=== PATIENT | female | born 1960 | race Hispanic/Latino ===

== ENCOUNTER 2019-12-05 22:09 | Inpatient (IN) | payer BC, OTHER ==
[2019-12-05] MEDS ORDERED: ONDANSETRON 4 MG/2 ML VIAL ONE (22:41)
[2019-12-05] MEDS ORDERED: FAMOTIDINE 20 MG/2 ML VIAL IV ONE (22:43)
[2019-12-05 22:46] LABS: Absolute Lymphocytes (CBC) 3.4 K/uL (0.7-4.9); Hematocrit 42.9 % (36.0-45.0); Lymphocytes % 28.7 % (15.3-44.8); RBC Red Blood Cell Count 5.15 M/uL (3.86-4.86)
[2019-12-05 22:50] LABS: Protime INR 0.93
[2019-12-05 23:03] LABS: Potassium 3.6 mmol/L (3.5-5.1)
[2019-12-05 23:16] LABS: Phosphorus 2.7 mg/dL (2.5-4.9)
[2019-12-05] MEDS ORDERED: NA CHLORIDE 0.9% 1,000 ML ONE (23:23)
[2019-12-06] LABS: NT PRO-BNP 25 pg/mL (<125); Troponin (Emerg Dept Use Only) < 0.02 ng/mL (0.0-0.045)
[2019-12-06] MEDS ORDERED: NA CHLORIDE 0.9% 50 ML IV ONE (00:23)
[2019-12-06] MEDS ORDERED: ALTEPLASE 100 ML IV ONE (00:23)
--- NOTE | 2019-12-06 01:10 | ER ---
Nurse's Notes [facility] Name: Omayra Mancia Age: 59 yrs Sex: Female : 1960 Arrival Date: 12/05/2019 Time: 22:19 Bed 3 Private MD: Diagnosis: Cerebral Vascular Accident Presentation: 12/04 22:06 Chief complaint: EMS states: Called for patient with numbness of face and left arm; On lp1 arrival of EMS, patient vomiting, then not taking back to EMS, but nodding head for questions; States numbness of face and left arm began about 2130 tonight. 22:06 Coronavirus screen: Patient unable to answer questions. Ebola Screen: No symptoms or lp1 risks identified at this time. Initial Sepsis Screen: Does the patient meet any 2 criteria? No. Patient's initial sepsis screen is negative. Does the patient have a suspected source of infection? No. Patient's initial sepsis screen is negative. Risk Assessment: Do you want to hurt yourself or someone else? Patient reports no desire to harm self or others. Onset of symptoms was December 05, 2019 at 21:30. Care prior to arrival: Glucose check: 137 Unable to obtain peripheral IV access. 22:06 Method Of Arrival: EMS: [facility] lp1 22:06 Acuity: FATMATA 2 lp1 Historical: - Allergies: 22:43 No Known Allergies; lp1 - Home Meds: 22:43 simvastatin 20 mg Oral tab nightly [Active]; quetiapine 25 mg oral tab nightly lp1 [Active]; trazodone 50 mg Oral tab nightly [Active]; metformin 500 mg Oral tab three times a day [Active]; - PMHx: 22:43 Bronchitis; lp1 - PSHx: 12/05 01:10 Hysterectomy; Cholecystectomy; lp1 - Immunization history:: Adult Immunizations unknown. - Social history:: Smoking status: Patient denies any tobacco usage or history of. Screenin/25 22:43 Abuse screen: Denies threats or abuse. Denies injuries from another. Nutritional lp1 screening: No deficits noted. Tuberculosis screening: No symptoms or risk factors identified. Fall Risk Total Thomas Fall Scale indicates High Risk Score (45 or more points). Fall prevention measures have been instituted. Side Rails Up X 2 Placed Close to Nursing Station Frequent Obs/Assessments Occuring. 22:50 Patient has been NPO before screening. The patient is alert, able to follow commands. lp1 The patient does not exhibit slurred or garbled speech The patient is not exhibiting difficulty speaking. The patient does not exhibit difficulty understanding words. The patient is able to swallow own secretions with no drooling or need for suction. Patient tolerated one teaspoon of water. No drooling, immediate coughing, gurgling, or clearing of the throat was noted. The patient tolerated 90mL of water. No drooling, immediate coughing, gurgling, or clearing of the throat was noted. The patient passed the bedside swallow screening. Oral medications may be given as ordered. Contact Physician for further diet orders. Assessment: 22:08 Reassessment: Patient transported to CT; actively vomiting, bile noted 100ml; noted to lp1 clear airway independently. 22:20 Reassessment: Patient uncooperative with NIH stroke scale assessment; keeping eyes lp1 closed and only nodding head. 22:50 Reassessment: Patient speaking with Dr. Peñaloza at this time; States feeling arms heavy, lp1 numbness around mouth. 22:55 Reassessment: Patient states starting to feel bad about 10 min until 2100 tonight, then lp1 began vomiting, x2 episodes of diarrhea. 23:30 Reassessment: Patient appears more alert at this time; interacting with at lp1 bedside; States bilateral arms feeling "heavy" and numbness around mouth Patient states symptoms have improved. 23:30 General: Appears in no apparent distress. Behavior is calm, cooperative. Pain: Denies lp1 pain. Neuro: Level of Consciousness is awake, obeys commands, lethargic, Oriented to person, place, situation. Cardiovascular: Patient's skin is warm and dry. Rhythm is sinus tachycardia. Respiratory: Respiratory effort is even, unlabored. GI: Abdomen is non-distended. : No signs and/or symptoms were reported regarding the genitourinary system. EENT: No signs and/or symptoms were reported regarding the EENT system. Derm: Skin is pink, warm \\T\\ dry. Musculoskeletal: Range of motion: intact in all extremities. 23:45 Reassessment: Dr. Peñaloza at bedside to discuss plan of care related to CT results; lp1 patient and agree to administration of TPA and demonstrate understanding of risks. 12/05 00:15 Reassessment: Nurse at bedside with patient for TPA administration. lp1 01:33 Reassessment: Hospitalist at bedside to discuss plan of care with patient. lp1 Vital Signs: 12/04 22:06 BP 170 / 101; Pulse 103; Resp 20; Temp 98.3(TE); Pulse Ox 98% on R/A; Weight 99.79 kg; lp1 22:45 BP 141 / 98; Pulse 101; Resp 16; Pulse Ox 96% on R/A; lp1 23:00 BP 144 / 98; Pulse 101; Resp 20; Pulse Ox 100% on R/A; lp1 23:30 BP 146 / 95; Pulse 108; Resp 20; Pulse Ox 97% on R/A; lp1 12/05 00:00 BP 137 / 95; Pulse 103; Resp 20; Pulse Ox 100% on R/A; lp1 00:06 Weight 85.8 kg (M); lp1 01:05 BP 133 / 91; Pulse 107; Resp 20; Pulse Ox 96% on R/A; lp1 01:35 BP 135 / 89; Pulse 104; Resp 17; Pulse Ox 98% on R/A; lp1 NIH Stroke Scale Scores: 12/04 22:15 NIHSS Score: 17 mh7 22:20 NIHSS Score: 17 lp1 23:00 NIHSS Score: 1 lp1 ED Course: 22:10 Inserted saline lock: 20 gauge in left wrist, using aseptic technique. Blood collected. rr5 22:15 Arm band placed on. lp1 22:15 Patient has correct armband on for positive identification. Bed in low position. Side lp1 rails up X2. compliance monitor on. Pulse ox on. NIBP on. 22:19 Patient arrived in ED. rr5 22:33 Marvin Peñaloza MD is Attending Physician. mh7 22:33 CT Stroke Brain w/o Contrast In Process Unspecified. EDMS 22:39 Jodi Brush, JOLLY is Primary Nurse. lp1 22:41 Triage completed. lp1 22:42 Stroke CXR 1 View In Process Unspecified. EDMS 12/05 00:00 Consent signed by patient's for administration of TPA. lp1 00:11 Inserted saline lock: 20 gauge in right wrist, using aseptic technique. rr5 00:15 One-on-one care X 60 minutes. lp1 01:08 Baidoo, Jerry is Hospitalizing Provider. 7 01:38 No provider procedures requiring assistance completed. Patient admitted, IV remains in lp1 place. Administered Medications: 12/04 22:30 Drug: Zofran (Ondansetron) 4 mg Route: IVP; Site: left wrist; lp1 23:50 Follow up: Response: Nausea is decreased lp1 22:30 Drug: Pepcid 20 mg Route: IVP; Site: left wrist; lp1 23:50 Follow up: Response: Nausea is decreased lp1 23:30 Drug: NS 0.9% 1000 ml Route: IV; Rate: 1000 ml; Site: left wrist; lp1 12/05 00:30 Follow up: IV Status: Completed infusion; IV Intake: 1000ml lp1 00:20 Drug: Alteplase {Co-Signature: rr5 (Jose Antonio Ortega RN).} Route: IV Thrombolytics; Rate: lp1 calculated rate; 01:37 Follow up: Response: No adverse reaction lp1 Intake: 00:30 IV: 1000ml; Total: 1000ml. lp1 Outcome: 01:09 Decision to Hospitalize by Provider. mh7 01:38 critical lp1 01:38 Instructed on the need for admit. 01:50 Admitted to ICU room ER room 10, Report called to JOLLY Moya lp1 02:08 Patient left the ED. lp1 NIH Stroke Scale - NIH Stroke Score Date: 12/05/2019 Time: 22:15 Total Score = 17 1a. Level of Consciousness (LOC) - 0(Alert) 1b. Level of Consciousness (LOC) (Year \\T\\ Age) - 2(Neither) 1c. LOC Commands (Open \\T\\ Closes Eyes/Finance Admin) - 2(Neither) 2. Best Gaze (Lateral Gaze Paresis) - 0(Normal) 3. Visual Field Loss - 0(No visual loss) 4. Facial Palsy - 0(Normal) 5a. Left Arm: Motor (10-second hold) - 3(No effort against gravity) 5b. Right Arm: Motor (10-second hold) - 3(No effort against gravity) 6a. Left Leg: Motor (5-second hold - always test supine) - 3(No effort against gravity) 6b. Right Leg: Motor (5-second hold - always test supine) - 3(No effort against gravity) 7. Limb Ataxia (finger/nose \\T\\ heel/shipman - test with eyes open) - 0(Absent) 8. Sensory Loss (pinprick arms/legs/face) - 1(Mild to moderate loss) 9. Best Language: Aphasia (description/naming/reading) - 0(No aphasia) 10. Dysarthria (speech clarity - read or repeat words) - 0(Normal) 11. Extinction and Inattention (visual/tactile/auditory/spatial/personal) - 0(No abnormality) Initials: mh7 NIH Stroke Scale - NIH Stroke Score Date: 12/05/2019 Time: 22:20 Total Score = 17 1a. Level of Consciousness (LOC) - 0(Alert) 1b. Level of Consciousness (LOC) (Year \\T\\ Age) - 2(Neither) 1c. LOC Commands (Open \\T\\ Closes Eyes/Finance Admin) - 2(Neither) 2. Best Gaze (Lateral Gaze Paresis) - 0(Normal) 3. Visual Field Loss - 0(No visual loss) 4. Facial Palsy - 0(Normal) 5a. Left Arm: Motor (10-second hold) - 3(No effort against gravity) 5b. Right Arm: Motor (10-second hold) - 3(No effort against gravity) 6a. Left Leg: Motor (5-second hold - always test supine) - 3(No effort against gravity) 6b. Right Leg: Motor (5-second hold - always test supine) - 3(No effort against gravity) 7. Limb Ataxia (finger/nose \\T\\ heel/shipman - test with eyes open) - 0(Absent) 8. Sensory Loss (pinprick arms/legs/face) - 1(Mild to moderate loss) 9. Best Language: Aphasia (description/naming/reading) - 0(No aphasia) 10. Dysarthria (speech clarity - read or repeat words) - 0(Normal) 11. Extinction and Inattention (visual/tactile/auditory/spatial/personal) - 0(No abnormality) Initials: lp1 NIH Stroke Scale - NIH Stroke Score Date: 12/05/2019 Time: 23:00 Total Score = 1 1a. Level of Consciousness (LOC) - 0(Alert) 1b. Level of Consciousness (LOC) (Year \\T\\ Age) - 0(Both) 1c. LOC Commands (Open \\T\\ Closes Eyes/Finance Admin) - 0(Both) 2. Best Gaze (Lateral Gaze Paresis) - 0(Normal) 3. Visual Field Loss - 0(No visual loss) 4. Facial Palsy - 0(Normal) 5a. Left Arm: Motor (10-second hold) - 0(No drift) 5b. Right Arm: Motor (10-second hold) - 0(No drift) 6a. Left Leg: Motor (5-second hold - always test supine) - 0(No drift) 6b. Right Leg: Motor (5-second hold - always test supine) - 0(No drift) 7. Limb Ataxia (finger/nose \\T\\ heel/shipman - test with eyes open) - 0(Absent) 8. Sensory Loss (pinprick arms/legs/face) - 1(Mild to moderate loss) 9. Best Language: Aphasia (description/naming/reading) - 0(No aphasia) 10. Dysarthria (speech clarity - read or repeat words) - 0(Normal) 11. Extinction and Inattention (visual/tactile/auditory/spatial/personal) - 0(No abnormality) Initials: lp1 Signatures: Dispatcher [employer] EDJodi Mckeon, RN RN lp1 Jose Antonio Ortega, RN RN rr5 Marvin Peñaloza MD MD 7 Jose Antonio Ortega RN rr5 Corrections: (The following items were deleted from the chart) 00:57 12/04 22:06 Care prior to arrival: Unable to obtain peripheral IV access lp1 1 12/05 01:04 12/04 22:08 Reassessment: Patient transported to CT; actively vomiting, bile lp1 noted 100ml lp1 12/05 01:12 12/04 22:43 PSHx: Unable to obtain; lp1 lp1 12/05 01:15 12/04 22:20 Reassessment: Patient uncooperative with NIH stroke scale lp1 assessment lp1
--- NOTE | 2019-12-06 01:11 | EDPHYS ---
Physician Documentation [facility] Name: Omayra Mancia Age: 59 yrs Sex: Female : 1960 Arrival Date: 12/05/2019 Time: 22:19 Bed 3 Private MD: ED Physician Marvin Peñaloza HPI: 12/04 23:56 This 59 yrs old Female presents to ER via EMS with complaints of Numbness mh7 Face. Left Arm. 23:56 The patient's problem is reported as paresthesias, in left upper extremity, in left mh7 side of face. Onset: The symptoms/episode began/occurred today. 23:58 Onset: The symptoms/episode began/occurred at 21:30. Duration: The episodes are mh7 intermittent. Context: the episode(s) was witnessed, by family, , symptoms became apparent on December 05, 2019, at 21:30. occurred at home, occurred while the patient was sitting, Possible contributing factors include: Patient is a know diabetic. The symptoms are alleviated by nothing. The symptoms are aggravated by nothing. Associated signs and symptoms: Pertinent positives: dizziness, nausea, numbness, tingling, vomiting. Severity of symptoms: At their worst the symptoms were moderate today, in the emergency department the symptoms have improved mildly. Patient's baseline: Neuro: alert and fully oriented, Motor: no deficits, Ambulation: walks without assistance, Speech: normal. Patient started having facial and left upper extremity numbness \T\2130 tonight. She also had nausea and vomiting. Per EMS patient suddenly stopped speaking during their assessment then later started to speak again. She denies any headache, chest pain, abdominal pain, fever, cough, SOB.. Historical: - Allergies: 22:43 No Known Allergies; lp1 - Home Meds: 22:43 simvastatin 20 mg Oral tab nightly [Active]; quetiapine 25 mg oral tab nightly lp1 [Active]; trazodone 50 mg Oral tab nightly [Active]; metformin 500 mg Oral tab three times a day [Active]; - PMHx: 22:43 Bronchitis; lp1 - PSHx: 12/05 01:10 Hysterectomy; Cholecystectomy; lp1 - Immunization history:: Adult Immunizations unknown. - Social history:: Smoking status: Patient denies any tobacco usage or history of. ROS: 12/04 23:58 Constitutional: Negative for fever, chills, and weight loss, Eyes: Negative for injury, mh7 pain, redness, and discharge, ENT: Negative for injury, pain, and discharge, Neck: Negative for injury, pain, and swelling, Cardiovascular: Negative for chest pain, palpitations, and edema, Respiratory: Negative for shortness of breath, cough, wheezing, and pleuritic chest pain, Back: Negative for injury and pain, : Negative for injury, bleeding, discharge, and swelling, Skin: Negative for injury, rash, and discoloration, Psych: Negative for depression, anxiety, suicide ideation, homicidal ideation, and hallucinations, Allergy/Immunology: Negative for hives, rash, and allergies, Endocrine: Negative for neck swelling, polydipsia, polyuria, polyphagia, and marked weight changes, Hematologic/Lymphatic: Negative for swollen nodes, abnormal bleeding, and unusual bruising. Exam: 22:15 Head/Face: Normocephalic, atraumatic. Eyes: Pupils equal round and reactive to light, mh7 extra-ocular motions intact. Lids and lashes normal. Conjunctiva and sclera are non-icteric and not injected. Cornea within normal limits. Periorbital areas with no swelling, redness, or edema. ENT: Nares patent. No nasal discharge, no septal abnormalities noted. Tympanic membranes are normal and external auditory canals are clear. Oropharynx with no redness, swelling, or masses, exudates, or evidence of obstruction, uvula midline. Mucous membranes moist. Neck: Trachea midline, no thyromegaly or masses palpated, and no cervical lymphadenopathy. Supple, full range of motion without nuchal rigidity, or vertebral point tenderness. No Meningismus. Chest/axilla: Normal chest wall appearance and motion. Nontender with no deformity. No lesions are appreciated. Cardiovascular: Regular rate and rhythm with a normal S1 and S2. No gallops, murmurs, or rubs. Normal PMI, no JVD. No pulse deficits. Respiratory: Lungs have equal breath sounds bilaterally, clear to auscultation and percussion. No rales, rhonchi or wheezes noted. No increased work of breathing, no retractions or nasal flaring. Abdomen/GI: Soft, non-tender, with normal bowel sounds. No distension or tympany. No guarding or rebound. No evidence of tenderness throughout. Back: No spinal tenderness. No costovertebral tenderness. Full range of motion. Skin: Warm, dry with normal turgor. Normal color with no rashes, no lesions, and no evidence of cellulitis. 22:15 Constitutional: The patient appears in no acute distress, alert. 22:15 Musculoskeletal/extremity: Extremities: all appear grossly normal, with no appreciated pain with palpation, ROM: limited active range of motion, in all extremities, limited passive range of motion, in all extremities, Circulation is intact in all extremities. Pulses: are normal with no appreciated deficits, Perfusion: the patient is normally perfused throughout, Perfusion: the extremity is normally perfused throughout, Tingling of extremity. numbness, Joints: Weight bearing: is unable to bear weight, Tendon exam: specific tendon testing normal through active and passive range of motion 22:15 Neuro: Orientation: unable to test, the patient refuses to cooperate, Mentation: responsive to voice Memory: unable to test, the patient refuses to cooperate, Cranial nerves: unable to test, the patient refuses to cooperate, Cerebellar function: unable to test, the patient refuses to cooperate, Motor: unable to test, the patient refuses to cooperate, Sensation: unable to test, the patient refuses to cooperate, Gait: not tested. Deep tendon reflexes are normal, Babinski testing is normal, seizure activity, is not displayed by the patient, Abnormal movements: there are no abnormal movements. 23:58 Radiologist reports: No acute intracranial findings [facility] Vital Signs: 22:06 BP 170 / 101; Pulse 103; Resp 20; Temp 98.3(TE); Pulse Ox 98% on R/A; Weight 99.79 kg; lp1 22:45 BP 141 / 98; Pulse 101; Resp 16; Pulse Ox 96% on R/A; lp1 23:00 BP 144 / 98; Pulse 101; Resp 20; Pulse Ox 100% on R/A; lp1 23:30 BP 146 / 95; Pulse 108; Resp 20; Pulse Ox 97% on R/A; lp1 12/05 00:00 BP 137 / 95; Pulse 103; Resp 20; Pulse Ox 100% on R/A; lp1 00:06 Weight 85.8 kg (M); lp1 01:05 BP 133 / 91; Pulse 107; Resp 20; Pulse Ox 96% on R/A; lp1 01:35 BP 135 / 89; Pulse 104; Resp 17; Pulse Ox 98% on R/A; lp1 NIH Stroke Scale Scores: 12/04 22:15 NIHSS Score: 17 mh7 22:20 NIHSS Score: 17 lp1 23:00 NIHSS Score: 1 lp1 MDM: 22:15 Response to treatment: the patient's symptoms have markedly improved after treatment. [facility] 22:15 ED course: Patient became more AAO X 3, NAD, VSS, moving extremities without [facility] difficulty. Discussed with Dr. De La Torre who recommended giving TPA for stroke in evolution. Discussed all test results and recommendations and risk/benefits with patient and her . She decided to receive TPA as recommended. She reported symptoms improvement after TPA was given.. 22:[address] [facility] 12/05 01:05 Differential diagnosis: CVA, TIA, paralysis, metabolic disorder, drug effects. Data [facility] reviewed: vital signs, nurses notes, EMS record, lab test result(s), CBC, electrolytes, urinalysis, EKG, radiologic studies, CT scan, plain films. Data interpreted: Pulse oximetry: on room air is 96 %. Interpretation: normal. Counseling: I had a detailed discussion with the patient and/or guardian regarding: the historical points, exam findings, and any diagnostic results supporting the discharge/admit diagnosis, the presence of at least one elevated blood pressure reading (>120/80) during this emergency department visit, lab results, the need for further work-up and treatment in the hospital. Physician consultation: Tee De La Torre MD was contacted at 23:40, regarding patient's condition, and will see patient in inpatient room, would like admission per Dr. Jerry Casas. 12/04 22:27 Order name: Basic Metabolic Panel; Complete Time: 23:25 [facility] 12/04 22:27 Order name: CBC with Diff; Complete Time: 23:25 [facility] 12/04 22:27 Order name: Protime (+inr); Complete Time: 23:25 nd5 12/04 22:27 Order name: Ptt, Activated; Complete Time: 23:25 [facility] 12/04 22:34 Order name: UDS [facility] 12/04 22:35 Order name: Acetaminophen; Complete Time: 23:25 [facility] 12/04 22:35 Order name: Salicylate; Complete Time: 23:41 [facility] 12/04 22:35 Order name: ETOH Level; Complete Time: 23:25 [facility] 12/04 22:35 Order name: Magnesium; Complete Time: 23:25 [facility] 12/04 22:35 Order name: Phosphorus; Complete Time: 23:25 [facility] 12/04 22:40 Order name: Glucose, Ancillary Testing; Complete Time: 22:43 [facility] 12/04 23:25 Order name: Troponin (emerg Dept Use Only); Complete Time: 00:35 [facility] 12/04 23:26 Order name: PROBNP; Complete Time: 00:35 [facility] 12/04 23:38 Order name: Lipase; Complete Time: 00:35 [facility] 12/04 22:27 Order name: CT Stroke Brain w/o Contrast [facility] 12/04 22:27 Order name: Stroke CXR 1 View [facility] 12/04 22:27 Order name: EKG; Complete Time: 22:29 [facility] 12/04 22:27 Order name: Accucheck; Complete Time: 22:46 [facility] 12/04 22:27 Order name: Cardiac monitoring; Complete Time: 22:46 [facility] 12/04 22:27 Order name: EKG - Nurse/Tech; Complete Time: 01:38 [facility] 12/04 22:27 Order name: IV Saline Lock; Complete Time: 22:46 [facility] 12/04 22:27 Order name: Labs collected and sent; Complete Time: 22:46 [facility] 12/04 22:27 Order name: NPO; Complete Time: 22:46 [facility] 12/04 22:27 Order name: O2 Per Protocol; Complete Time: 22:46 [facility] 12/04 22:27 Order name: O2 Sat Monitoring; Complete Time: 22:46 [facility] 12/05 01:37 Order name: CONS Physician Consult [facility] 12/04 22:27 Order name: Stroke Swallow Screen; Complete Time: 01:15 [facility] 12/04 23:38 Order name: Urine Dipstick-Ancillary (obtain specimen); Complete Time: 02:08 Administered Medications: 12/04 22:30 Drug: Zofran (Ondansetron) 4 mg Route: IVP; Site: left wrist; lp1 23:50 Follow up: Response: Nausea is decreased lp1 22:30 Drug: Pepcid 20 mg Route: IVP; Site: left wrist; lp1 23:50 Follow up: Response: Nausea is decreased lp1 23:30 Drug: NS 0.9% 1000 ml Route: IV; Rate: 1000 ml; Site: left wrist; lp1 12/05 00:30 Follow up: IV Status: Completed infusion; IV Intake: 1000ml lp1 00:20 Drug: Alteplase {Co-Signature: [email or web address] (Jose Antonio Ortega RN).} Route: IV Thrombolytics; Rate: lp1 calculated rate; 01:37 Follow up: Response: No adverse reaction lp1 Disposition: 12/06/19 01:09 Hospitalization ordered by Jerry Casas for Inpatient Admission. Preliminary diagnosis is Cerebral Vascular Accident. - Bed requested for Intensive Care Unit. - Status is Inpatient Admission. lp1 - Condition is Stable. - Problem is new. - Symptoms have improved. NIH Stroke Scale - NIH Stroke Score Date: 12/05/2019 Time: 22:15 Total Score = 17 1a. Level of Consciousness (LOC) - 0(Alert) 1b. Level of Consciousness (LOC) (Year \T\ Age) - 2(Neither) 1c. LOC Commands (Open \T\ Closes Eyes/Hypercil [employer] Transformer Assembler) - 2(Neither) 2. Best Gaze (Lateral Gaze Paresis) - 0(Normal) 3. Visual Field Loss - 0(No visual loss) 4. Facial Palsy - 0(Normal) 5a. Left Arm: Motor (10-second hold) - 3(No effort against gravity) 5b. Right Arm: Motor (10-second hold) - 3(No effort against gravity) 6a. Left Leg: Motor (5-second hold - always test supine) - 3(No effort against gravity) 6b. Right Leg: Motor (5-second hold - always test supine) - 3(No effort against gravity) 7. Limb Ataxia (finger/nose \T\ heel/shipman - test with eyes open) - 0(Absent) 8. Sensory Loss (pinprick arms/legs/face) - 1(Mild to moderate loss) 9. Best Language: Aphasia (description/naming/reading) - 0(No aphasia) 10. Dysarthria (speech clarity - read or repeat words) - 0(Normal) 11. Extinction and Inattention (visual/tactile/auditory/spatial/personal) - 0(No abnormality) Initials: mh7 NIH Stroke Scale - NIH Stroke Score Date: 12/05/2019 Time: 22:20 Total Score = 17 1a. Level of Consciousness (LOC) - 0(Alert) 1b. Level of Consciousness (LOC) (Year \T\ Age) - 2(Neither) 1c. LOC Commands (Open \T\ Closes Eyes/Hypercil Core Transformer Assembler) - 2(Neither) 2. Best Gaze (Lateral Gaze Paresis) - 0(Normal) 3. Visual Field Loss - 0(No visual loss) 4. Facial Palsy - 0(Normal) 5a. Left Arm: Motor (10-second hold) - 3(No effort against gravity) 5b. Right Arm: Motor (10-second hold) - 3(No effort against gravity) 6a. Left Leg: Motor (5-second hold - always test supine) - 3(No effort against gravity) 6b. Right Leg: Motor (5-second hold - always test supine) - 3(No effort against gravity) 7. Limb Ataxia (finger/nose \T\ heel/shipman - test with eyes open) - 0(Absent) 8. Sensory Loss (pinprick arms/legs/face) - 1(Mild to moderate loss) 9. Best Language: Aphasia (description/naming/reading) - 0(No aphasia) 10. Dysarthria (speech clarity - read or repeat words) - 0(Normal) 11. Extinction and Inattention (visual/tactile/auditory/spatial/personal) - 0(No abnormality) Initials: lp1 NIH Stroke Scale - NIH Stroke Score Date: 12/05/2019 Time: 23:00 Total Score = 1 1a. Level of Consciousness (LOC) - 0(Alert) 1b. Level of Consciousness (LOC) (Year \T\ Age) - 0(Both) 1c. LOC Commands (Open \T\ Closes Eyes/Hypercil Core Transformer Assembler) - 0(Both) 2. Best Gaze (Lateral Gaze Paresis) - 0(Normal) 3. Visual Field Loss - 0(No visual loss) 4. Facial Palsy - 0(Normal) 5a. Left Arm: Motor (10-second hold) - 0(No drift) 5b. Right Arm: Motor (10-second hold) - 0(No drift) 6a. Left Leg: Motor (5-second hold - always test supine) - 0(No drift) 6b. Right Leg: Motor (5-second hold - always test supine) - 0(No drift) 7. Limb Ataxia (finger/nose \T\ heel/shipman - test with eyes open) - 0(Absent) 8. Sensory Loss (pinprick arms/legs/face) - 1(Mild to moderate loss) 9. Best Language: Aphasia (description/naming/reading) - 0(No aphasia) 10. Dysarthria (speech clarity - read or repeat words) - 0(Normal) 11. Extinction and Inattention (visual/tactile/auditory/spatial/personal) - 0(No abnormality) Initials: lp1 Signatures: Dispatcher [employer] EDMS Elidia Obrien RN RN Jodi Brush RN RN 1 Izabel Gallagher ar5 Marvin Peñaloza MD MD 7 Jose Antonio Ortega RN [email or web address] Corrections: (The following items were deleted from the chart) 01:12 12/04 22:43 PSHx: Unable to obtain; lp1 lp1 12/05 01:35 01:09 Hospitalization Ordered by Jerry Casas for Inpatient Admission. Preliminary diagnosis is Cerebral Vascular Accident. Bed requested for Intensive Care Unit. Status is Inpatient Admission. Condition is Stable. Problem is new. Symptoms have improved. [facility] 02:08 01:35 12/06/2019 01:09 Hospitalization Ordered by Jerry Casas for Inpatient [facility] Admission. Preliminary diagnosis is Cerebral Vascular Accident. Bed requested for Intensive Care Unit. Status is Inpatient Admission. Condition is Stable. Problem is new. Symptoms have improved.
--- NOTE | 2019-12-06 02:03 | P.HP ---
Certification for Inpatient Patient admitted to: Inpatient With expected LOS: >2 Midnights Patient will require the following post-hospital care: None Practitioner: I am a practitioner with admitting privileges, knowledge of patient current condition, hospital course, and medical plan of care. Services: Services provided to patient in accordance with Admission requirements found in Title 42 Section 412.3 of the Code of Federal Regulations <Bryant Giles - Last Filed: 12/06/19 01:53> Patient History Date of Service: 12/06/19 Reason for admission: CVA/weakness History of Present Illness: 59-year-old female with a past medical history of type 2 diabetes mellitus and hyperlipidemia presents to the emergency room via EMS with complaints of possible stroke. Patient states that she was driving home when she felt sudden onset of nausea. She felt a sudden onset of weakness in both arms and both legs. States that she has had intermittent tingling/paresthesias of the left side ever face for greater than 2 months. States that she barely made it home. Told her that she was not feeling well. Ate some watermelon and got nauseous again and vomited. Per family members patient was not able to speak at all when asked questions. Had significant weakness of the arms and legs. EMS was called and patient was brought to the ER. In the emergency room patient was very slow to answer questions. Is alert and oriented x3. Patient has bilateral arm weakness with a 1/5 bilateral hand strength and a 1/5 bilateral leg strength. Her neurologic deficits are bilateral. Patient has generalized weakness on both sides in both arms and legs. Has difficulty maintaining arms extended and lifting legs. Sensation is intact. Speech is intact just slow to answer. ER physician noted that patient also stopped speaking during his assessment and shortly after started speaking again. Neurology was consulted and the patient received tPA in the ER. CT of the brain shows no intracranial bleed. EKG unremarkable. Vital stable and overall lab work in the ED is unremarkable. Blood glucose on arrival to ED was greater than 100. On examination the patient is still having generalized weakness in both upper extremities and lower extremities. Her speech has improved and is able to answer questions but is very slow to speak. Her nausea vomiting have resolved P patient denies chest pain, headache abdominal pain fever cough or shortness of breath. On examination her NIHSS score is 4. Current vitals are blood pressure 133/91, pulse of 107, respiratory 20 and O2 saturations of 96% on room air. Patient will be admitted to the ICU and further evaluated. Home medications list reviewed: Yes - Past Medical/Surgical History -: Type 2 diabetes mellitus -: Hyperlipidemia -: Insomnia -: Cholecystectomy -: Hysterectomy -: Tummy tuck Psychosocial/ Personal History: Lives at home with . - Family History Family History: Reviewed- Non-Contributory - Social History Smoking Status: Never smoker Alcohol use: No CD- Drugs: No Caffeine use: No Place of Residence: Home <TishaBryant - Last Filed: 12/06/19 01:53> Date of Service: 12/06/19 <nestor bishop - Last Filed: 12/06/19 14:10> Allergies No Known Allergies Allergy (Verified 12/06/19 02:45) Home Medications: Metformin HCl 500 mg PO TID 12/06/19 Quetiapine Fumarate [Seroquel] 25 mg PO BEDTIME 12/06/19 Simvastatin 20 mg PO BEDTIME 12/06/19 Trazodone [Desyrel*] 50 mg PO BEDTIME 12/06/19 Review of Systems General: As per HPI Eyes: Unremarkable ENT: Unremarkable Respiratory: Unremarkable Cardiovascular: Unremarkable Gastrointestinal: Nausea, Vomiting Genitourinary: Unremarkable Musculoskeletal: As per HPI Integumentary: Unremarkable Neurological: Weakness, As per HPI Lymphatics: Unremarkable <TishaBryant - Last Filed: 12/06/19 01:53> Physical Examination - Vital Signs Temperature: 98.3 F Blood Pressure: 133/91 Pulse: 107 Respirations: 20 Pulse Ox (%): 96 (RA) - Physical Exam General: Alert, In no apparent distress, Oriented x3, Cooperative HEENT: Atraumatic, Normocephalic, PERRLA, Mucous membr. moist/pink Neck: Supple, No Thyromegaly, Other (Trachea midline) Respiratory: Clear to auscultation bilaterally, Normal air movement Cardiovascular: No edema, Normal pulses Capillary refill: <2 Seconds Gastrointestinal: Normal bowel sounds, Soft and benign, Non-distended Musculoskeletal: No clubbing, No swelling, No contractures, No tenderness Integumentary: No rashes, No breakdown, No significant lesion, No ten derness/swelling Neurological: Normal speech, Normal tone, Sensation intact, Abnormal strength (All 4 extremities) - Studies Laboratory Data (last 24 hrs) 12/05/19 22:34: Lipase 122 12/05/19 22:34: Phosphorus 2.7, Magnesium 2.0 12/05/19 22:34: PT 11.0, INR 0.93, APTT 24.3 12/05/19 22:34: WBC 11.9 H, Hgb 14.4, Hct 42.9, Plt Count 367 12/05/19 22:34: Sodium 139, Potassium 3.6, BUN 9, Creatinine 0.87, Glucose 184 H <Bryant Giles - Last Filed: 12/06/19 01:53> - Studies Laboratory Data (last 24 hrs) 12/05/19 22:34: Lipase 122 12/05/19 22:34: Phosphorus 2.7, Magnesium 2.0 12/05/19 22:34: PT 11.0, INR 0.93, APTT 24.3 12/05/19 22:34: WBC 11.9 H, Hgb 14.4, Hct 42.9, Plt Count 367 12/05/19 22:34: Sodium 139, Potassium 3.6, BUN 9, Creatinine 0.87, Glucose 184 H <nestor bishop - Last Filed: 12/06/19 14:10> Assessment and Plan - Plan Impression: CVA: Type 2 diabetes mellitus: Hyperlipidemia: Plan: CVA: Patient received tPA in the ED. Neurology was consulted. Will order MRI brain in the morning. Echocardiogram and carotid Dopplers as well. Place on continuous telemetry. No anticoagulation for [address] head with no intracranial bleed. Type 2 diabetes mellitus: Accu-Cheks Q 1 hr, mild sliding scale insulin. Monitor blood glucose. Hyperlipidemia: Will resume all medications once patient can tolerate p.o.. Discharge Plan: Home Plan to discharge in: 48 Hours - Advance Directives Does patient have a Living Will: No Does patient have a Durable POA for Healthcare: No - Code Status/Comfort Care Code Status Assessed: Yes Time Spent Managing Pts Care (In Minutes): 55 <Bryant Giles - Last Filed: 12/06/19 01:53> Physician Review: Patient Assessed, Agree with Above Assessment and Plan Physician Review Additional Text: ? Acute CVA. Status post TPA. Plan: Neurology consult Repeat CT head within 24 hours Permissive hypertension. <nestor bishop - Last Filed: 12/06/19 14:10>
[2019-12-06 02:55] VITALS: BMI 33.5
[2019-12-06] MEDS: NA CHLORIDE 0.9% 1,000 ML IV SCH ×2 (03:18→16:38)
[2019-12-06] MEDS ORDERED: NA CHLORIDE 0.9% 1,000 ML IV SCH (03:18)
[2019-12-06] MEDS ORDERED: NA CHLORIDE 0.9% 1,000 ML ONE (03:52)
[2019-12-06] MEDS: INSULIN -REGULAR HUMAN 50 UNIT/0.5 ML ML SQ SCH ×4 (06:00→20:38)
[2019-12-06 06:35] LABS: Absolute Lymphocytes (CBC) 2.7 K/uL (0.7-4.9); Basophils % 1.2 % (0-1.3); Hematocrit 38.8 % (36.0-45.0); Lymphocytes % 21.8 % (15.3-44.8); MPV 7.9 fL (7.6-11.3); RBC Red Blood Cell Count 4.62 M/uL (3.86-4.86)
[2019-12-06 06:39] LABS: Protime INR 1.01
[2019-12-06 06:45] LABS: Magnesium 2.2 mg/dL (1.8-2.4)
--- NOTE | 2019-12-06 12:25 | EKG ---
Test Date: 2019-12-05 Test Time: 22:25:40 Wellness Program Administrator: RR MEASUREMENT RESULTS: Intervals: Rate: 104 ID: [id number] QRSD: 90 QT: 350 QTc: 460 [place]: P: 36 ID: [id number] QRS: 22 T: 3 INTERPRETIVE STATEMENTS: Sinus tachycardia Otherwise normal ECG Compared to ECG 04/16/2017 02:39:40 Sinus rhythm no longer present Electronically Signed On 12-06-19 12:24:14 CDT by Roldan Reyes
--- NOTE | 2019-12-06 14:16 | P.PN ---
Date of Service: 12/06/19 Patient seen and examined. She stated she is able to talk better and moving her limbs more now. She is complaining of neck pain. Blood pressure is soft. Speech is better but also reporting generalized body pains. Power in all limbs-4/5. Plan: Neurology consult is pending. Speech therapy evaluate for dysphagia. Check lipid profile Check UA. Repeat CT in 24 hrs after which aspirin will be initiated. Obtain MRI of the brain.
--- NOTE | 2019-12-06 18:08 | RAD REPORT ---
EXAM DESCRIPTION: CT - Head Brain Wo Cont - 12/06/2019 5:36 pm CLINICAL HISTORY: cva COMPARISON: December 05, 2019 TECHNIQUE: Computed axial tomography of the head was obtained. IV contrast was not requested. All CT scans are performed using dose optimization technique as appropriate and may include automated exposure control or mA/KV adjustment according to patient size. FINDINGS: An intracranial bleed is not seen . The ventricles are normal in caliber. No extra-axial fluid collection is noted. Fluid within the sinuses/ mastoids is not seen. IMPRESSION: No acute intracranial abnormality is seen. If patient's symptoms persist MRI of the bra in would be recommended.
--- NOTE | 2019-12-06 20:56 | RAD REPORT ---
EXAM DESCRIPTION: USCarotid Artery Bilateral12/06/2019 8:02 pm CLINICAL HISTORY: CVA COMPARISON: None FINDINGS: The velocity of the right internal carotid artery equals 69 cm/sec. The right ICA/CCA rati o point The velocity of the left internal carotid artery equals 90 cm/sec. The left ICA/CCA ratio 0.9 Plaque is not visualized within the carotid arteries The vertebral arteries demonstrate antegrade flow IMPRESSION: Unremarkable exam NASCET criteria used. Mild 0-49% stenosis Moderate 50-69% stenosis Severe 70-99% stenosis
--- NOTE | 2019-12-06 21:28 | CON ---
Reason For Consultation: Consultation called because of possible stroke. History Of Present Illness: Ms. Mancia is a 59-year-old right-handed patient with diabete s mellitus type 2 and dyslipidemia, who developed possible stroke-like symptoms yesterday while drnenai ng home. Her said she ate at a restaurant and about maybe 6 hours later developed nausea, vo miting, diarrhea, and then had some numbness on her face, although she was not clear which side, and weakness and it was actually placed on both arms, both legs, and both sides of the face. What she at e was apparently a watermelon, but may have been something else at the restaurant. She was brought b y EMS to [facility] and her head CT scan was negative. She was in the window for tPA and si nce it was possible, it could be a posterior circulation stroke. In evolution, she did receive tPA. Post tPA, her symptoms were slowly resolving. She did have an NIH stroke scale of 4 at the time she received a tPA and within several hours of receiving fluids and medications for nausea, symptoms ess entially resolved and there was no again focal weakness to her symptoms. Repeat CT scan done today s hows no evidence of any acute ischemic or hemorrhagic stroke and in my evaluation, the patient has a normal neurological examination without any deficits. Past Medical History: As indicated in addition to insomnia. Past Surgical History: Cholecystectomy, hysterectomy, and abdominoplasty. Social History: Lives with at home. No alcohol, tobacco, or IV drug use. Family History: Noncontributory. Allergies: NO KNOWN DRUG ALLERGIES. Medications: At home, metformin 500 mg 3 times a day, Seroquel 25 mg at bedtime, simvastatin 10 mg a t bedtime, Desyrel 50 mg at bedtime. Review of Systems: Aside from mentioned above where she had the nausea and vomiting, there was no fevers or chills. No myalgias, arthralgias, rash, headache, weight change. No psychiatric issues. No dermatological issu es. No genitourinary issues. Physical Examination: Vital Signs: Blood pressure 123/62, pulse 74, respiratory rate 16 to 18, temperature 98.6, oxygen sa turation 99% on room air, weight 189 pounds, height 5 feet 3 inches, BMI 33.5. General: Ms. Mancia is resting in bed. Her sister and are at the bedside. She is in no a cute distress. HEENT: She is normocephalic, atraumatic. Sclerae anicteric. Oropharynx is pink and moist. Neck: Supple. Chest: Clear. Heart: Regular. Extremities: No edema, clubbing, or cyanosis. Neurologic: She is alert and oriented to person, place, situation, time. Follows all commands appro priately. Cranial nerves 2 through 12 are intact by exam. Motor examination in the upper and lower extremities are 5/5 proximally and distally. Sensory exam intact to light touch, pinprick, and tempe rature in arms and legs. Coordination intact in upper and lower extremities. Reflexes 2+ in the upp er and lower extremities and symmetric. She has actually good stance, stride, and arm swing in terms of gait. Laboratory Studies: Complete blood count with differential is normal. She had a slightly elevated w radha blood cell count of 12.3 with normal differential, normal hemoglobin and hematocrit. INR 1.01. Chemistries remarkable for a slightly elevated glucose 149 max, calcium slightly low at 8.4, magnesi um normal at 2.2, lipase normal at 122, sodium and potassium normal, carbon dioxide, BUN, creatinine normal. Her drug screen did show it was negative. Her electrocardiogram showed sinus tachycardia, o therwise normal. Assessment: Ms. Mancia is a 59-year-old patient with symptoms that are not necessarily consistent with a stroke, possibly posterior circulation. In the event, CT was negative prior to tPA and negati ve since tPA, and her symptoms have resolved. More likely, she has a gastrointestinal related set of symptoms, perhaps after eating some watermelon or some unusual foods. She has not been ruled out fo r COVID-19, which can present in this fashion as well. Plan: 1.COVID-19 nasal swab test. 2.The patient may go home on aspirin and folic acid. Continue her statin. Aggressive management of diabetes mellitus, hypertension, and regular exercise 30 minutes daily. Hydrate with 8 glasses of w ater daily and follow up in Dr. De La Torre's clinic in 1 month. EULOGIO/DOMINIC Voice ID: [id number] Report ID: [id number]
--- NOTE | 2019-12-06 21:40 | RAD REPORT ---
EXAM DESCRIPTION: RAD - Chest Single View - 12/05/2019 10:42 pm CLINICAL HISTORY: 51-year-old female with weakness. TECHNIQUE: Single view, AP portable chest was obtained. COMPARISON: None. FINDINGS: Unremarkable cardiac and mediastinal silhouette. Heart size is mildly prominent, however m ay be exaggerated by low lung volumes and portable technique. Low lung volumes grossly clear without focal opacity, pneumothorax or pleural effusions. The visual ized bones are within normal limits. IMPRESSION: No acute cardiopulmonary abnormalities. Electronically signed by: Radha Mckenzie MD 12/06/2019 12:17 AM CDT Due to temporary technical issues with the PACS/Fluency reporting system, reports are being signed by the in house radiologist without review as a courtesy to ensure prompt reporting. The interpreting r adiologist is fully responsible for the content of the report.
--- NOTE | 2019-12-06 21:50 | RAD REPORT ---
EXAM DESCRIPTION: CT - Ct Stroke Brain Wo Cont - 12/06/2019 6:49 am ADDENDUM #1 ADDENDUM: THIS REPORT CONTAINS FINDINGS THAT MAY BE CRITICAL TO PATIENT'S CARE: The findings were verbally discussed via telephone conference with Marvin Peñaloza by Dr. Rowley on 12/05/2019 10:46 PM CDT. The results were acknowledged and understood. Electronically signed by: Rafa Rowley DO 12/05/2019 10:57 PM CDT End of Addendum EXAM DESCRIPTION: Ct Stroke Brain Wo Cont CLINICAL HISTORY: 59 years Female MENTAL STATUS CHANGE COMPARISON: None TECHNIQUE: Contiguous axial images of the brain were obtained without the administration of intraven ous contrast.This exam was performed according to our departmental dose-optimization program which in cludes use of Automated Exposure Control, adjustment of the mA and/or kV according to patient size an d/or use of iterative reconstruction technique. DLP: 897 mGy*cm FINDINGS: Brain: No acute intracranial hemorrhage. No extra-axial collection. No mass effect or bea iation. Ventricles: Within normal limits in size. Globes and orbits: No acute abnormality. Bones: No acute osseous finding Paranasal sinuses: Right maxillary mucous retention cyst. No air-fluid level Mastoid air cells: Well pneumatized. Soft tissues: Within normal limits IMPRESSION: No acute intracranial abnormality. Considerable MR brain if clinically indicated. Electronically signed by: Rafa Rowley DO 12/05/2019 10:41 PM CDT Due to temporary technical issues with the PACS/Fluency reporting system, reports are being signed by the in house radiologist without review as a courtesy to ensure prompt reporting. The interpreting r adiologist is fully responsible for the content of the report.
[2019-12-07] MEDS ORDERED: ACETAMINOPHEN 500 MG TAB PO PRN (05:13)
[2019-12-07] MEDS ORDERED: ACETAMINOPHEN 500 MG TAB ONE (05:29)
[2019-12-07] MEDS: INSULIN -REGULAR HUMAN 50 UNIT/0.5 ML ML SQ SCH ×2 (07:30→10:37)
[2019-12-07 08:06] VITALS: TEMP 98
[2019-12-07 10:12] LABS: Absolute Lymphocytes (CBC) 2.8 K/uL (0.7-4.9); Basophils % 1.5 % (0-1.3); Hematocrit 39.6 % (36.0-45.0); Lymphocytes % 37.5 % (15.3-44.8); MPV 7.5 fL (7.6-11.3); RBC Red Blood Cell Count 4.76 M/uL (3.86-4.86)
[2019-12-07 10:24] LABS: Potassium 3.4 mmol/L (3.5-5.1)
[2019-12-07] MEDS ORDERED: POTASSIUM CL SA 10 MEQ TAB PO ONE ×2 (10:36→11:17)
[2019-12-07 12:09] VITALS: O2SAT 97
--- NOTE | 2019-12-07 12:13 | P.PN ---
Subjective Date of Service: 12/07/19 Chief Complaint: CVA/weakness Patient feels quite weak. She is needing a lot of assistance with transfer. She denies headache. Physical Examination - Vital Signs Temperature: 98.0 F Blood Pressure: 109/72 Pulse: 76 Respirations: 22 Pulse Ox (%): 98 - Physical Exam General: In no apparent distress, Oriented x3 Neck: Supple Respiratory: Clear to auscultation bilaterally, Normal air movement Cardiovascular: No edema, Regular rate/rhythm, Normal S1 S2 Gastrointestinal: Normal bowel sounds, Soft and benign, No tenderness Musculoskeletal: No swelling, No erythema Integumentary: No rashes Neurological: Other (Motor 4/5 in all extremities.) Assessment And Plan - Current Problems (Diagnosis) (1) Generalized weakness Current Visit: Yes Status: Acute (2) DM type 2 (diabetes mellitus, type 2) Current Visit: Yes Status: Acute - Plan Cause of global weakness unknown. CVA suspected. Dr. De La Torre's input appreciated. Repeat CT head negative for acute stroke. MRI of the brain not available this weekend. No leukocytosis to suggest sepsis Check UA. IV hydration. Insulin sliding scale for glucose management. Continue PT. MRI of the brain tomorrow.
--- NOTE | 2019-12-07 12:52 | P.DS ---
Admission Date: 12/06/19 Discharge Date: 12/07/19 Disposition: DC HOME/HOME HEALTH CARE Discharge Condition: FAIR Reason for Admission: CVA/weakness - Problems (1) Generalized weakness Current Visit: Yes Status: Acute (2) DM type 2 (diabetes mellitus, type 2) Current Visit: Yes Status: Acute Brief History of Present Illness: 59-year-old woman with a history of diabetes mellitus type 2 and hyperlipidemia presented to the emergency department due to sudden onset of bilateral arm and leg weakness associated with episodes of nausea, paraesthesia in the face, and difficulty speaking. Stroke protocol was initiated in the ED. CT head was negative for acute CVA. Patient was given TPA and admitted for further management. Hospital Course: Patient admitted to the ICU after t-PA administration. His speech got better. She regained some strength in both upper extremity and lower extremities. Motor in all extremities are 4/5. Swallow evaluation revealed no problem with swallowing. Patient tolerated diet. She was evaluated by physical therapy. Patient managed to move without assistance during physical therapy. She was seen and evaluated by neurology-Dr. De La Torre. Repeat CT head did not show any acute CVA. Acute stroke not likely. Patient cleared for discharge by neurology. Patient ambulated with a walker today. Patient placed on aspirin and folic acid. Continue her simvastatin. She is discharged to follow with Dr. De La Torre as an outpatient.. Vital Signs/Physical Exam: Temp Pulse Resp BP Pulse Ox 98.0 F 76 22 H 109/72 98 12/07/19 12:21 12/07/19 12:21 12/07/19 12:21 12/07/19 12:21 12/07/19 12:21 General: Alert, In no apparent distress Neck: Supple Respiratory: Clear to auscultation bilaterally, Normal air movement Cardiovascular: No edema, Regular rate/rhythm, Normal S1 S2 Gastrointestinal: Normal bowel sounds, Soft and benign, No tenderness Integumentary: No rashes Neurological: Other (Nonfocal. Motor in all extremities: 4/5.) Laboratory Data at Discharge: WBC 7.4 K/uL (4.3-10.9) D 12/07/19 09:58 Hgb 13.5 g/dL (12.0-15.0) 12/07/19 09:58 Hct 39.6 % (36.0-45.0) 12/07/19 09:58 Plt Count 322 K/uL (152-406) 12/07/19 09:58 PT 11.9 SECONDS (9.5-12.5) 12/06/19 06:04 INR 1.01 12/06/19 06:04 APTT 25.5 SECONDS (24.3-36.9) 12/06/19 06:04 Sodium 140 mmol/L (136-145) 12/07/19 09:58 Potassium 3.4 mmol/L (3.5-5.1) L 12/07/19 09:58 BUN 7 mg/dL (7-18) 12/07/19 09:58 Creatinine 0.83 mg/dL (0.55-1.3) 12/07/19 09:58 Glucose 194 mg/dL (74-106) H 12/07/19 09:58 Phosphorus 2.7 mg/dL (2.5-4.9) 12/05/19 22:34 Magnesium 2.2 mg/dL (1.8-2.4) 12/06/19 06:04 Triglycerides 172 mg/dL (<150) H 12/07/19 05:13 Cholesterol 154 mg/dL (<200) 12/07/19 05:13 HDL Cholesterol 60 mg/dL (40-60) 12/07/19 05:13 Cholesterol/HDL Ratio 2.57 12/07/19 05:13 Lipase 122 U/L (73-393) 12/05/19 22:34 Home Medications: Metformin HCl 500 mg PO TID 12/06/19 Quetiapine Fumarate [Seroquel] 25 mg PO BEDTIME 12/06/19 Simvastatin 20 mg PO BEDTIME 12/06/19 Trazodone [Desyrel*] 50 mg PO BEDTIME 12/06/19 Aspirin [Aspirin EC 81 MG] 81 mg PO DAILY #30 tablet. 12/07/19 Folic Acid 1 mg PO DAILY #30 tablet 12/07/19 New Medications: Aspirin [Aspirin EC 81 MG] 81 mg PO DAILY #30 tablet. Folic Acid 1 mg PO DAILY #30 tablet Diet: ADA Activity: Fall precautions Followup: Tee De La Torre MD [ASSOCIATE-ACTIVE - CAN ADMIT] - (Within 1 month.)
[2019-12-07] MEDS ORDERED: NA CHLORIDE 0.9% 1,000 ML IV SCH (13:00)
[2019-12-07 14:00] VITALS: BP 107/74
== END 2019-12-07 15:00 | disposition home or self-care (01) | DRG 948 ==
LOC: ER 22:09 → 3RD-ICU 12-06 02:02 → ERHOLD 12-06 03:16
PROVIDERS: ADMIT Internal Medicine; ATTEND Internal Medicine
DX: R53.1 Weakness (principal); E11.9 Type 2 diabetes mellitus without complications; E78.5 Hyperlipidemia, unspecified; R11.0 Nausea; R20.0 Anesthesia of skin; R13.10 Dysphagia, unspecified; R00.0 Tachycardia, unspecified; R29.704 NIHSS score 4; Z90.49 Acquired absence of other specified parts of digestive tract; Z90.710 Acquired absence of both cervix and uterus; Z79.84 Long term (current) use of oral hypoglycemic drugs; Z79.899 Other long term (current) drug therapy; Z20.828 Contact with and (suspected) exposure to other viral communicable diseases
CPT/HCPCS: 36415; 70450; 71045; 80048; 80061; 80320; 80329; 82947; 83690; 83735; 83880; 84100; 84484; 85025; 85610; 85730; 92977; 93005; 93880; 96361; 96374; 96375; 97112; 97116; 97161; 97530; 99291; J2405; J2997; J7030; U0003

== ENCOUNTER 2020-10-20 07:01 | Day surgery (SDC) | payer OTHER ==
[2020-10-15 10:01] LABS: Absolute Lymphocytes (CBC) 2.8 K/uL (0.7-4.9); Hematocrit 42.1 % (36.0-45.0); Lymphocytes % 29.5 % (15.3-44.8); RBC Red Blood Cell Count 5.06 M/uL (3.86-4.86)
[2020-10-15 10:11] LABS: Protime INR 0.99
[2020-10-15 10:23] LABS: Potassium 4.4 mmol/L (3.5-5.1)
--- NOTE | 2020-10-15 10:32 | RAD REPORT ---
EXAM DESCRIPTION: Lukas Dubon And Subhash (2 Views)10/15/2020 10:20 am CLINICAL HISTORY: Preop for knee surgery COMPARISON: 2019 FINDINGS: Calcified lung granulomas. The lungs appear clear of acute infiltrate. The heart is normal size IMPRESSION: No acute abnormalities displayed
--- NOTE | 2020-10-15 10:48 | EKG ---
Test Date: 2020-10-15 Test Time: 08:46:31 Sky Cap: BRITTANY MEASUREMENT RESULTS: Intervals: Rate: 77 NH: 160 QRSD: 82 QT: 378 QTc: 427 [place]: P: 46 NH: 160 QRS: 9 T: -7 INTERPRETIVE STATEMENTS: Normal sinus rhythm T wave abnormality, consider inferior ischemia Abnormal ECG Compared to ECG 12/05/2019 22:25:40 T-wave abnormality now present Possible ischemia now present Sinus tachycardia no longer present Electronically Signed On 10-15-20 10:48:02 CDT by Roldan Reyes
[2020-10-20] MEDS ORDERED: NA CHLORIDE 0.9% 1,000 ML ONE (07:26)
[2020-10-20] MEDS: BUPIVACAINE 0.25% PF 30 ML VIAL ONE ×2 (08:07→09:24)
[2020-10-20] MEDS: CEFAZOLIN/SWI 1gm 1 GM/10 ML SYR ONE ×2 (08:34→08:55)
[2020-10-20] MEDS ORDERED: FENTANYL CITR 100 MCG/2 ML ONE (08:56)
[2020-10-20] MEDS ORDERED: propofoL 200 MG/20 ML VIAL IV ONE (08:56)
[2020-10-20] MEDS ORDERED: KETOROLAC 30 MG/ML INJ ONE (08:57)
[2020-10-20] MEDS ORDERED: MIDAZOLAM HCL 2 MG/2 ML INJ ONE (08:57)
[2020-10-20] MEDS ORDERED: LIDOCAINE 1% MPF 30 ML VIAL ONE (08:58)
[2020-10-20] MEDS ORDERED: DIPHENHYDRAMINE 50 MG/ML VIAL ONE (08:58)
[2020-10-20] MEDS ORDERED: ONDANSETRON 4 MG/2 ML VIAL ONE (08:58)
[2020-10-20 10:34] VITALS: O2SAT 97
--- NOTE | 2020-10-20 10:34 | P.BOP ---
Preoperative diagnosis: left knee lateral meniscus tear Postoperative diagnosis: same Primary procedure: left knee arthroscopic partial lateral meniscectomy Sales Project Administrator: NONE,NONE Estimated blood loss: 3 cc Specimen: none Findings: see dictation Anesthesia: General Complications: None Implants: none Fluids & blood products: per anesthesia record; TT: 28 mins @ 300 mmHg Transferred to: Recovery Room Condition: Good
[2020-10-20 12:03] VITALS: BP 128/79; TEMP 97.7
== END 2020-10-20 11:50 | disposition home or self-care (01) ==
LOC: OR 07:01
PROVIDERS: ATTEND Orthopaedic Surgery Sports Medicine
PROC: 0SBD4ZZ Excision of Left Knee Joint, Percutaneous Endoscopic Approach (ICD-10-PCS; principal; 2020-10-20 08:15)
DX: S83.282A Other tear of lateral meniscus, current injury, left knee, initial encounter (principal); M25.562 Pain in left knee; E11.9 Type 2 diabetes mellitus without complications; Z20.822 Contact with and (suspected) exposure to COVID-19
CPT/HCPCS: 93005; 85025; 80048; 36415; 85610; 82947 ×2; 85730; 71046; 29881; U0002; J2704; J1200; J2250; J3010; J0690; J7030; J2405

== ENCOUNTER 2020-12-11 13:55 | Emergency (ER) | payer OTHER ==
[2020-12-11 15:25] LABS: Absolute Lymphocytes (CBC) 1.7 K/uL (0.7-4.9); Basophils % 0.8 % (0-1.3); Hematocrit 43.4 % (36.0-45.0); Lymphocytes % 10.9 % (15.3-44.8); MPV 7.3 fL (7.6-11.3)
[2020-12-11 15:46] LABS: ALT/SGPT 36 U/L (12-78); AST/SGOT 10 U/L (15-37); Albumin 3.5 g/dL (3.4-5.0); Alkaline Phosphatase 112 U/L (45-117); BUN Blood Urea Nitrogen 21 mg/dL (7-18); Bicarbonate 27 mmol/L (21-32); Bilirubin Total 0.8 mg/dL (0.2-1.0); Glucose Level 146 mg/dL (74-106); Potassium 4.3 mmol/L (3.5-5.1); Protein, Total 7.7 g/dL (6.4-8.2); Sodium Level 137 mmol/L (136-145)
[2020-12-11] MEDS ORDERED: NA CHLORIDE 0.9% 1,000 ML ONE (15:59)
--- NOTE | 2020-12-11 17:13 | EDPHYS ---
Physician Documentation [facility] Name: Omayra Mancia Age: 60 yrs Sex: Female : 1960 Arrival Date: 12/11/2020 Time: 13:58 Bed 20 Private MD: ED Physician Hao Bermudez HPI: 12/11 14:46 This 60 yrs old Female presents to ER via Wheelchair with complaints of High pm1 Blood Sugar. 14:46 The patient or guardian reports hyperglycemia, that was potentially precipitated by pm1 Steroid injection while seeing orthopedics in [facility] and diagnosed chronic arthritis. Onset: The symptoms/episode began/occurred 4 day(s) ago. Associated signs and symptoms: Pertinent positives: Numbness on both sides of her face, Pertinent negatives: Chest pain, shortness of breath, and focal deficits/weakness. Current symptoms: In the emergency department the patient's symptoms are unchanged from the initial presentation. The patient has been recently seen by a physician: for apparently unrelated complaints, Muscle aches, seen by orthopedic doctor in [facility] and diagnosed with chronic arthritis, given shot of steroids. Patient noticed elevated blood sugars post steroid injection and apparently started to worry about her blood sugar levels. Patient additionally dealing with grief regarding of . Patient also reporting numbness to both sides of her face for the past 3 days. Historical: - Allergies: 14:02 No Known Allergies; hb - Immunization history:: Client reports receiving the 2nd dose of the Covid vaccine, Flu vaccine is up to date. - Social history:: Smoking status: Patient denies any tobacco usage or history of. ROS: 14:46 Constitutional: Negative for fever, chills, and weight loss, Cardiovascular: Negative pm1 for chest pain, palpitations, and edema, Respiratory: Negative for shortness of breath, cough, wheezing, and pleuritic chest pain, Abdomen/GI: Negative for abdominal pain, nausea, vomiting, diarrhea, and constipation, MS/Extremity: Negative for injury and deformity, Skin: Negative for injury, rash, and discoloration. 14:46 Neuro: Positive for numbness, of the whole face. 14:46 All other systems are negative. Exam: 14:46 Constitutional: This is a well developed, well nourished patient who is awake, alert, pm1 and in no acute distress. Head/Face: Normocephalic, atraumatic. 14:46 Skin: Warm, dry with normal turgor. Normal color with no rashes, no lesions, and no evidence of cellulitis. 14:46 Cardiovascular: Exam negative for acute changes, Rate: normal, Rhythm: regular, Pulses: no pulse deficits are appreciated. 14:46 Respiratory: Exam negative for acute changes, respiratory distress, shortness of breath. 14:46 Abdomen/GI: Exam negative for acute changes, Inspection: abdomen appears normal, Palpation: abdomen is soft and non-tender, in all quadrants. 14:46 Musculoskeletal/extremity: Exam is negative for acute changes, ROM: intact in all extremities. 14:46 Neuro: Exam negative for acute changes, Orientation: is normal, Mentation: is normal, Cranial nerves: CN II- XII are normal as tested, Motor: moves all fours, strength is 5/5 in all extremities, Gait: is steady, at a normal pace, without difficulty. Vital Signs: 14:00 BP 174 / 108; Pulse 98; Resp 16; Temp 97.9; Pulse Ox 98% on R/A; Weight 81.65 kg; hb Height 5 ft. 4 in. (162.56 cm); Pain 0/10; 14:34 BP 174 / 108; Pulse 98; Resp 16; Temp 97.9; Pulse Ox 98% on R/A; kh1 14:00 Body Mass Index 30.90 (81.65 kg, 162.56 cm) hb Garett Coma Score: 14:34 Eye Response: spontaneous(4). Verbal Response: oriented(5). Motor Response: obeys kh1 commands(6). Total: 15. MDM: 14:20 Patient medically screened. pm1 16:40 Data reviewed: vital signs. Data interpreted: Pulse oximetry: on room air is 98 %. pm1 Interpretation: normal. 16:40 Counseling: I had a detailed discussion with the patient and/or guardian regarding: the pm1 historical points, exam findings, and any diagnostic results supporting the discharge/admit diagnosis, lab results, the need for outpatient follow up, to return to the emergency department if symptoms worsen or persist or if there are any questions or concerns that arise at home. 16:40 ED course: Patient's white count elevated due to steroid injection. Patient without any pm1 complaints or symptoms indicative of infection. 12/11 14:43 Order name: CBC with Diff pm1 12/11 14:43 Order name: CMP pm1 12/11 14:43 Order name: IV Saline Lock; Complete Time: 15:17 pm1 12/11 14:44 Order name: CBC with Automated Diff; Complete Time: 15:53 EDMS 12/11 14:44 Order name: Comprehensive Metabolic Panel; Complete Time: 15:53 EDMS 12/11 14:43 Order name: Urine Dipstick-Ancillary (obtain specimen) pm1 Administered Medications: 16:08 Drug: NS 0.9% 1000 ml Route: IV; Rate: 1000 ml; Site: left wrist; kh1 Disposition Summary: 12/11/20 17:12 Discharge Ordered Location: Home pm1 Problem: new pm1 Symptoms: have improved pm1 Condition: Stable pm1 Diagnosis - Hyperglycemia, unspecified pm1 - Acute stress reaction pm1 Followup: pm1 - With: Emergency Department - When: As needed - Reason: Worsening of condition Followup: pm1 - With: Private Physician - When: 2 - 3 days - Reason: Recheck today's complaints, Continuance of care, Re-evaluation by your physician Discharge Instructions: - Discharge Summary Sheet pm1 - Hyperglycemia pm1 - Blood Glucose Monitoring, Adult pm1 - Diabetes Mellitus and Exercise pm1 - Diabetes Mellitus and Nutrition, Adult pm1 - Stress, Adult pm1 Forms: - Medication Reconciliation Form pm1 - Thank You Letter pm1 - Antibiotic Education pm1 - Prescription Opioid Use pm1 Addendum: 12/16/2020 03:05 Co-signature as Attending Physician, Hao Bermudez MD PA/PRODUCT DEVELOPMENT INTERN's history reviewed, m a2 patient interviewed, and examined. I agree with assessment and care plan and confirm the diagnosis (es) above. Signatures: Dispatcher [employer] EDMS Tyler England NP PRODUCT DEVELOPMENT INTERN pm1 Erica Sepulveda RN RN hb Alzahri, Mohammad, MD MD ca2 Serena Landaverde [facility]
--- NOTE | 2020-12-11 17:13 | ER ---
Nurse's Notes [facility] Name: Omayra Mancia Age: 60 yrs Sex: Female : 1960 Arrival Date: 12/11/2020 Time: 13:58 Bed 20 Private MD: Diagnosis: Hyperglycemia, unspecified;Acute stress reaction Presentation: 12/11 14:00 Chief complaint: Home BGL 200s, malaise, body aches, and generalized weakness x 5 days. hb Coronavirus screen: At this time, the client does not indicate any symptoms associated with coronavirus-19. Ebola Screen: No symptoms or risks identified at this time. Initial Sepsis Screen: Does the patient meet any 2 criteria? No. Patient's initial sepsis screen is negative. Does the patient have a suspected source of infection? No. Patient's initial sepsis screen is negative. Risk Assessment: Do you want to hurt yourself or someone else? Patient reports no desire to harm self or others. Onset of symptoms was December 07, 2020. 14:00 Method Of Arrival: Wheelchair hb 14:00 Acuity: FATMATA 3 hb Historical: - Allergies: 14:02 No Known Allergies; hb - Immunization history:: Client reports receiving the 2nd dose of the Covid vaccine, Flu vaccine is up to date. - Social history:: Smoking status: Patient denies any tobacco usage or history of. Screenin:33 Abuse screen: Denies threats or abuse. Nutritional screening: No deficits noted. kh1 Tuberculosis screening: No symptoms or risk factors identified. Never had TB. Possible symptoms: None Risk factors: None. Fall Risk None identified. No fall in past 12 months (0 pts). No secondary diagnosis (0 pts). IV access (20 points). Ambulatory Aid- None/Bed Rest/Nurse Assist (0 pts). Gait- Normal/Bed Rest/Wheelchair (0 pts) Mental Status- Oriented to own ability (0 pts). Exposure risk/Travel Screening: Recent exposure to [place] been [place] the country[place]. Assessment: 14:33 General: Appears in no apparent distress. uncomfortable, Behavior is crying. Pain: kh1 Denies pain. Neuro: No deficits noted. Level of Consciousness is awake, Oriented to person, place, time, situation, Supplier Relationship Director are equal bilaterally Moves all extremities. Gait is steady, Speech is normal, Facial symmetry appears normal. 15:30 Reassessment: Patient appears in no apparent distress at this time. No changes from 1 previously documented assessment. Patient and/or family updated on plan of care and expected duration. Pain level reassessed. Patient is alert, oriented x 3, equal unlabored respirations, skin warm/dry/pink. 16:38 Reassessment: Patient appears in no apparent distress at this time. No changes from 1 previously documented assessment. Patient and/or family updated on plan of care and expected duration. Pain level reassessed. Patient is alert, oriented x 3, equal unlabored respirations, skin warm/dry/pink. Patient states feeling better. Vital Signs: 14:00 BP 174 / 108; Pulse 98; Resp 16; Temp 97.9; Pulse Ox 98% on R/A; Weight 81.65 kg; hb Height 5 ft. 4 in. (162.56 cm); Pain 0/10; 14:34 BP 174 / 108; Pulse 98; Resp 16; Temp 97.9; Pulse Ox 98% on R/A; kh1 14:00 Body Mass Index 30.90 (81.65 kg, 162.56 cm) hb Garett Coma Score: 14:34 Eye Response: spontaneous(4). Verbal Response: oriented(5). Motor Response: obeys kh1 commands(6). Total: 15. ED Course: 13:58 Patient arrived in ED. as 14:01 Triage completed. hb 14:02 Tyler England NP is PHCP. pm1 14:02 Hao Bermudez MD is Attending Physician. pm1 14:02 Arm band placed on. hb 14:33 Serena Landaverde is Primary Nurse. kh1 15:17 Inserted saline lock: 20 gauge in left antecubital area, using aseptic technique. Blood dh4 collected. 15:27 CBC with Automated Diff Sent. kh1 15:27 Comprehensive Metabolic Panel Sent. kh1 15:27 CMP Sent. kh1 15:27 CBC with Diff Sent. kh1 Administered Medications: 16:08 Drug: NS 0.9% 1000 ml Route: IV; Rate: 1000 ml; Site: left wrist; [facility] Outcome: 17:12 Discharge ordered by . pm1 18:24 Patient left the ED. [facility] Signatures: Filomena Jefferson Patrick, NP BENZENE STILL UTILITY OPERATOR pm1 Erica Sepulveda, RN RN hb Dominic Lemons 4 Serena Landaverde [facility]
[2020-12-11 18:33] VITALS: BP 174/108; TEMP 97.9; O2SAT 98
== END 2020-12-11 18:24 | disposition home or self-care (01) ==
LOC: ER 13:55
DX: F43.0 Acute stress reaction (principal)
CPT/HCPCS: 85025; 36415; 80053; 99283; J7030

== ENCOUNTER 2023-08-09 12:02 | Emergency (ER) | payer OTHER ==
--- OUTSIDE RECORDS SUMMARY | 2023-08-09 12:06 | XMS REPORT | Continuity of Care Document ---
Author Name Unknown Address [address] [facility] [address]. [address] [place] [address] [facility] thconnect Address [address] [facility]. [address] [place] [address] Care Team Providers Care Human Resources Safety Manager Name Role Phone Jewels Tran Primary Care Physician SILAS HANDLEY Attending Clinician Unavailable AARON ZUNIGA Attending Clinician Unavailab ANA Velazquez Attending Clinician Unavailab le LAB45 Attending Clinician Unavailable MARJORIE FLORES Attending Clinician Unavailable AINSLEY ABERNATHY Attending Clinician Unavailable LAB90 Attending Clinician Unavailable EBONY DO Attending Clinician Unavailable JEFFREY GOLDEN Attending Clinician Unavail able [facility] Attending Clinicia n Unavailable KAYLA ALBERTS Attending Clinician Unavailable MILAGRO MORRIS Attending Clinician Unavailab tabatha MATIAS MD Attending Clinician Unavailab RIK Dave Attending Clinician Unavaila REX Patel Attending Clinician Unavailable HUGH FAM Attending Clinician Unavailable TOMOGRAPHY, CK OPTICAL COHERENCE Attending Clini viktoriya Unavailable Will Payan Attending Clinician Unavail able GREGORIO_SWHAWPRHailey_[place] Attending Clinician Unavailab Charline Vance MD Attending Clinician Sarita Fu MA Attending Clinician Unavaila Will Cannon Admitting Clinician Unavail able UNDEFINED Admitting Clinician Unavailable GREGORIO_SWCARLOS_[place] Admitting Clinician Unavailab le Payers Payer Name Policy Type Policy Number Effective Date Expirati on Date Source [facility] MEDINA DUQUE-C COPAY FOCUS 9 [id number] 2023 00:00:00 [employer] MP [facility] 3: [facility] 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 ON 9 [id number] 2022 00:00:00 [facility]) [id number] 2021 00:00:00 Problems Condition Name Condition Details Condition Category Status Onset Date Resolution Date Last Treatment Date Treating Clinician Comments Source URI (upper respirator y infection) URI (upper respirator y infection) Disease Active 05-15 00:00: 00 Nita Pratt - Externa l Pulmonary nodule Pulmonary nodule Disease Active 05-15 00:00: 00 Nita Pratt - Externa l Left lower quadrant abdominal pain Left lower quadrant abdominal pain Disease Active 207 00:00: 00 Nita Pratt - Externa l Acute pain of right shoulder Acute pain of right shoulder Disease Active 2022-03 0-10 00:00: 00 Nita Pratt - Externa l Statin intoleranc e Statin intoleranc e Disease Active 08-31 00:00: 00 Nita Guptaold - Externa l 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 (multi HCC) 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 (multi HCC) Disease Active 06-01 00:00: 00 Nita Pratt - Externa l Diabetes mellitus type 2 without retinopath y Diabetes mellitus type 2 without retinopath y Disease Active 06-01 00:00: 00 Nita Pratt - Externa l Arthralgia of both lower legs Arthralgia of both lower legs Disease Active 05-31 00:00: 00 Nita Pratt - Externa l Screen for colon cancer Screen for colon cancer Disease Active 05-31 00:00: 00 Nita Pratt - Externa l History of colon polyps History of colon polyps Disease Active 05-31 00:00: 00 Nita Seybold - Externa l Arthralgia of both lower legs Arthralgia of both lower legs Disease Active 05-31 00:00: 00 Nita Seybold - Externa l Urinary incontinen ce Urinary incontinen ce Disease Active 05-31 00:00: 00 Nita Seybold - Externa l DM type 2 with diabetic mixed hyperlipid emia (multi HCC) DM type 2 with diabetic mixed hyperlipid emia (multi HCC) Disease Active 05-15 00:00: 00 Niat Seybold - Externa l PVD (periphera l vascular disease) PVD (periphera l vascular disease) Disease Active 05-15 00:00: 00 Nita Seybold - Externa l Primary insomnia Primary insomnia Disease Active 05-15 00:00: 00 Nita Seybold - Externa l History of depression History of depression Disease Active 05-15 00:00: 00 Nita Seybold - Externa l Chronic bilateral low back pain without sciatica Chronic bilateral low back pain without sciatica Disease Active 05-15 00:00: 00 Nita Seybold - Externa l Pain in both hands Pain in both hands Disease Active 05-15 00:00: 00 Nita Seybold - Externa l History of cardioembo lic cerebrovas cular accident (CVA) History of cardioembo lic cerebrovas cular accident (CVA) Disease Active - 00:00: 00 Nita Ortegaybold - Externa l Allergies, Adverse Reactions, Alerts Allergy Name Allergy Type Status Severity Reaction(s) Onset Date Inactive Date Treating Clinician Comments Source Codeine Propensi ty to adverse reaction s Active Nausea and Vomiting 05-02 00:00: 00 Nita Seybold - Externa l Tramadol Propensi ty to adverse reaction s Active Nausea and Vomiting 05-02 00:00: 00 Nita Ortegaybold - Externa l No Known Allergie s DA Active U 8 00:00: [address] [facility] Social [facility] Social Habit Start Date Stop Date Quantity Comments Source Exposure to SARS-CoV-2 (event) Not sure [facility] Gender identity Naomi Pratt - External Sexual orientation Teagan guzman Terence - External Alcoholic beverage intake 2023-07-23 00:00:00 2023-07-23 00:00:00 Lifetime non-drinker (finding) Nita Pratt - External Alcohol intake 2023-05-16 00:00:00 2023-05-16 00:00:00 Lifetime non-drinker (finding) Nita Pratt - External History of Social function 2022-11-27 00:00:00 2022-11-27 00:00:00 Nita Pratt - External Education - What is the highest level of school you have completed or the highest degree you have received? 2022-05-31 00:00:00 2022-05-31 00:00:00 Associate degree: academic program Nita Pratt - External Tobacco use and exposure 2022-05-15 00:00:00 2022-05-15 00:00:00 Smokeless tobacco non-user Nita Pratt - External Sex assigned at 1960 00:00:00 1960 00:00:00 Nita Pratt - External Smoking Status Start Date Stop Date Source Never smoked tobacco Nita Pratt - External Medications Ordered Medication Name Filled Medication Name Start Date Stop Date Current Medication? Ordering Clinician Indication Dosage Frequency Signature (SIG) Comments Components Source Cholecalcif milton (D3) 50 MCG (1999) oral Tablet 07-12 13:34: 21 Yes 1999{tb l} Take 2,000 tablets by mouth daily 2 tabs. Nita tilley Zinc 50 MG oral Tablet 06-26 10:37: 04 Yes 1{tbl} Take 1 tablet by mouth daily Nita tilley Duloxetine HCl [address] Particles 06-26 00:00: 00 Yes [id number] 60mg Take 1 capsule (60 mg total) by mouth daily. Nita Jensena jarek Zinc 50 MG oral Tablet 05-15 16:08: 36 Yes 1{tbl} Take 1 tablet by mouth daily Nita tilley Duloxetine HCl [address] Particles 05-15 00:00: 00 Yes [id number] 30mg Take 1 capsule (30 mg total) by mouth daily. Nita tilley Azithromyci n 250 MG oral Tablet 05-15 00:00: 00 05-21 04:59 :00 Yes [id number] Take 2 tablets by mouth on day 1 then 1 tablet by mouth daily for 4 days thereafter .. Nita tilley Zinc 50 MG oral Tablet 05-02 10:28: 39 Yes 1{tbl} Take 1 tablet by mouth daily Nita tilley Duloxetine HCl [address] Particles 05-02 00:00: 00 Yes [id number] 20mg Take 1 capsule (20 mg total) by mouth daily. Nita tilley Naproxen 500 MG oral Tablet 05-02 00:00: 00 Yes [id number] 500mg Q.5D Take 1 tablet (500 mg total) by mouth 2 times daily as needed (Pain). Nita tilley Zinc 50 MG oral Tablet 04-18 11:08: 52 Yes 1{tbl} Take 1 tablet by mouth daily Nita tilley EQL Natural Zinc 50 MG oral Tablet 04-18 11:07: 49 04-18 00:00 :00 No [id number] 1{tbl} Take 1 tablet by mouth daily Nita tilley PAXLOVID STANDARD (30) (300/100) Therapy Pack 04-13 00:00: 00 04-18 00:00 :00 No [id number] Take two 150 mg nirmatrelv ir (pink) tablets with one 100 mg ritonavir (white) tablet by mouth two times daily for 5 days. Nita tilley Benzonatate (Tessalon Perles) 100 MG oral Capsule 04-12 00:00: 00 05-15 00:00 :00 No [id number] 100mg Q.[id number] 3D Take 1 capsule (100 mg total) by mouth 3 times daily as needed for cough. Nita tilley Diclofenac Sodium 75 MG oral Tablet Delayed Response 03-20 00:00: 00 Yes [id number] 75mg Q.5D Take 1 tablet (75 mg total) by mouth 2 times daily as needed (pain). Nita tilley Glucose Blood (Accu-Chek Noris Plus) in vitro Strip 2022-03 00:00: 00 Yes Check BS twice daily. Nita tilley Bacillus Coagulans-I nulin (Align Prebiotic-P robiotic) 5-1.25 MG-GM oral Chewable Tablet 2022-03 10:01: 06 02-20 00:00 :00 No 1{tbl} Take 1 tablet by mouth daily Nita tilley Aspirin 81 MG oral Tablet Delayed Response 2022-03 10:01: 03 02-20 00:00 :00 No 81mg Take 1 tablet (81 mg total) by mouth daily. Nita tilley EQL Natural Zinc 50 MG oral Tablet 2022-03 10:00: 28 Yes [id number] 1{tbl} Take 1 tablet by mouth daily Nita tilley Azithromyci n 250 MG oral Tablet 2022-03 00:00: 00 Yes [id number] Take 2 tablets by mouth on day 1 then 1 tablet by mouth daily for 4 days thereafter .. Nita tilley Methylpredn isolone Acetate (Depo-Medro l) 40 mg/ml - Physician Administere d ([id number]) 2022-03 20:30: 00 02-05 22:43 :00 No [id number] 40mg Nita tilley Methylpredn isolone Acetate (Depo-Medro l) 40 mg/ml - Physician Administere d ([id number]) 2022-03 20:30: 00 02-05 22:42 :00 No [id number] 20mg Nita tilley EQL Natural Zinc 50 MG oral Tablet 2022-03 13:43: 56 Yes [id number] 1{tbl} Take 1 tablet by mouth daily Nita tilley Bacillus Coagulans-I nulin (Align Prebiotic-P robiotic) 5-1.25 MG-GM oral Chewable Tablet 2022-03 13:43: 56 Yes 1{tbl} Take 1 tablet by mouth daily Nita tilley Aspirin 81 MG oral Tablet Delayed Response 2022-03 13:43: 56 Yes 81mg Take 1 tablet (81 mg total) by mouth daily. Nita tilley EQL Natural Zinc 50 MG oral Tablet 2022-03 13:26: 54 Yes [id number] 1{tbl} Take 1 tablet by mouth daily Nita tilley Bacillus Coagulpricila-I nulin (Align Prebiotic-P robiotic) 5-1.25 MG-GM oral Chewable Tablet 2022-03 13:26: 54 Yes 1{tbl} Take 1 tablet by mouth daily Nita tilley Aspirin 81 MG oral Tablet Delayed Response 2022-03 13:26: 54 Yes 81mg Take 1 tablet (81 mg total) by mouth daily. Nita tilley Diclofenac Sodium 75 MG oral Tablet Delayed Response 2022-03 00:00: 00 Yes [id number] 75mg Q.5D Take 1 tablet (75 mg total) by mouth 2 times daily as needed (pain). Nita tilley Metformin HCl 500 MG oral Tablet 2022-03 00:00: 00 Yes [id number] 3 500mg Take 1 tablet (500 mg total) by mouth 3 times daily (with meals). Nita tilley EQL Natural Zinc 50 MG oral Tablet 2022-03 11:17: 10 Yes [id number] 1{tbl} Take 1 tablet by mouth daily Nita tilley Bacillus Coagulans-I nulin (Align Prebiotic-P robiotic) 5-1.25 MG-GM oral Chewable Tablet 2022-03 11:17: 10 Yes 1{tbl} Take 1 tablet by mouth daily Nita tilley Aspirin 81 MG oral Tablet Delayed Response 2022-03 11:17: 10 Yes 81mg Take 1 tablet (81 mg total) by mouth daily. Nita tilley Fluocinolon e Acetonide (DermOtic) 0.01 % otic Oil 2022-03 00:00: 00 Yes 3 drops each ear once weekly. Nita tilley Na Sulfate-K Sulfate-Mg Sulf (SUPREP BOWEL PREP KIT) 17.5-3.13-1 .6 GM/177ML oral Solution 2022-03 00:00: 00 02-20 00:00 :00 No [id number] Instructio ns provided to patient. Follow instructio ns provided by provider.. Nita tilley Aspirin 81 MG oral Tablet Delayed Response 2022-03 09:18: 16 Yes 81mg Take 1 tablet (81 mg total) by mouth daily. Nita tilley Vibegron (Gemtesa) 75 MG oral Tablet 2022-03 09:09: 43 12-19 00:00 :00 No 1{tbl} Take 1 tablet by mouth daily Nita tilley EQL Natural Zinc 50 MG oral Tablet 2022-03 09:02: 54 Yes [id number] 1{tbl} Take 1 tablet by mouth daily Nita tilley Bacillus Coagulans-I nulin (Align Prebiotic-P robiotic) 5-1.25 MG-GM oral Chewable Tablet 2022-03 09:02: 54 Yes 1{tbl} Take 1 tablet by mouth daily Nita tilley Potassium 99 MG oral Tablet 2022-03 00:00: 00 Yes 1{tbl} QD Take 1 tablet by mouth daily as needed. Nita tilley Meloxicam 15 MG oral Tablet 11-01 00:00: 00 01-16 00:00 :00 No [id number] 15mg QD Take 1 tablet (15 mg total) by mouth daily as needed for pain. Nita tilley Glucose Blood in vitro Strip 10-16 00:00: 00 Yes 100{eac h} 100 each by other route daily Use to check FSBS twice daily and as needed. Nita Ortegakimberleeeli tilley Tizanidine HCl 2 MG oral Tablet 09-19 00:00: 00 12-19 00:00 :00 No [id number] TAKE 1 TABLET BY MOUTH NIGHTLY NEEDED FOR MUSCLE SPASMS. Nita Ortegakimberleeeli tilley EQL Natural Zinc 50 MG oral Tablet 09-18 10:32: 09 Yes [id number] 1{tbl} Take 1 tablet by mouth daily Nita Ortegaleslie Murphy Consuelo jarek Vibegron (Gemtesa) 75 MG oral Tablet 09-18 10:32: 09 Yes 1{tbl} Take 1 tablet by mouth daily Nita Terence tilley Bacillus Coagulans-I nulin (Align Prebiotic-P robiotic) 5-1.25 MG-GM oral Chewable Tablet 09-18 10:32: 09 Yes 1{tbl} Take 1 tablet by mouth daily Nita Terence Jensenanthony jarek Tizanidine HCl 2 MG oral Tablet 09-18 00:00: 00 Yes [id number] 2mg QD Take 1 tablet (2 mg total) by mouth nightly as needed for muscle spasms Nita Terence Jensenanthony jarek EQL Natural Zinc 50 MG oral Tablet 09-06 14:07: 53 Yes [id number] 1{tbl} Take 1 tablet by mouth daily Nita Terence Jensenanthony jarek Vibegron (Gemtesa) 75 MG oral Tablet 09-06 14:07: 53 Yes 1{tbl} Take 1 tablet by mouth daily Nita Jensenanthony jarek Bacillus Coagulans-I nulin (Align Prebiotic-P robiotic) 5-1.25 MG-GM oral Chewable Tablet 09-06 14:07: 53 Yes 1{tbl} Take 1 tablet by mouth daily Nita tilley Bacillus Coagulans-I nulin (Align Prebiotic-P robiotic) 5-1.25 MG-GM oral Chewable Tablet 08-31 09:57: 07 Yes 1{tbl} Take 1 tablet by mouth daily Nita tilley MAGNESIUM OR 08-31 09:53: 10 08-31 00:00 :00 No Take by mouth Nita tilley Multiple Vitamins-Mi nerals (ICAPS AREDS 2 OR) 08-31 09:52: 48 08-31 00:00 :00 No Take by mouth Nita tilley POTASSIUM OR 08-31 09:51: 58 08-31 00:00 :00 No Take by mouth Nita tilley Trazodone HCl 50 MG oral Tablet 08-31 09:50: 40 08-31 00:00 :00 No [id number] 50mg Take 1 tablet (50 mg total) by mouth nightly Nita tilley VITAMIN E OR 08-31 09:49: 20 08-31 00:00 :00 No Take by mouth Nita tilley Zinc 50 MG oral Tablet 08-31 09:48: 50 Yes 1{tbl} Take 1 tablet by mouth daily Nita tilley Zinc 50 MG oral Tablet 08-31 09:38: 44 Yes [id number] 1{tbl} Take 1 tablet by mouth daily Nita Jensena jarek Vibegron (Gemtesa) 75 MG oral Tablet 08-31 09:38: 44 Yes 1{tbl} Take 1 tablet by mouth daily Nita tilley Potassium 99 MG oral Tablet 08-31 00:00: 00 Yes [id number] 1{tbl} Take 1 tablet by mouth daily Nita tilley Magnesium 250 MG oral Tablet 08-31 00:00: 00 Yes [id number] 1{tbl} QD Take 1 tablet by mouth daily as needed Nita tilley Metformin HCl 500 MG oral Tablet 08-31 00:00: 00 Yes [id number] 3 500mg Take 1 tablet (500 mg total) by mouth in the morning and 1 tablet (500 mg total) in the evening. Take with meals. Nita tilley Vitamin E 100 units oral Tablet 08-31 00:00: 00 Yes [id number] 1{tbl} Take 1 tablet by mouth daily Nita tilley Turmeric-Gi nger 150-25 MG oral Chewable Tablet 08-31 00:00: 00 Yes [id number] 1{tbl} Take 1 tablet by mouth daily Nita tilley Magnesium 250 MG oral Tablet 08-31 00:00: 00 Yes [id number] 1{tbl} QD Take 1 tablet by mouth daily as needed Nita tilley Multiple Vitamins-Mi nerals (Systane ICaps AREDS2) oral Capsule 08-31 00:00: 00 02-20 00:00 :00 No [id number] 1{capsu le} Take 1 capsule by mouth 2 times daily Nita tilley Trazodone HCl 50 MG oral Tablet 08-31 00:00: 00 12-19 00:00 :00 No [id number] 50mg QD Take 1 tablet (50 mg total) by mouth nightly as needed for sleep Nita tilley Potassium 99 MG oral Tablet 08-31 00:00: 00 12-19 00:00 :00 No [id number] 1{tbl} Take 1 tablet by mouth daily Nita tilley Trazodone HCl 50 MG oral Tablet 08-18 10:30: 57 Yes [id number] 50mg Take 1 tablet (50 mg total) by mouth nightly Nita tilley EQL Natural Zinc 50 MG oral Tablet 08-18 10:30: 57 Yes [id number] 1{tbl} Take 1 tablet by mouth daily Nita tilley Vibegron (Gemtesa) 75 MG oral Tablet 08-18 10:30: 57 Yes 1{tbl} Take 1 tablet by mouth daily Nita tilley Multiple Vitamins-Mi nerals (ICAPS AREDS 2 OR) 08-18 10:30: 57 Yes Take by mouth Nita tilley Na Sulfate-K Sulfate-Mg Sulf (SUPREP BOWEL PREP KIT) 17.5-3.13-1 .6 GM/177ML oral Solution 08-18 00:00: 00 Yes [id number] Instructio ns provided to patient. Follow instructio ns provided by provider. Nita tilley TURMERIC-GI NGER OR 08-16 00:00: 00 Yes Nita tilley Atorvastati n Calcium 10 MG oral Tablet 08-10 00:00: 00 08-31 00:00 :00 No Nita tilley Triamcinolo ne Acetonide (KENALOG) 40 mg/mL 08-03 13:30: 00 08-03 13:38 :00 No [id number] 40mg Nita tilley Trazodone HCl 50 MG oral Tablet 08-03 08:08: 04 Yes [id number] 50mg Take 1 tablet (50 mg total) by mouth nightly Nita tilley EQL Natural Zinc 50 MG oral Tablet 08-03 08:08: 04 Yes [id number] 1{tbl} Take 1 tablet by mouth daily Nita tilley Vibegron (Gemtesa) 75 MG oral Tablet 08-03 08:08: 04 Yes 1{tbl} Take 1 tablet by mouth daily Nita tilley Multiple Vitamins-Mi nerals (ICAPS AREDS 2 OR) 08-03 08:08: 04 Yes Take by mouth Nita tilley Pseudoeph-B romphen-DM 30-2-10 MG/5ML oral Syrup 08-03 00:00: 00 Yes [id number] 10mL Q.25D Take 10 mL by mouth 4 times daily as needed Nita tilley methylPREDN ISolone 4 MG oral Tablet Therapy Pack 08-03 00:00: 00 Yes [id number] 1{anusha} Take 1 anusha by mouth See Admin Instructio ns Use as directed Nita tilley Benzonatate (Tessalon Perles) 100 MG oral Capsule 08-03 00:00: 00 08-31 00:00 :00 No [id number] 100mg Q.[id number] 3D Take 1 capsule (100 mg total) by mouth 3 times daily as needed for cough Nita tilley Azithromyci n 500 MG oral Tablet 08-03 00:00: 00 08-31 00:00 :00 No [id number] 500mg Take 1 tablet (500 mg total) by mouth daily Nita tilley methylPREDN ISolone 4 MG oral Tablet Therapy Pack 08-03 00:00: 00 08-31 00:00 :00 No [id number] 1{anusha} Take 1 anusha by mouth See Admin Instructio ns Use as directed Nita tilley Metformin HCl 500 MG oral Tablet 07-18 00:00: 00 08-31 00:00 :00 No 500mg Take 1 tablet (500 mg total) by mouth 3 times daily (with meals) Nita tilley Duloxetine HCl [address] Particles 07-12 00:00: 00 12-19 00:00 :00 No [id number] 20mg Take 1 capsule (20 mg total) by mouth daily Nita tilley Multiple Vitamins-Mi nerals (ICAPS AREDS 2 OR) 06-19 11:36: 57 Yes Take by mouth Nita tilley Trazodone HCl 50 MG oral Tablet 06-19 11:21: 19 Yes [id number] 50mg Take 1 tablet (50 mg total) by mouth as needed for sleep. Nita tilley EQL Natural Zinc 50 MG oral Tablet 06-19 11:21: 19 Yes [id number] 1{tbl} Take 1 tablet by mouth daily Nita tilley Vibegron (Gemtesa) 75 MG oral Tablet 06-19 11:21: 19 Yes 1{tbl} Take 1 tablet by mouth daily Nita Seybold - Externa l Duloxetine HCl (Cymbalta) [address] Particles 06-19 00:00: 00 Yes [id number] 20mg Take 1 capsule (20 mg total) by mouth daily Nita Pratt - Externa l Vibegron (Gemtesa) 75 MG oral Tablet 06-01 14:15: 34 Yes 1{tbl} Take 1 tablet by mouth daily Nita Pratt - Externa l Trazodone HCl 50 MG oral Tablet 06-01 14:15: 34 Yes [id number] 50mg Take 50 mg by mouth nightly Nita Pratt - Externa l EQL Natural Zinc 50 MG oral Tablet 06-01 14:15: 34 Yes [id number] 1{tbl} Take 1 tablet by mouth daily Nita Pratt - Externa l Atorvastati n Calcium 10 MG oral Tablet 05-31 09:40: 36 05-31 00:00 :00 No [id number] 3 10mg Take 10 mg by mouth daily Nita Pratt - Externa l Trazodone HCl 50 MG oral Tablet 05-31 09:23: 50 Yes [id number] 50mg Take 50 mg by mouth nightly Nita Pratt - Externa l EQL Natural Zinc 50 MG oral Tablet 05-31 09:23: 50 Yes [id number] 1{tbl} Take 1 tablet by mouth daily Nita Pratt - Externa l Vibegron (Gemtesa) 75 MG oral Tablet 05-31 09:23: 50 Yes 1{tbl} Take 1 tablet by mouth daily Nita Pratt - Externa l EQL Natural Zinc 50 MG oral Tablet 05-15 10:04: 23 Yes [id number] 1{tbl} Take 1 tablet by mouth daily Nita Pratt - Externa l Trazodone HCl 50 MG oral Tablet 05-15 10:03: 01 Yes [id number] 50mg Take 50 mg by mouth nightly Nita Pratt - Externa l Atorvastati n Calcium 10 MG oral Tablet 05-15 10:03: 01 Yes [id number] 3 10mg Take 10 mg by mouth daily Nita tilley Meloxicam 15 MG oral Tablet 06 00:00: 00 08-31 00:00 :00 No [id number] 15mg QD Take 1 tablet (15 mg total) by mouth daily as needed for pain Nita Terence tilley Metformin HCl 500 MG oral Tablet 2021-03 00:00: 00 Yes 500mg Take 1 tablet (500 mg total) by mouth 3 times daily (with meals) Nita tilley Metformin HCl 500 MG oral Tablet 2021-03 00:00: 00 Yes 1{tbl} Take 1 tablet by mouth 3 times daily (with meals) Nita tilley Deflazacort 30 MG tablet 07-08 13:46: 50 Yes Take by mouth if needed. [facility] metFORMIN (Glucophage ) 500 MG tablet 03-17 00:00: 00 Yes TAKE 1 TABLET BY MOUTH THREE TIMES A DAY WITH A MEAL 90 [facility] Calcium Carb-Cholec alciferol (Calcium+D3 ) 600-800 MG-UNIT tablet 11-29 00:00: 00 Yes [facility] Cholecalcif milton (Vitamin D3) 25 MCG tablet 11-29 00:00: 00 Yes [facility] Immunizations Ordered Immunization Name Filled Immunization Name Date Status Comments Source Pneumococcal Vaccine, Polysaccharide 2022-05-31 00:00:00 Fiona Murphy External Tdap- (Boostrix, Adacel) 2022-05-31 00:00:00 Fiona Murphy External Pneumococcal Vaccine, Polysaccharide 2022-05-31 00:00:00 Completed Nita Pratt - External Tdap- (Boostrix, Adacel) 2022-05-31 00:00:00 Completed Nita Pratt - External Pneumococcal Vaccine, Polysaccharide 2022-05-31 00:00:00 Completed Nita Murphy External Tdap- (Boostrix, Adacel) 2022-05-31 00:00:00 Completed Nita Pratt - External Pneumococcal Vaccine, Polysaccharide 2022-05-31 00:00:00 Completed Nita Pratt - External Tdap- (Boostrix, Adacel) 2022-05-31 00:00:00 Completed Nita Seybold - External Pneumococcal Vaccine, Polysaccharide 2022-05-31 00:00:00 Completed Nita Seybold - External Tdap- (Boostrix, Adacel) 2022-05-31 00:00:00 Completed Nita Seybold - External Pneumococcal Vaccine, Polysaccharide 2022-05-31 00:00:00 Completed Nita Seybold - External Tdap- (Boostrix, Adacel) 2022-05-31 00:00:00 Completed Nita Seybold - External Pneumococcal Vaccine, Polysaccharide 2022-05-31 00:00:00 Completed Nita Seybold - External Tdap- (Boostrix, Adacel) 2022-05-31 00:00:00 Completed Nita Seybold - External Pneumococcal Vaccine, Polysaccharide 2022-05-31 00:00:00 Completed Nita Seybold - External Tdap- (Boostrix, Adacel) 2022-05-31 00:00:00 Completed Nita Guptaold - External Influenza, Injectable, Mdck, Preservative Free, Quadrivalt 2022-03-02 00:00:00 Completed Nita Seybold - External Influenza, Injectable, Mdck, Preservative Free, Quadrivalt 2022-03-02 00:00:00 Completed Nita Seybold - External Influenza, Injectable, Mdck, Preservative Free, Quadrivalt 2022-03-02 00:00:00 Completed Nita Seybold - External Influenza, Injectable, Mdck, Preservative Free, Quadrivalt 2022-03-02 00:00:00 Completed Nita Seybold - External Influenza, Injectable, Mdck, Preservative Free, Quadrivalt 2022-03-02 00:00:00 Completed Nita Seybold - External Influenza, Injectable, Mdck, Preservative Free, Quadrivalt 2022-03-02 00:00:00 Completed Nita Seybold - External Influenza, Injectable, Mdck, Preservative Free, Quadrivalt 2022-03-02 00:00:00 Completed Nita Seybold - External Influenza, Injectable, Mdck, Preservative Free, Quadrivalt 2022-03-02 00:00:00 Completed Nita Seybold - External Influenza, Injectable, Mdck, Preservative Free, Quadrivalt 2022-03-02 00:00:00 Completed Nita Seybold - External Influenza, Injectable, Mdck, Preservative Free, Quadrivalt 2022-03-02 00:00:00 Completed Nita Seybold - External Influenza, Injectable, Mdck, Preservative Free, Quadrivalt 2022-03-02 00:00:00 Completed Nita Seybold - External Influenza, Injectable, Mdck, Preservative Free, Quadrivalt 2022-03-02 00:00:00 Completed Nita Seybold - External Influenza, Injectable, Mdck, Preservative Free, Quadrivalt 2022-03-02 00:00:00 Completed Nita Seybold - External Influenza, Injectable, Mdck, Preservative Free, Quadrivalt 2022-03-02 00:00:00 Completed Nita Seybold - External Influenza, Injectable, Mdck, Preservative Free, Quadrivalt 2022-03-02 00:00:00 Completed Nita Seybold - External Influenza, Injectable, Mdck, Preservative Free, Quadrivalt 2022-03-02 00:00:00 Completed Nita Seybold - External Influenza, Injectable, Mdck, Preservative Free, Quadrivalt 2022-03-02 00:00:00 Completed Nita Seybold - External Influenza, Injectable, Mdck, Preservative Free, Quadrivalt 2022-03-02 00:00:00 Completed Nita Seybold - External Influenza Virus Vaccine, No Preserv, age 6 months and up 2020-12-08 00:00:00 Completed Nita Seybold - External Influenza Virus Vaccine, No Preserv, age 6 months and up 2020-12-08 00:00:00 Completed Nita Seybold - External Influenza Virus Vaccine, No Preserv, age 6 months and up 2020-12-08 00:00:00 Completed Nita Seybold - External Influenza Virus Vaccine, No Preserv, age 6 months and up 2020-12-08 00:00:00 Completed Nita Seybold - External Influenza Virus Vaccine, No Preserv, age 6 months and up 2020-12-08 00:00:00 Completed Nita Seybold - External Influenza Virus Vaccine, No Preserv, age 6 months and up 2020-12-08 00:00:00 Completed Nita Seybold - External Influenza Virus Vaccine, No Preserv, age 6 months and up 2020-12-08 00:00:00 Completed Nita Seybold - External Influenza Virus Vaccine, No Preserv, age 6 months and up 2020-12-08 00:00:00 Completed Nita Seybold - External Influenza Virus Vaccine, No Preserv, age 6 months and up 2020-12-08 00:00:00 Completed Nita Seybold - External Influenza Virus Vaccine, No Preserv, age 6 months and up 2020-12-08 00:00:00 Completed Nita Seybold - External Influenza Virus Vaccine, No Preserv, age 6 months and up 2020-12-08 00:00:00 Completed Nita Seybold - External Influenza Virus Vaccine, No Preserv, age 6 months and up 2020-12-08 00:00:00 Completed Nita Seybold - External Influenza Virus Vaccine, No Preserv, age 6 months and up 2020-12-08 00:00:00 Completed Nita Seybold - External Influenza Virus Vaccine, No Preserv, age 6 months and up 2020-12-08 00:00:00 Completed Nita Seybold - External Influenza Virus Vaccine, No Preserv, age 6 months and up 2020-12-08 00:00:00 Completed Nita Seybold - External Influenza Virus Vaccine, No Preserv, age 6 months and up 2020-12-08 00:00:00 Completed Nita Seybold - External Influenza Virus Vaccine, No Preserv, age 6 months and up 2020-12-08 00:00:00 Completed Nita Seybold - External Influenza Virus Vaccine, No Preserv, age 6 months and up 2020-12-08 00:00:00 Completed Nita Seybold - External Hepatitis B- 2 Dose (HEPLISAV B) 2013-06-18 00:00:00 Completed Nita Seybold - External Hepatitis B- 2 Dose (HEPLISAV B) 2013-06-18 00:00:00 Completed Nita Seybold - External Hepatitis B- 2 Dose (HEPLISAV B) 2013-06-18 00:00:00 Completed Nita Seybold - External Hepatitis B- 2 Dose (HEPLISAV B) 2013-06-18 00:00:00 Completed Nita Seybold - External Hepatitis B- 2 Dose (HEPLISAV B) 2013-06-18 00:00:00 Completed Nita Seybold - External Hepatitis B- 2 Dose (HEPLISAV B) 2013-06-18 00:00:00 Completed Nita Seybold - External Hepatitis B- 2 Dose (HEPLISAV B) 2013-06-18 00:00:00 Completed Nita Seybold - External Hepatitis B- 2 Dose (HEPLISAV B) 2013-06-18 00:00:00 Completed Nita Ortegaybold - External Influenza Virus Vaccine, No Preserv, age 6 months and up Unknown Completed Nita Wiggins eybold - External Influenza, Injectable, Mdck, Preservative Free, Quadrivalent Unknown Completed Nita Ortegaybold - External Influenza, Injectable, Mdck, Preservative Free, Quadrivalent Unknown Completed Nita Ortegaybold - External Influenza Virus Vaccine, No Preserv, age 6 months and up Unknown Completed Nita Wiggins eybold - External Hepatitis B- 2 Dose (HEPLISAV B) Unknown Completed Nita Guptaold - External Pneumococcal Vaccine, Polysaccharide Unknown Completed Nita Guptaol d - External Tdap- (Boostrix, Adacel) Unknown Completed Nita Guptaold - External Influenza Virus Vaccine, No Preserv, age 6 months and up Unknown Completed Nita carrbold - External Influenza, Injectable, Mdck, Preservative Free, Quadrivalent Unknown Completed Nita Guptaold - External Influenza, Injectable, Mdck, Preservative Free, Quadrivalent Unknown Completed Nita Pratt - External Influenza Virus Vaccine, No Preserv, age 6 months and up Unknown Completed Nita carrbold - External Hepatitis B- 2 Dose (HEPLISAV B) Unknown Completed Nita Ortegaybold - External Pneumococcal Vaccine, Polysaccharide Unknown Completed Nita Ortegaybol d - External Tdap- (Boostrix, Adacel) Unknown Completed Nita Guptaold - External Influenza Virus Vaccine, No Preserv, age 6 months and up Unknown Completed Nita Wiggnis eybold - External Influenza, Injectable, Mdck, Preservative Free, Quadrivalent Unknown Completed Nita Ortegaybold - External Influenza, Injectable, Mdck, Preservative Free, Quadrivalent Unknown Completed Nita Ortegaybold - External Influenza Virus Vaccine, No Preserv, age 6 months and up Unknown Completed Nita Wiggins eybold - External Hepatitis B- 2 Dose (HEPLISAV B) Unknown Completed Nita Ortegaybold - External Pneumococcal Vaccine, Polysaccharide Unknown Completed Nita Seybol d - External Tdap- (Boostrix, Adacel) Unknown Completed Nita Seybold - External Influenza, Injectable, Mdck, Preservative Free, Quadrivalent Unknown Completed Nita Ortegaybold - External Influenza Virus Vaccine, No Preserv, age 6 months and up Unknown Completed Nita Wiggins eybold - External Influenza, Injectable, Mdck, Preservative Free, Quadrivalent Unknown Completed Nita Seybold - External Influenza, Injectable, Mdck, Preservative Free, Quadrivalent Unknown Completed Nita Ortegaybold - External Influenza Virus Vaccine, No Preserv, age 6 months and up Unknown Completed Nita Wiggins eybold - External Hepatitis B- 2 Dose (HEPLISAV B) Unknown Completed Nita Seybold - External Pneumococcal Vaccine, Polysaccharide Unknown Completed Nita Ortegaol d - External Tdap- (Boostrix, Adacel) Unknown Completed Nita Ortegaybold - External Influenza, Injectable, Mdck, Preservative Free, Quadrivalent Unknown Completed Nita Ortegaybold - External Influenza Virus Vaccine, No Preserv, age 6 months and up Unknown Completed Nita Wiggins eybold - External Influenza, Injectable, Mdck, Preservative Free, Quadrivalent Unknown Completed Nita Ortegaybold - External Influenza, Injectable, Mdck, Preservative Free, Quadrivalent Unknown Completed Nita Ortegaybold - External Influenza Virus Vaccine, No Preserv, age 6 months and up Unknown Completed Nita Wiggins eybold - External Hepatitis B- 2 Dose (HEPLISAV B) Unknown Completed Nita Seybold - External Pneumococcal Vaccine, Polysaccharide Unknown Completed Nita Seybol d - External Tdap- (Boostrix, Adacel) Unknown Completed Nita Seybold - External Influenza, Injectable, Mdck, Preservative Free, Quadrivalent Unknown Completed Nita Seybold - External Influenza Virus Vaccine, No Preserv, age 6 months and up Unknown Completed Nita S eybold - External Influenza, Injectable, Mdck, Preservative Free, Quadrivalent Unknown Completed Nita Seybold - External Influenza, Injectable, Mdck, Preservative Free, Quadrivalent Unknown Completed Nita Seybold - External Influenza Virus Vaccine, No Preserv, age 6 months and up Unknown Completed Nita Wiggins eybold - External Hepatitis B- 2 Dose (HEPLISAV B) Unknown Completed Nita Seybold - External Pneumococcal Vaccine, Polysaccharide Unknown Completed Nita Seybol d - External Tdap- (Boostrix, Adacel) Unknown Completed Nita Seybold - External Influenza, Injectable, Mdck, Preservative Free, Quadrivalent Unknown Completed Nita Seybold - External Influenza Virus Vaccine, No Preserv, age 6 months and up Unknown Completed Nita S eybold - External Influenza, Injectable, Mdck, Preservative Free, Quadrivalent Unknown Completed Nita Seybold - External Influenza, Injectable, Mdck, Preservative Free, Quadrivalent Unknown Completed Nita Seybold - External Influenza Virus Vaccine, No Preserv, age 6 months and up Unknown Completed Nita Wiggins eybold - External Hepatitis B- 2 Dose (HEPLISAV B) Unknown Completed Nita Seybold - External Pneumococcal Vaccine, Polysaccharide Unknown Completed Nita Ortegaybol d - External Tdap- (Boostrix, Adacel) Unknown Completed Nita Ortegaybold - External Influenza, Injectable, Mdck, Preservative Free, Quadrivalent Unknown Completed Nita Ortegaybold - External Influenza Virus Vaccine, No Preserv, age 6 months and up Unknown Completed Nita Wiggins eybold - External Influenza, Injectable, Mdck, Preservative Free, Quadrivalent Unknown Completed Nita Seybold - External Influenza, Injectable, Mdck, Preservative Free, Quadrivalent Unknown Completed Nita Ortegaybold - External Influenza Virus Vaccine, No Preserv, age 6 months and up Unknown Completed Nita Wiggins eybold - External Hepatitis B- 2 Dose (HEPLISAV B) Unknown Completed Nita Seybold - External Pneumococcal Vaccine, Polysaccharide Unknown Completed Nita Seybol d - External Tdap- (Boostrix, Adacel) Unknown Completed Nita Seybold - External Influenza, Injectable, Mdck, Preservative Free, Quadrivalent Unknown Completed Nita Seybold - External Influenza Virus Vaccine, No Preserv, age 6 months and up Unknown Completed Nita S eybold - External Influenza, Injectable, Mdck, Preservative Free, Quadrivalent Unknown Completed Nita Seybold - External Influenza, Injectable, Mdck, Preservative Free, Quadrivalent Unknown Completed Nita Seybold - External Influenza Virus Vaccine, No Preserv, age 6 months and up Unknown Completed Nita Wiggins eybold - External Hepatitis B- 2 Dose (HEPLISAV B) Unknown Completed Nita Seybold - External Pneumococcal Vaccine, Polysaccharide Unknown Completed Nita Seybol d - External Tdap- (Boostrix, Adacel) Unknown Completed Nita Seybold - External Influenza, Injectable, Mdck, Preservative Free, Quadrivalent Unknown Completed Nita Seybold - External Influenza Virus Vaccine, No Preserv, age 6 months and up Unknown Completed Nita S eybold - External Influenza, Injectable, Mdck, Preservative Free, Quadrivalent Unknown Completed Nita Seybold - External Influenza, Injectable, Mdck, Preservative Free, Quadrivalent Unknown Completed Nita Seybold - External Influenza Virus Vaccine, No Preserv, age 6 months and up Unknown Completed Nita Wiggins eybold - External Hepatitis B- 2 Dose (HEPLISAV B) Unknown Completed Nita Seybold - External Pneumococcal Vaccine, Polysaccharide Unknown Completed Nita Ortegaybol d - External Tdap- (Boostrix, Adacel) Unknown Completed Nita Ortegaybold - External Influenza, Injectable, Mdck, Preservative Free, Quadrivalent Unknown Completed Nita Ortegaybold - External Influenza Virus Vaccine, No Preserv, age 6 months and up Unknown Completed Nita Wiggins eybold - External Influenza, Injectable, Mdck, Preservative Free, Quadrivalent Unknown Completed Nita Seybold - External Influenza, Injectable, Mdck, Preservative Free, Quadrivalent Unknown Completed Nita Ortegaybold - External Influenza Virus Vaccine, No Preserv, age 6 months and up Unknown Completed Nita Wiggins eybold - External Hepatitis B- 2 Dose (HEPLISAV B) Unknown Completed Nita Seybold - External Pneumococcal Vaccine, Polysaccharide Unknown Completed Nita Seybol d - External Tdap- (Boostrix, Adacel) Unknown Completed Nita Seybold - External Influenza, Injectable, Mdck, Preservative Free, Quadrivalent Unknown Completed Nita Seybold - External Influenza Virus Vaccine, No Preserv, age 6 months and up Unknown Completed Nita S eybold - External Influenza, Injectable, Mdck, Preservative Free, Quadrivalent Unknown Completed Nita Seybold - External Influenza, Injectable, Mdck, Preservative Free, Quadrivalent Unknown Completed Nita Seybold - External Influenza Virus Vaccine, No Preserv, age 6 months and up Unknown Completed Nita Wiggins brunobold - External Hepatitis B- 2 Dose (HEPLISAV B) Unknown Completed Nita Guptaeli - External Pneumococcal Vaccine, Polysaccharide Unknown Completed Nita Guptaol d - External Tdap- (Boostrix, Adacel) Unknown Completed Nita Ortegaleslie - External Influenza, Injectable, Mdck, Preservative Free, Quadrivalent Unknown Completed Nita Terence - External Vital Signs Vital Name Observation Time Observation Value Comments S ource Systolic blood pressure 2023-07-23 16:06:00 108 mm[Hg] Nita Ortegaybo ld - External Diastolic blood pressure 2023-07-23 16:06:00 70 mm[Hg] Nita Ortegaybo ld - External Heart rate 2023-07-23 16:06:00 68 /min Samuelse casey Seybold - External Body temperature 2023-07-23 16:06:00 37.06 Sayra Nita Ortegaybold - External Respiratory rate 2023-07-23 16:06:00 18 /min Nita Ortegaybold - External Body height 2023-07-23 16:06:00 156.5 cm Naomi ey Seybold - External Body weight 2023-07-23 16:06:00 78.382 kg Naomi ey Seybold - External BMI 2023-07-23 16:06:00 32.00 kg/m2 Naomi ey Seybold - External Systolic blood pressure 2023-07-13 18:28:00 100 mm[Hg] Nita Ortegaybo ld - External Diastolic blood pressure 2023-07-13 18:28:00 60 mm[Hg] Nita Ortegaybo ld - External Heart rate 2023-07-13 18:28:00 86 /min Kelse y Seybold - External Body temperature 2023-07-13 18:28:00 36.67 Sayra Nita Seybold - External Respiratory rate 2023-07-13 18:28:00 18 /min Nita Ortegaybold - External Body height 2023-07-13 18:28:00 160 cm Naomi ey Seybold - External Body weight 2023-07-13 18:28:00 78.926 kg Naomi ey Seybold - External BMI 2023-07-13 18:28:00 30.82 kg/m2 Naomi ey Seybold - External Oxygen saturation in Arterial blood by Pulse oximetry 2023-07-13 18:28:00 98 /min Nita Seybo ld - External Systolic blood pressure 2023-06-27 15:38:00 115 mm[Hg] Nita Seybo ld - External Diastolic blood pressure 2023-06-27 15:38:00 79 mm[Hg] Nita Seybo ld - External Heart rate 2023-06-27 15:38:00 86 /min Samuelse y Seybold - External Body temperature 2023-06-27 15:38:00 37.06 Sayra Nita Seybold - External Respiratory rate 2023-06-27 15:38:00 20 /min Nita Seybold - External Body height 2023-06-27 15:38:00 160 cm Naomi ey Seybold - External Body weight 2023-06-27 15:38:00 79.742 kg Naomi ey Seybold - External BMI 2023-06-27 15:38:00 31.14 kg/m2 Naomi ey Seybold - External Oxygen saturation in Arterial blood by Pulse oximetry 2023-06-27 15:38:00 98 /min Nita Seybo ld - External Systolic blood pressure 2023-05-16 22:08:00 128 mm[Hg] Nita Seybo ld - External Diastolic blood pressure 2023-05-16 22:08:00 83 mm[Hg] Nita Seybo ld - External Heart rate 2023-05-16 22:08:00 93 /min Samuelse y Seybold - External Body temperature 2023-05-16 22:08:00 36.67 Sayra Nita Seybold - External Respiratory rate 2023-05-16 22:08:00 15 /min Nita Seybold - External Body height 2023-05-16 22:08:00 160 cm Naomi ey Seybold - External Body weight 2023-05-16 22:08:00 81.012 kg Naomi ey Seybold - External BMI 2023-05-16 22:08:00 31.64 kg/m2 Naomi ey Seybold - External Oxygen saturation in Arterial blood by Pulse oximetry 2023-05-16 22:08:00 99 /min Nita Seybo ld - External Systolic blood pressure 2023-05-02 16:29:00 125 mm[Hg] Nita Seybo ld - External Diastolic blood pressure 2023-05-02 16:29:00 80 mm[Hg] Nita Seybo ld - External Heart rate 2023-05-02 16:29:00 82 /min Kelse y Seybold - External Body height 2023-05-02 16:29:00 160 cm Naomi ey Seybold - External Body weight 2023-05-02 16:29:00 83.008 kg Naomi ey Seybold - External BMI 2023-05-02 16:29:00 32.42 kg/m2 Naomi ey Seybold - External Oxygen saturation in Arterial blood by Pulse oximetry 2023-05-02 16:29:00 99 /min Niat Ortegaybo ld - External Systolic blood pressure 2023-04-18 17:06:00 127 mm[Hg] Nita Seybo ld - External Diastolic blood pressure 2023-04-18 17:06:00 87 mm[Hg] Nita Seybo ld - External Heart rate 2023-04-18 17:06:00 83 /min Samuelse y Seybold - External Body temperature 2023-04-18 17:06:00 36.61 Sayra Nita Seybold - External Respiratory rate 2023-04-18 17:06:00 20 /min Nita Seybold - External Body height 2023-04-18 17:06:00 160 cm Naomi ey Seybold - External Body weight 2023-04-18 17:06:00 79.379 kg Naomi ey Seybold - External BMI 2023-04-18 17:06:00 31.00 kg/m2 Naomi ey Seybold - External Oxygen saturation in Arterial blood by Pulse oximetry 2023-04-18 17:06:00 100 /min Nita Seybo ld - External Body height 2023-02-20 16:00:00 160 cm Naomi ey Seybold - External Body weight 2023-02-20 16:00:00 78.472 kg Naomi ey Seybold - External BMI 2023-02-20 16:00:00 30.65 kg/m2 Naomi ey Seybold - External Body height 2023-02-05 19:42:00 160 cm Naomi ey Seybold - External Body weight 2023-02-05 19:42:00 78.472 kg Naomi ey Seybold - External BMI 2023-02-05 19:42:00 30.65 kg/m2 Naomi ey Seybold - External Systolic blood pressure 2023-01-16 19:26:00 128 mm[Hg] Nita Seybo ld - External Diastolic blood pressure 2023-01-16 19:26:00 77 mm[Hg] Nita Seybo ld - External Heart rate 2023-01-16 19:26:00 89 /min Kelse y Seybold - External Body temperature 2023-01-16 19:26:00 36.28 Sayra Nita Seybold - External Respiratory rate 2023-01-16 19:26:00 15 /min Nita Seybold - External Body height 2023-01-16 19:26:00 160 cm Naomi ey Seybold - External Body weight 2023-01-16 19:26:00 80.74 kg Naomi ey Seybold - External BMI 2023-01-16 19:26:00 31.53 kg/m2 Naomi ey Seybold - External Oxygen saturation in Arterial blood by Pulse oximetry 2023-01-16 19:26:00 99 /min Nita Seybo ld - External Systolic blood pressure 2022-12-19 14:02:00 130 mm[Hg] Nita Seybo ld - External Diastolic blood pressure 2022-12-19 14:02:00 86 mm[Hg] Nita Seybo ld - External Heart rate 2022-12-19 14:02:00 82 /min Kelse y Seybold - External Body temperature 2022-12-19 14:02:00 36.61 Sayra Nita Seybold - External Respiratory rate 2022-12-19 14:02:00 15 /min Nita Seybold - External Body height 2022-12-19 14:02:00 160 cm Naomi ey Seybold - External Body weight 2022-12-19 14:02:00 79.379 kg Naomi ey Seybold - External BMI 2022-12-19 14:02:00 31.00 kg/m2 Naomi ey Seybold - External Oxygen saturation in Arterial blood by Pulse oximetry 2022-12-19 14:02:00 99 /min Nita Seybo ld - External Systolic blood pressure 2022-09-18 15:32:00 104 mm[Hg] Nita Seybo ld - External Diastolic blood pressure 2022-09-18 15:32:00 74 mm[Hg] Nita Seybo ld - External Heart rate 2022-09-18 15:32:00 73 /min Kelse y Seybold - External Respiratory rate 2022-09-18 15:32:00 16 /min Nita Seybold - External Body height 2022-09-18 15:32:00 160 cm Naomi ey Seybold - External Body weight 2022-09-18 15:32:00 78.472 kg Naomi ey Seybold - External BMI 2022-09-18 15:32:00 30.65 kg/m2 Naomi ey Seybold - External Systolic blood pressure 2022-09-06 19:08:00 117 mm[Hg] Nita Seybo ld - External Diastolic blood pressure 2022-09-06 19:08:00 64 mm[Hg] Nita Seybo ld - External Heart rate 2022-09-06 19:08:00 102 /min Kelse y Seybold - External Body temperature 2022-09-06 19:08:00 36.78 Sayra Nita Seybold - External Respiratory rate 2022-09-06 19:08:00 18 /min Nita Seybold - External Body height 2022-09-06 19:08:00 160 cm Naomi ey Seybold - External Body weight 2022-09-06 19:08:00 78.926 kg Naomi ey Seybold - External BMI 2022-09-06 19:08:00 30.82 kg/m2 Naomi ey Seybold - External Oxygen saturation in Arterial blood by Pulse oximetry 2022-09-06 19:08:00 98 /min Nita Seybo ld - External Systolic blood pressure 2022-08-31 14:37:00 124 mm[Hg] Nita Seybo ld - External Diastolic blood pressure 2022-08-31 14:37:00 76 mm[Hg] Nita Seybo ld - External Heart rate 2022-08-31 14:37:00 78 /min Kelse y Seybold - External Body temperature 2022-08-31 14:37:00 36.39 Sayra Nita Seybold - External Respiratory rate 2022-08-31 14:37:00 14 /min Nita Seybold - External Body height 2022-08-31 14:37:00 160 cm Naomi ey Seybold - External Body weight 2022-08-31 14:37:00 79.289 kg Naomi ey Seybold - External BMI 2022-08-31 14:37:00 30.96 kg/m2 Naomi ey Seybold - External Oxygen saturation in Arterial blood by Pulse oximetry 2022-08-31 14:37:00 99 /min Nita Seybo ld - External Systolic blood pressure 2022-08-18 15:29:00 110 mm[Hg] Nita Seybo ld - External Diastolic blood pressure 2022-08-18 15:29:00 68 mm[Hg] Nita Seybo ld - External Heart rate 2022-08-18 15:29:00 79 /min Samuelse y Seybold - External Body temperature 2022-08-18 15:29:00 36.22 Sayra Nita Seybold - External Respiratory rate 2022-08-18 15:29:00 17 /min Nita Seybold - External Body height 2022-08-18 15:29:00 160 cm Naomi ey Seybold - External Body weight 2022-08-18 15:29:00 77.656 kg Naomi ey Seybold - External BMI 2022-08-18 15:29:00 30.33 kg/m2 Naomi ey Seybold - External Oxygen saturation in Arterial blood by Pulse oximetry 2022-08-18 15:29:00 98 /min Nita Seybo ld - External Systolic blood pressure 2022-08-03 13:06:00 118 mm[Hg] Nita Seybo ld - External Diastolic blood pressure 2022-08-03 13:06:00 82 mm[Hg] Nita Seybo ld - External Heart rate 2022-08-03 13:06:00 72 /min Samuelse y Seybold - External Body temperature 2022-08-03 13:06:00 36.72 Sayra Nita Seybold - External Respiratory rate 2022-08-03 13:06:00 20 /min Nita Seybold - External Oxygen saturation in Arterial blood by Pulse oximetry 2022-08-03 13:06:00 96 /min Nita Seybo ld - External Systolic blood pressure 2022-06-19 16:32:00 120 mm[Hg] Nita Seybo ld - External Diastolic blood pressure 2022-06-19 16:32:00 72 mm[Hg] Nita Seybo ld - External Heart rate 2022-06-19 16:32:00 88 /min Kelse y Seybold - External Body temperature 2022-06-19 16:32:00 36.11 Sayra Nita Seybold - External Respiratory rate 2022-06-19 16:32:00 16 /min Nita Seybold - External Body height 2022-06-19 16:32:00 157.5 cm Naomi ey Seybold - External Body weight 2022-06-19 16:32:00 80.74 kg Naomi ey Seybold - External BMI 2022-06-19 16:32:00 32.56 kg/m2 Naomi ey Seybold - External Systolic blood pressure 2022-05-31 14:21:00 110 mm[Hg] Nita Seybo ld - External Diastolic blood pressure 2022-05-31 14:21:00 70 mm[Hg] Nita Seybo ld - External Heart rate 2022-05-31 14:21:00 83 /min Kelse y Seybold - External Body temperature 2022-05-31 14:21:00 36.61 Sayra Nita Seybold - External Respiratory rate 2022-05-31 14:21:00 14 /min Nita Seybold - External Body height 2022-05-31 14:21:00 162.6 cm Naomi ey Seybold - External Body weight 2022-05-31 14:21:00 82.101 kg Naomi ey Seybold - External BMI 2022-05-31 14:21:00 31.07 kg/m2 Naomi ey Seybold - External Oxygen saturation in Arterial blood by Pulse oximetry 2022-05-31 14:21:00 99 /min Nita Seybo ld - External Systolic blood pressure 2022-05-15 15:57:00 102 mm[Hg] Nita Seybo ld - External Diastolic blood pressure 2022-05-15 15:57:00 68 mm[Hg] Nita Grimaldo ld - External Heart rate 2022-05-15 15:57:00 82 /min Monty Pratt - External Body temperature 2022-05-15 15:57:00 37.22 Sayra Nita Pratt - External Body height 2022-05-15 15:57:00 162.6 cm Naomi carr Seybold - External Body weight 2022-05-15 15:57:00 80.468 kg Naomi carr Seybold - External BMI 2022-05-15 15:57:00 30.45 kg/m2 Naomi carr Seybold - External Oxygen saturation in Arterial blood by Pulse oximetry 2022-05-15 15:57:00 99 /min Nita Grimaldo ld - External Encounters Start Date/Time End Date/Time Encounter Type Admission Type Attending [email or web address] Care Department Encounter ID Source 2023-08-16 09:15:00 2023-08-16 09:15:00 Outpatient SILAS HANDLEY [id number] [facility] 2023-08-10 10:45:00 2023-08-10 10:45:00 Outpatient AARON ZUNIGA [id number] [facility] 2023-08-09 00:00:00 2023-08-09 00:00:00 Outpatient ANA GRECO [id number] [facility] 2023-07-23 11:50:00 2023-07-23 11:50:00 Outpatient LAB45 NITA YA [id number] [facility] 2023-07-23 10:45:00 2023-07-23 10:45:00 Outpatient MARJORIE FLORES [id number] [facility] 2023-07-17 14:15:00 2023-07-17 14:15:00 Outpatient NITA YA [id number] Nita Pratt 2023-07-17 13:40:00 2023-07-17 13:40:00 Outpatient AINSLEY ABERNATHY [id number] [facility] 2023-07-17 00:00:00 2023-07-17 00:00:00 Outpatient ANA GRECO [facility] [id number] [facility] 2023-07-16 16:35:00 2023-07-16 16:35:00 Outpatient LAB90 NITA NITA [id number] Nita Sey[facility] 2023-07-16 00:00:00 2023-07-16 00:00:00 Outpatient ANA GRECO [facility]A [id number] [facility] 2023-07-13 14:15:00 2023-07-13 14:15:00 Outpatient LAB90 NITA NITA [id number] [facility] 2023-07-13 13:30:00 2023-07-13 13:30:00 Outpatient ANA GRECODANNY YA [id number] [facility] 2023-07-02 00:00:00 2023-07-02 00:00:00 Outpatient NTIA YA [id number] [facility] 2023-07-02 00:00:00 2023-07-02 00:00:00 Outpatient PREZASILAS Wiggins NITA YA [id number] [facility] 2023-06-29 09:25:00 2023-06-29 09:25:00 Outpatient LAB90 [facility]ITA YA [id number] [facility] 2023-06-29 00:00:00 2023-06-29 00:00:00 Outpatient PREZASILAS Wiggins NITA YA [id number] [facility] 2023-06-28 00:00:00 2023-06-28 00:00:00 Outpatient PREZAFeliciano, SILAS NITA YA [id number] [facility] 2023-06-27 11:20:00 2023-06-27 11:20:00 Outpatient LAB90 NITA YA [id number] [facility] 2023-06-27 10:30:00 2023-06-27 10:30:00 Outpatient PREZAS, SILAS NITA YA [id number] Nita Seybold 2023-06-01 00:00:00 2023-06-01 00:00:00 Outpatient PREZAS, SILAS NITA YA [id number] Nita Ortegaybeli 2023-05-16 16:15:00 2023-05-16 16:15:00 Outpatient PREZAS, SILAS NITA YA [id number] Nita Ortegaybeli 2023-05-10 13:30:00 2023-05-10 13:30:00 Outpatient NITA YA [id number] Nita Ortegaybeli 2023-05-02 10:15:00 2023-05-02 10:15:00 Outpatient ZUNIGAAARON NITA YA [id number] [facility] 00:00:00 2023-05-02 00:00:00 Outpatient NITA YA [id number] Nita eli 2023-04-19 00:00:00 2023-04-19 00:00:00 Outpatient PREZAS, SILAS NITA YA [id number] [facility] 2023-04-18 11:35:00 2023-04-18 11:35:00 Outpatient LAB90 NITA YA [id number] [facility] 2023-04-18 11:00:00 2023-04-18 11:00:00 Outpatient PREZAS, SILAS NITA YA [id number] [facility] 2023-04-17 09:30:00 2023-04-17 09:30:00 Outpatient PREZAS, SILAS NITA YA [id number] [facility] 2023-04-12 00:00:00 2023-04-12 00:00:00 Outpatient PREZAS, SILAS NITA YA [id number] [facility] 2023-04-12 00:00:00 2023-04-12 00:00:00 Outpatient PREZAS, SILAS NITA YA [id number] [facility] 2023-03-18 00:00:00 2023-03-18 00:00:00 Outpatient PREZAS, SILAS NITA YA [id number] [facility] 2023-03-04 00:00:00 2023-03-04 00:00:00 Outpatient MARJORIE FLORES [id number] [facility] 2023-03-04 00:00:00 2023-03-04 00:00:00 Outpatient PREZAS, SILAS NITA YA [id number] [facility] 2023-02-22 00:00:00 2023-02-22 00:00:00 Outpatient HI, EBONY YA [id number] [facility] 2023-02-20 10:00:00 2023-02-20 10:00:00 Outpatient GOLDEN, JEFFREY NITA YA [id number] [facility] 2023-02-12 06:30:00 2023-02-12 06:30:00 [facility] HI[facility] [id number] [facility]:00:00 2023-02-08 00:00:00 Outpatient GROUP, NITA YA [id number] [facility] 2023-02-05 14:00:00 2023-02-05 14:00:00 Outpatient LEXUS, KAYLA YA [id number] [facility] 2023-01-22 09:00:00 2023-01-22 09:00:00 Outpatient LEXUS, KAYLA YA [id number] [facility] 2023-01-16 14:00:00 2023-01-16 14:00:00 Outpatient PREZAS, SILAS NITA YA [id number] [facility] 00:00:00 2023-01-12 00:00:00 Outpatient PREZAS, SILAS YA [id number] [facility] 2023-01-11 11:20:00 2023-01-11 11:20:00 Outpatient MORRIS, MILAGRO YA [id number] [facility] 2022-12-25 10:45:00 2022-12-25 10:45:00 Outpatient AHMARJORIE BUCK [id number] Nita Seybold 2022-12-22 00:00:00 2022-12-22 00:00:00 Outpatient HI, EBONY YA [id number] [facility] 2022-12-22 00:00:00 2022-12-22 00:00:00 Outpatient NITA NITA [id number] Nita Pratt 2022-12-22 00:00:00 2022-12-22 00:00:00 Outpatient MD NITA SALOMON [id number] Nita Ortegaybeli 2022-12-22 00:00:00 2022-12-22 00:00:00 Outpatient HIEBONY Hodges NITA YA [id number] [facility] 2022-12-21 00:00:00 2022-12-21 00:00:00 Outpatient PREZAS, SILAS NITA NITA [id number] [facility] 2022-12-20 10:45:00 2022-12-20 10:45:00 Outpatient NITA YA [id number] iNta Orte[facility] 2022-12-19 09:25:00 2022-12-19 09:25:00 Outpatient LAB90 NITA YA [id number] Nita [facility]te[facility] 2022-12-19 08:45:00 2022-12-19 08:45:00 Outpatient PREZAS, SILAS NITA YA [id number] [facility] 2022-12-19 00:00:00 2022-12-19 00:00:00 Outpatient NITA YA [id number] Nita Ortegay[facility]eli 2022-12-01 09:30:00 2022-12-01 09:30:00 Outpatient PREZAS, SILAS NITA YA [id number] [facility]ita Orte[facility] 2022-11-01 00:00:00 2022-11-01 00:00:00 Outpatient PREZAS, SILAS NITA YA [id number] Nita Seybold 2022-11-01 00:00:00 2022-11-01 00:00:00 Outpatient NITA YA [id number] Nita Seybold 2022-10-29 00:00:00 2022-10-29 00:00:00 Outpatient NITA YA [id number] Nita Seybeli 2022-10-16 00:00:00 2022-10-16 00:00:00 Outpatient PREZAS, SILAS NITA YA [id number] [facility] 2022-10-14 00:00:00 2022-10-14 00:00:00 Outpatient MARJORIE FLORES NITA YA [id number] [facility] 2022-10-04 00:00:00 2022-10-04 00:00:00 Outpatient NITA YA [id number] [facility] 2022-09-20 10:30:00 2022-09-20 10:30:00 Outpatient VENKATA RIK YA [id number] [facility] 2022-09-19 00:00:00 2022-09-19 00:00:00 Outpatient JONATHAN FLORESANANDA [facility]A [id number] [facility]-18 11:00:00 2022-09-18 11:00:00 Outpatient JONATHAN FLORESANANDA YA [id number] [facility] 2022-09-11 00:00:00 2022-09-11 00:00:00 Outpatient NITA YA [id number] [facility] 2022-09-08 00:00:00 2022-09-08 00:00:00 Outpatient NITA YA [id number] [facility] 2022-09-06 14:15:00 2022-09-06 14:15:00 Outpatient JULIETTEMichael RIK YA [id number] [facility] 2022-09-01 00:00:00 2022-09-01 00:00:00 Outpatient SILAS HANDLEY [id number] [facility] 2022-08-31 10:15:00 2022-08-31 10:15:00 Outpatient LAB90 NITA YA [id number] [facility] 2022-08-31 09:30:00 2022-08-31 09:30:00 Outpatient SILAS HANDLEY [id number] [facility] 2022-08-23 06:30:00 2022-08-23 06:30:00 Outpatient EBONY DO [id number] [facility] 2022-08-18 10:20:00 2022-08-18 10:20:00 Outpatient EBONY DO NITA YA [id number] Nita Seybeli 2022-08-18 00:00:00 2022-08-18 00:00:00 Outpatient NITA YA [id number] Nita Seybold 2022-08-03 08:00:00 2022-08-03 08:00:00 Outpatient BRANDYNREX Tilley NITA YA [id number] [facility] 2022-08-02 00:00:00 2022-08-02 00:00:00 Outpatient PREZAS SILAS NITA YA [id number] [facility]ita Seybeli 2022-07-18 00:00:00 2022-07-18 00:00:00 Outpatient PREZAS SILAS YA [id number] Nita Seybold 2022-07-13 00:00:00 2022-07-13 00:00:00 Outpatient MD NITA SALOMON [id number] [facility] 2022-07-12 00:00:00 2022-07-12 00:00:00 Outpatient MARJORIE FLORES [id number] [facility] 2022-07-10 00:00:00 2022-07-10 00:00:00 Outpatient PREZASSILAS NITA YA [id number] Nita Seybold 2022-06-27 10:40:00 2022-06-27 10:40:00 Outpatient NITA YA [id number] Nita Seybold 2022-06-27 10:40:00 2022-06-27 10:40:00 Outpatient NITA YA [id number] Nita Seybeli 2022-06-27 00:00:00 2022-06-27 00:00:00 Outpatient PREZASILAS Wiggins NITA YA [id number] [facility]ita Sey[facility] 2022-06-19 12:15:00 2022-06-19 12:15:[id number] 2022-06-19 11:30:00 2022-06-19 11:30:00 Outpatient MARJORIE FLORES NITA [id number] [facility] Orte[facility] 2022-06-05 15:45:00 2022-06-05 15:45:00 Outpatient MARJORIE FLORES NITA [id number] [facility] 2022-06-01 14:40:00 2022-06-01 14:40:00 Outpatient NOCHUGH Candelaria NITA YA [id number] [facility] Sey[facility]eli 2022-06-01 14:15:00 2022-06-01 14:15:00 Outpatient TOMOGRAPHY, CK NITA YA [id number] [facility] 2022-05-31 10:15:00 2022-05-31 10:15:00 Outpatient LAB90 NITA YA [id number] Nita ybeli 2022-05-31 09:30:00 2022-05-31 09:30:00 Outpatient PREZAS, SILAS YA [id number] Nita Seybeli 2022-05-16 10:05:00 2022-05-16 10:05:00 Outpatient NITA YA [id number] Nita ybeli 2022-05-16 10:00:00 2022-05-16 10:00:00 Outpatient NITA YA [id number] Nita Orte[facility] 2022-05-16 09:55:00 2022-05-16 09:55:00 Outpatient NITA YA [id number] Niat Seybeli 2022-05-16 09:50:00 2022-05-16 09:50:00 Outpatient NITA YA [id number] Nita Seybold 2022-05-16 00:00:00 2022-05-16 00:00:00 Outpatient PRETRACI, SILAS NITA YA [id number] Nita Seybold 2022-05-15 10:30:00 2022-05-15 10:30:00 Outpatient LAB90 NITA YA [id number] Nita Seybold 2022-05-15 10:00:00 2022-05-15 10:00:00 Outpatient PREZAS, SILAS YA [id number] Nita Seybold 2022-05-15 00:00:00 2022-05-15 00:00:00 Outpatient SILAS HANDLEY NITA NITA [id number] [facility] 2022-05-08 09:00:00 2022-05-08 09:00:00 Outpatient MARJORIE FLORES NITA YA [id number] Nita Pratt 2021-11-07 03:06:00 2021-11-08 11:00:00 Inpatient Will Lagos [facility] MEDI.01 [id number] [facility] 2021-11-07 15:20:00 2021-11-07 15:20:00 [facility] [id number] [facility] are [facility] 2021-08-22 02:50:00 2021-08-22 02:50:00 [facility] [id number] [facility] 2021-07-08 13:40:00 2021-07-08 14:36:55 Office Visit Charline Thibodeaux [facility] [id number] [facility] 2021-07-08 00:00:00 2021-07-08 00:00:00 Telephone Sarita Fu Amanda [facility] 1.2.840.114 [id number] [id number] [facility] Results Test Description Test Time Test Comments Results Result Co mments Source [id number] 08:15:00* Test Item Value Reference Range Interpretation Comme nts GLUBED (test code = GLUBED) 121 MG/DL 70-105 H [id number] 01:23:00* Test Item Value Reference Range Interpretation Comme nts GLUBED (test code = GLUBED) 114 MG/DL 70-105 H [id number] 17:18:00* Test Item Value Reference Range Interpretation Comme nts GLUBED (test code = GLUBED) 134 MG/DL 70-105 H [id number] 13:30:00* Test Item Value Reference Range Interpretation Comme nts GLUBED (test code = GLUBED) 158 MG/DL 70-105 H [id number] 12:13:00* Test Item Value Reference Range Interpretation Comme nts GLUBED (test code = GLUBED) 175 MG/DL 70-105 H - XR ABDOMEN [id number] 11:08:00 [facility] : 1960 Sex: FPatient Name: INA FARLEY Unit No: [id number] EXAMS: CPT CODE: [id number] XR ABDOMEN 1V 33767 Abdomen (KUB) History: INCORRECT SUTURE NEEDLE COUNT Comparison: None at this time Location: H45 Number of images: 2 The bowel gas pattern is unremarkable. The bones appear unremarkable. No pathologic calcifications are identified. There is a thin linear metallic structure measuring 5 cmin length projected over the upper abdomen, which the operating room personnel report is not in thearea of interest and not the description of concern. A nasogastric tube terminates in the stomach. There are 3 small surgical structures superimposed over the upper sacrum. No curved surgical needle is demonstrated. IMPRESSION: There are no localizing signs in the abdomen. Electronically Signedby JUAN VAZQUEZ M.D. on 11/07/2021 at 1108 Reported and signed by: JUAN VAZQUEZ M.D. CC: Will Payan MD Technologist: JANAE CISNEROS RT(R) Fluoro Time: DAP (Gy m2): Air Kerma (mGy): Trscr Dt/Tm: 11/07/2021 (1108) by:BetsyPMT Printed Date/Time: 11/07/2021 (1111) Name: LILIYA FARLEY [facility] Phys: Will Brown [address] : 1960 Age: 61 Sex: [place] [address] Loc: P.SRG Exam Date: 11/07/2021 Status: REG SDC PH: FAX: PAGE 1 Signed ReportGLUBED 2021-11-07 06:45:00* Test Item Value Reference Range Interpretation Comme nts GLUBED (test code = GLUBED) 116 MG/DL 70-105 H BASIC METABOLIC [id number] 11:39:00* Test Item Value Reference Range Interpretation Comme nts SODIUM (test code = NA) 141 mmol/L 136-145 N Please note: New Reference Range Apr 2020 POTASSIUM (test code = K) 4.2 mmol/L 3.5-5.1 N CHLORIDE (test code = CL) 103 mmol/L 98-107 N Please note: New Reference Range Apr 2020 CARBON DIOXIDE (test code = CO2) 24 mmol/L 20-31 N Please note: N ew Reference Range Apr 2020 GLUCOSE (test code = GLU) 116 mg/dL 74-106 H Please note: New Reference Range Apr 2020 BLOOD UREA NITROGEN (test code = BUN) 10 mg/dL 9-23 N Please note: New Reference Range Apr 2020 GLOMERULAR FILTRATION RATE (test code = GFR) >=60 max estimate mL/min >60 Units are mL/min/1.73m2 The estimated glomerular filtration rate is computed usingpatient race, age (>18), sex, and serum creatinine. If anyof the needed data elements are missing the Laboratory cannot compute an estimation of the glomerular filtration rate. CREATININE (test code = CREAT) 0.60 mg/dL 0.55-1.02 N Please note: New Reference Range Apr 2020 CALCIUM (test code = CA) 8.8 mg/dL 8.7-10.4 N Please note: New Reference Range Apr 2020 CBC W/AUTO [id number] 11:32:00* Test Item Value Reference Range Interpretation Comme nts WHITE BLOOD CELL (test code = WBC) 9.7 x10 3/uL 4.8-10.8 N RED BLOOD CELL (test code = RBC) 5.15 x10 6/uL 4.20-5.40 N HEMOGLOBIN (test code = HGB) 14.4 g/dL 12.0-16.0 N HEMATOCRIT (test code = HCT) 41.8 % 37.0-47.0 N MEAN CELL VOLUME (test code = MCV) 81.2 fL 81.0-99.0 N MEAN CELL HGB (test code = MCH) 28.0 pg 27-31 N MEAN CELL HGB CONCENTRATION (test code = MCHC) 34.4 G/DL 33-36.5 N RED CELL DISTRIBUTION WIDTH (test code = RDW) 13.2 % 12.9-16.9 N PLATELET COUNT (test code = PLT) 463 x10 3/uL 150-440 H MEAN PLATELET VOLUME (test c ode = MPV) 9.0 fL 8.9-12.4 N NEUTROPHIL % (test code = NT%) 60.6 % 42.2-75.2 N LYMPHOCYTE % (test code = LY%) 30.8 % 20.5-51.1 N MONOCYTE % (test code = MO%) 6.6 % 1.7-9.3 N EOSINOPHIL % (test code = EO%) 1.0 % 0.0-7.0 N BASOPHIL % (test code = BA%) 0.6 % 0-2.5 N NEUTROPHIL # (test code = NT#) 5.85 x10 3/uL 1.80-7.70 N LYMPHOCYTE # (test code = LY#) 2.98 x10 3/uL 1.00-4.80 N MONOCYTE # (test code = MO#) 0.64 x10 3/uL 0.00-0.80 N EOSINOPHIL # (test code = EO#) 0.10 x10 3/uL 0.00-0.45 N BASOPHIL # (test code = BA#) 0.06 x10 3/uL 0.0-0.20 N Notes Date/Time Note Provider Source 2023-07-23 11:07:23 2796-05-87B12:07:23F ormatting of this note is different from the original.Chief ComplaintPatient presents withFatigueFor almost a month always feels fatigue and tired.Carolyn Burks 12483-7Gfzha ErgeYK6128-69-23U33:07:27Nurse NoteTXT1.2.840.508391.1.13.131.2.7.2.727 879|[id number] for patient ctiz84270-5Nhvqf NoteLNNARRATIVEFormatted C-CDA narrative text[id number] 06-14-12T11:07:271.2.840.530255.1.72.3.15 |1.2.840.284316.1.13.131.2.7.2.727879_41 [id number] [facility] 2023-07-13 13:34:27 4911-94-80B51:34:27F ormatting of this note is different from the original.Chief ComplaintPatient presents withFatigueFatigue with tension headaches and pressure. Gets off balance at times. Left ear pain with blurred vision.Throat ProblemPaula L Tano Guzmánectronically signed by Chantelle Guzmán LVN at 07/13/2023 1:36 PM KVL50817-9Hyrlt YbzxYX4860-73-84G18:36:59Nurse NoteTXT1.2.840.852546.1.13.131.2.7.2.727 879|[id number] for patient ifah91323-1Qyele NoteLNNARRATIVEFormatted C-CDA narrative textH[facility] [place], [place] [id number] 06-14-02T13:36:591.2.840.462170.1.72.3.15 |1.2.840.996733.1.13.131.2.7.2.727879_41 [id number] [facility] 2023-06-27 10:37:38 0974-24-15I28:37:38F ormatting of this note is different from the original.Chief ComplaintPatient presents withFollow-upDMLast K1DVcjqftnov: 12/19/2022 6mo ago reading at 6.2 89450-2Jcrwm RjwnQF7489-82-04X81:44:00Nurse NoteTXT1.2.840.409525.1.13.131.2.7.2.727 879|[id number] for patient otrw13402-2Stfqk NoteLNNARRATIVEFormatted C-CDA narrative [id number] 06-13-16T10:44:001.2.840.009523.1.72.3.15 |1.2.840.169957.1.13.131.2.7.2.727879_41 [id number] [facility] 2023-05-02 10:33:02 9180-16-02G16:33:02F ormatting of this note is different from the original.Chief ComplaintPatient presents withBack PainComplete back painHx of Botox injection w/ [place] [address]-2Yjzkb FwhaTF7555-48-44F36:59:28Nurse NoteTXT1.2.840.328245.1.13.131.2.7.2.727 879|[id number] for patient eswl54052-8Vckjt NoteLNNARRATIVEFormatted C-CDA narrative [id number] 06-11-20T10:59:281.2.840.335392.1.72.3.15 |1.2.840.099919.1.13.131.2.7.2.727879_40 [id number] [facility] 2021-11-08 07:26:00 [id number] Wzm70fDPFrYY0fylpNFH x7AmKPW3OiIY50NcABClhc7ayWAIGerH4ZHR0584 -08-30T07:26:00 [facility] gynecology progress note report #: [id number] report status: signed date: 11/08/21 time: 725 patient: ina farley unit #: [id number] #: [id number] room #: p.0579 bed: 1 : 61 age: 61 sex: f attend: will payan md adm dt: 11/07/21 author: will payan md attention edits and/or addenda must be made in patient keeper for this note. edits and ammendments created in [employer] are not visible in patient keeper or the legal medical record ([facility]). -- assessment and plan -- problems: 1: prolapse of vaginal vault after hysterectomya/p: well post op home today, meds restrictions and follow up reviewed -- subjective -- patient narrative:no complaints -- objective -- vitals (11/07 07:26 - 11/08 07:26):temperature c: 36.7 (36.6 - 37.2)temperature source: oralpulse rate 72 (72 - 96)respiratory rate: 16 (16 - 20)bp: 99/63 (91/55 - 115/76) i/os (11/07 07:00 - 11/08 07:00):net 490.00intake 2,140.00output 1,650 additional v/s:in a chair with a smile indwelling osorio:no discontinued:yes comments:good output -- data -- medications ondansetron hcl/pf 4 mg iv q4h prn tramadol hcl 100 mg po q4h prnmetformin hcl 500 mg po tidpetrolatum,white 1 applic right eye q8h prnnaproxen 500 mg po bidhydromorphone hcl 1 mg iv q4h prnacetaminophen 1000 mg po l8kqgsmqjbj 50%-water 25 ml iv asdir prninsulin lispro 0 units subq j9jrmhmckbro hcl 50 mg po q4h prnzolpidem tartrate 5 mg po bedtime prnglucagon 1 mg im asdir prnsodium chloride 0.9% 1000 ml iv .b59dnmbftbkjwkyy hcl with/in sodium chloride 50 ml bag 25 mg iv q4h prn labs glu bed (11/08/21 01:11)glubed 114 h glu bed (11/07/21 17:07)glubed 134 h glu bed (11/07/21 13:19)glubed 158 h glu bed (11/07/21 12:02)glubed 175 h vitals temperature c: 11/08/21 06:26 11/08/21 05:08 36.7 11/08/21 00:17 36.9 11/07/21 21:14 36.9 11/07/21 16:57 37.2 11/07/21 16:49 11/07/21 16:19 11/07/21 15:49 11/07/21 14:49 11/07/21 14:34pulse rate 11/08/21 06:26 72 11/08/21 05:08 77 11/08/21 00:17 74 11/07/21 21:14 83 11/07/21 16:57 96 11/07/21 16:49 88 11/07/21 16:19 85 08/29/22 15:49 82 11/07/21 14:49 85 11/07/21 14:34 77respiratory rate: 11/08/21 06:26 11/08/21 05:08 11/08/21 00:17 11/07/21 21:14 16 11/07/21 16:57 20 11/07/21 16:49 11/07/21 16:19 11/07/21 15:49 11/07/21 14:49 11/07/21 14:34blood pressure: 11/08/21 06:26 99 / 63 11/08/21 05:08 91 / 55 11/08/21 00:17 103 / 64 11/07/21 21:14 97 / 56 11/07/21 16:57 105 / 67 11/07/21 16:49 105 / 67 11/07/21 16:19 107 / 69 11/07/21 15:49 104 / 68 11/07/21 14:49 108 / 70 11/07/21 14:34 109 / 73 signed in patientkeeper by will payan md on 11/08/21 at 07:27 electronically signed by will payan md on 11/08/21 at 0727attentio nedit s and/or addenda must be made in patient keeper for this note. edits and ammendments created in [facility] are not visible in patient keeper or the legal medical record (hpf). rpt #: [id number] of reportPRProgress [id number]:26:[id number] for patient jsxpMNFJMCBRBDNUKA6847-84-24Q93:28:29 [facility] 2021-11-08 07:20:00 [id number] giqDxx21KcWhnmWweDb8 DQ4+UVOdXxtayLkb1JiG0vCACn+eaKmfBIC68927 -08-30T07:20:00 [facility] med order sheet report #: [id number] report status: signed date: 11/08/21 time: 07 patient: ina farley unit #: [id number] #: [id number] room #: p.0579 bed: 1 : 62 age: 61 sex: f attend: will payan md adm dt: 11/07/21 author: will payan md attention edits and/or addenda must be made in patient keeper for this note. edits and ammendments created in [facility] are not visible in patient keeper or the legal medical record (hpf). discharge medication reconciliation discharge medication listcalcium with vit.d3 dose: po - takes 600mg dailymagnesium oxide tab (nf) (mag ox tab (nf)) dose: takes as needed oral - takes as neededmetformin tab (glucophage tab) dose: takes 2-3x /day oral - takes 2-3x /dayacetaminophen tab (tylenol tab) dose: 1000mg po q6h - for three days then as needednaproxen tab (naprosyn tab) dose: 250 mg po bid - for three days then as neededtramadol tab (ultram tab) dose: 50mg po q4h prn pain scale 4-6, disp: 6 tablet, refills: 0 stopped hospital medicationsdc'd: dextrose 50% 50 ml syringe (d50w 50 ml syringe) 25ml iv asdir prnhypoglycemiadc'd: glucagon inj (glucagon inj) 1mg im asdir prn hypoglycemiaif no iv/enteraldc'd: hydromorphone inj (dilaudid inj) 1mg iv q4h prnbreakthrough pain and npodc'd: insulin (lispro) inj (humalog inj) 0 units gdnwz3yyyt'd: ondansetron inj (zofran inj) 4mg iv q4h prn nausea andvomitingdc'd: petrolatum ophth oint (lacri-lube ophth oint) 1applic right eyeq8h prn dry eyesdc'd: promethazine inj (phenergan inj) 25mg 102 mls/hr iv q4hprn nausea and vomitingin sodium chloride 0.9% (ns) 50mldc'd: sodium chloride 0.9% (ns) 1000ml 100 mls/hr iv dc'd: tramadol tab(ultram tab) 100mg po q4h prn pain scale 7-10dc'd: zolpidem tab (ambientab) 5mg po bedtime prn insomniaelectronically signed in patientkeeper bywill payan on 11/08/21 07:18 electronically signed by will payan md on 11/08/21 at 0720attentio nedit s and/or addenda must be made in patient keeper for this note. edits and ammendments created in [facility] are not visible in patient keeper or the legal medical record (hpf). rpt #: [id number] of reportCLClinical [id number] for patient [id number]:21:19 [facility] 2021-11-07 19:12:00 [id number] -08-29T19:12:00 [facility] ([facility]) gynecology progress note report #: [id number] report status: signed date: 11/07/21 time: 1911 patient: ina farley unit #: [id number] #: [id number] room #: [id number].[id number] bed: 1 : 62 age: 61 sex: f attend: will payan md [facility] dt: 11/07/21 author: will payan md attention edits and/or addenda must be made in patient keeper for this note. edits and ammendments created in [facility] are not visible in patient keeper or the legal medical record ([facility]). -- assessment and plan -- problems: 1: prolapse of vaginal vault after hysterectomya/p: well post op routine care -- subjective -- patient narrative:no complaints -- objective -- vitals (11/06 19:12 - 11/07 19:12):temperature c: 37.2 (36.5 - 37.2)pulse rate 96 (74 - 96)respiratory rate: 20 (16 - 20)bp: 105/67 (104/67 - 118/78) additional v/s:in bed nad indwelling osorio:yes discontinued:no comments:urine clear good output -- data -- medications naloxone hcl 0.04 mg iv pacu q2min prnlabetalol hcl 10 mg iv pacu q5min prnpromethazine hcl with/in sodium chloride 50 ml bag 6.25 mg iv pacu once prnmetformin hcl 500 mg po tidpregabalin 75 mg po pacuhydralazine hcl 10 mg iv pacu q10min prnflumazenil 0.2 mg iv pacu asdir prn morphine sulfate 2 mg iv pacu q5min prnhydromorphone hcl 0.5 mg iv pacu q10min prnoxycodone hcl 5 mg po pacu q4h prnepinephrine 2.25% 0.5 ml neb pacu asdir prnmeperidine hcl 12.5 mg iv pacu once prntramadol hcl 50 mg po q4h prnsodium chloride 0.9% 1000 ml iv pacu iv fluidzolpidem tartrate 5 mg po bedtime prnatropine sulfate 0.5 mg iv pacu q5min prnsodium chloride 0.9% 1000 ml iv .[id number] hcl/pf 4 mg iv q4h prntramadol hcl 100 mg po q4h prnpetrolatum,white 1 applic right eye q8h prnnaproxen 500 mg po bidacetaminophen 1000 mg iv pacuhydromorphone hcl 1 mg iv q4h prnacetaminophen 1000 mg po n3vozxcunca 50%-water 25 ml iv asdir prninsulin lispro 0 units subq [id number] hcl 12.5 mg iv pacu once prnglucagon 1 mg im asdir prnpromethazine hcl with/in sodium chloride 50 ml bag 25 mg iv q4h prn labs glu bed (11/07/21 17:07)glubed 134 h glu bed (11/07/21 13:19)glubed 158 h glu bed (11/07/21 12:02)glubed 175 h glu bed (11/07/21 06:35)glubed 116 h vitals temperature c: 11/07/21 16:57 37.2 11/07/21 16:49 11/07/21 16:19 11/07/21 15:49 11/07/21 14:49 11/07/21 14:34 11/07/21 14:19 11/07/21 14:05 11/07/21 13:49 11/07/21 13:34pulse rate 11/07/21 16:57 96 11/07/21 16:49 88 11/07/21 16:19 85 11/07/21 15:49 82 11/07/21 14:49 85 11/07/21 14:34 77 11/07/21 14:19 79 11/07/21 14:05 85 11/07/21 13:49 86 11/07/21 13:34 78respiratory rate: 11/07/21 16:57 20 11/07/21 16:49 11/07/21 16:19 11/07/21 15:49 11/07/21 14:49 11/07/21 14:34 11/07/21 14:19 11/07/21 14:05 18 11/07/21 13:49 11/07/21 13:34blood pressure: 11/07/21 16:57 105 / 67 11/07/21 16:49 105 / 67 11/07/21 16:19 107 / 69 11/07/21 15:49 104 / 68 11/07/21 14:49 108 / 70 11/07/21 14:34 109 / 73 11/07/21 14:19 115 / 76 11/07/21 14:05 114 / 74 11/07/21 13:49 110 / 71 11/07/21 13:34 106 / 69 signed in patientkeeper by will payan md on 11/07/21 at 19:13 electronically signed by will payan md on 11/07/21 at 1913attentio nedit s and/or addenda must be made in patient keeper for this note. edits and ammendments created in [facility] are not visible in patient keeper or the legal medical record (hpf). [facility] #: [id number] of reportPRProgress [id number]:12:00P.[id number] for patient wnifXODOZVPTGFKSMZ0884-30-45X75:14:18 [facility] 2021-11-07 11:38:00 [id number] gxLwsZ8TCHIc1zy3LiCt xfgDfJE52ZDc4E84Y+5LxDLQ0vGmQbJSvLYV9543 -08-29T11:38:081307-[address] [place] [address] patient name: ina farley admit date: 11/07/21account no: [id number] room no: p.[id number] age: 61 report type: operative report sex: f admitting physician:will payan md attending physician:will payan md operation date: 11/07/2021 preoperative diagnoses: prolapse of vaginal vault after hysterectomy, 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 procedures: laparoscopy with extensive lysis of adhesions, laparoscopic y-meshsacral colpopexy, 30439; combined anterior and posterior repair, 97641;cystoscopy, 31247. 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 surgeon: will payan md oncology physician assistant: mitzi torres, licensed assistant manager bilingual. anesthesia: general endotracheal anesthesia. biopsy: rectocele. complications: none. drains: osorio to gravity. estimated blood loss: 5 ml. urine output: 250 ml. findings: complete reduction of all prolapse. no bladder or ureteral injury. strong jet of urine from each ureter, 50 grams of d50 dextrose placed in thecystoscopic irrigant, 17-central african sheath 70-degree lens used for cystoscopicreview, 250 ml placed in the bladder. photos taken of the ureters and thebladder from the cystoscopic view. complete retroperitonealization of the mesh. no rectal injury and digital rectal exam with rectocele repair, massiveanterior abdominal wall adhesions of omentum and posterior cul-de-sac adhesionsof sigmoid. needle count was incorrect and pelvic and upper abdomen x-rayshowed no surgical needles in the abdomen. procedure in detail: the patient was taken to the operating room where generalendotracheal anesthesia was found to be adequate. she was prepped and draped innormal sterile technique [facility] were activated prior to induction. antibiotics patient name: ina farley were administered. a rod vaginal elevator with ally assist was placed in thevagina. osorio was used to drain the bladder completely. gloves were changed. attention was placed to left upper quadrant. frazier's point was marked with amarking pen, injected with local anesthesia followed by 11-blade skin incision,then a direct 5-mm port entry without incident. with the patient in steeptrendelenburg, the omental adhesions were identified from the umbilicus all theway down into the pelvis. photos were taken. a left lower quadrant port wasplaced and adhesions were initially taken down for access to the pelvis. acamera was moved into the pelvis and there was a window of opportunity forplacement of suprapubic port, which was placed in a similar fashion aspreviously described. placement of the camera there showed no small bowelinvolved in the anterior abdominal wall omental adhesions. harmonic was thenused to take the upper adhesions down. umbilical port was placed as previouslydescribed, then right lower quadrant port as previously described. old scarsfrom abdominoplasty were used for port placement. harmonic was then used totake down the omental adhesions with complete release from the anteriorabdominal wall. attention was then placed to the pelvis and epiploica andsigmoid were adhered to the vagina and anterior cul-de-sac. these were takendown with endoshears with meticulous dissection without compromise to thesigmoid colon. with the colon completely mobilized from the anterior andposterior vagina, the bladder was retrofilled and the peritoneum was opened overthe apex of the vagina and the vesicovaginal space was identified and developed____ 8 cm inferior to the apex of the vagina. the rectovaginal space was thendeveloped with further mobilization of the adhesions from the right pelvicsidewall. the rectovaginal space was developed in the avascular plane withoutincident, and a communication to the right pelvic sidewall peritoneum was openedcompleting the posterior dissection. attention was placed to the sacralpromontory where the peritoneum was opened with direct visualization of theureter and sigmoid all the way down to the medial longitudinal ligament, whichwas exposed 2 x 2 cm and a photo was taken. the peritoneum of the rightparacolic gutter was then opened and the retroperitoneal space dissected. theperitoneal communication was then connected to the uterosacral dissection fromthe right side with direct visualization of the ureter, sigmoid, and rectum. attention was then placed to the anterior compartment for the cystocele repair. horizontal mattress sutures were placed with 2-0 vicryl in the anteriorcompartment; first suture placed at the apex, the other approximately 4 cmdistally. four sutures were placed in the anterior compartment, followed byextracorporeal knot tying to reduce the cystocele in the anterior compartment. with all 4 sutures tied, the mesh was then introduced after measuring theanterior and posterior compartment and applied to the anterior and posteriorvagina with a combination of 2-0 ethibond and 2-0 vicryl sutures. with the meshcompletely applied to the vagina, the vagina was then elevated maximally andthen reduced by 2 cm. protack was used to secure the mesh at the sacralpromontory, folding the mesh over on itself to reduce the footprint at thesacral promontory. three tacks were placed. excess mesh was trimmed. theperitoneum was then closed with 2-0 v-loc suture with completeretroperitonealization of the mesh. the initial count was not correct. theneedle count was 34. the surgical needle packs and needle count on the fieldwas 36. we had 2 additional needles on the field, which could not be accountedfor. cystoscopy was performed showing a strong jet of urine from each ureterand no compromise to the bladder. osorio was replaced. at that time, all portswere removed after one last laparoscopic review showed no bleeding or hematomaformation, and a photo taken of the completely retroperitonealized mesh. x-rayswere performed of the abdomen and pelvis showing no surgical needle in the patient name: ina farley abdomen or pelvis. attention was then placed to the rectocele. the perinealbody was marked with a marking pen, followed by #15 blade scalpel for skinincision and removal of the perineal skin and distal rectocele, vaginal skinwith bovie cautery followed by undermining the rectocele in the midline withmetzenbaum scissors, mobilizing the rectocele, followed by horizontal mattresssutures placed after clean glove digital rectal exam confirmed no buttonhole ofthe rectum. after all sutures were placed in a horizontal mattress fashion,clean glove digital rectal exam again showed no compromise to the rectum. sutures were then tied reducing the rectocele. the rectocele vaginal epitheliumwas trimmed with complete reduction of the rectocele and reinforcement of theperineal body with 0 vicryl, 2-0 vicryl was then used to close the vaginal skinand perineal body. this was completely hemostatic. osorio had been replaced. each port site was injected with local anesthesia followed by 4-0 monocryl anddermabond for final skin closure. sponge and instrument count was correct atthat point with review of x-rays confirming no surgical needle in the abdomenand pelvis. the patient was reversed from anesthesia and transferred to thepostanesthesia care unit in stable condition. dictated by: will payan md wt: op:prick/domingoych/ntsdd: 11/07/2021 11:38:10dt: 11/07/2021 13:42:08conf#: [id number]/did#: [id number] authenticated by will payan md on 11/07/2021 04:30:01 pm electronically signed by will payan md on 11/07/21 at 0430 patient name: ina farley [id number]:42:00P.[id number] [id number] for patient zizfGLQKYRMKFIBRTW7807-96-06M05:30:33 [facility] 2021-11-07 11:27:00 [id number] c1VemJT3PhgxdaLjdy15 +8WrD8BUt3tdIS9MYyl5db9rcltZt0VYWOcA6570 -08-29T11:27:00 [facility] ([facility]) med order sheet report #: [id number] report status: signed date: 11/07/21 time: 1127 patient: ina farley unit #: [id number] #: [id number] room #: bed: : 61 age: 61 sex: f attend: will payan md adm dt: 11/07/21 author: will payan md attention edits and/or addenda must be made in patient keeper for this note. edits and ammendments created in [facility] are not visible in patient keeper or the legal medical record (hpf). admission medication reconciliation -- continued / changed home medications -- home: metformin tab (glucophage tab) oral (takes 2-3x /day)hosp: metformin tab (glucophage tab) 500 mg oral starting in am tomorrow day - takes 2-3x /day -- stopped home medications -- home: calcium with vit.d3 (takes 600mg daily) home: magnesium oxide tab (nf) (mag ox tab (nf)) oral (takes as needed) electronically signed in patientkeeper by will payan on 11/07/2210:26 electronically signed by will payan md on 11/07/21 at 1127attentio nedit s and/or addenda must be made in patient keeper for this note. edits and ammendments created in [facility] are not visible in patient keeper or the legal medical record (hpf). [facility] #: [id number] of reportCLClinical [id number]:27:00P.[id number] -[id number] for patient dxqaFDROCECNFDTRQZ3870-14-49P78:27:40 [facility] 2021-11-07 11:24:00 [id number]/ EXYCPPTImx4HjIptQMw1 OvX7fuY1hl64qDwNtpzYwK4Rk6QVJ2rc3OTT8015 -08-29T11:24:00 [facility] ([facility]) brief operative report report #: [id number] report status: signed date: 11/07/21 time: 1124 patient: ina farley unit #: [id number] #: [id number] room #: bed: : 61 age: 61 sex: f attend: will payan md adm dt: 11/07/21 author: will payan md attention edits and/or addenda must be made in patient keeper for this note. edits and ammendments created in [employer] are not visible in patient keeper or the legal medical record (hpf). -- brief op note -- pre-operative diagnosis:pvvaf, cystocele, rectocele post-operative diagnosis:same with severe pelvic adhesions name of procedure:l-scope extensive jaxson, y-mesh sacral colpopexy, a p repair cystoscopy surgeon:will payan md oncology physician assistant(s):fabiano torres lfa findings:no gu or gi injury complete reduction pop, mesh retroperitoneal estimated blood loss (ml's):5 specimen(s) removed and/or altered:rectocele complication(s):none drain(s):devon signed in patientkeeper by will payan md on 11/07/21 at 11:26 electronically signed by will payan md on 11/07/21 at 1126attentio nedit s and/or addenda must be made in patient keeper for this note. edits and ammendments created in [employer] are not visible in patient keeper or the legal medical record (hpf). [facility] #: [id number] of reportOPOperative [id number]:24:00P.[id number] for patient prphWOPNDLVDQBIZDK3897-32-08O74:27:09 [facility] 2021-11-04 09:01:00 [id number] Beh1zjIEi3Pdf2pMJ8kZ [id number]+W0dW6DRKPWcRpJGd8583 -08-26T09:01:921009-2817 [facility] [address] [place] [address] patient name: ina farley admit date: 11/07/21account no: [id number] room no: age: 61 report type: preop hp report sex: f admitting physician: attending physician:will payan md admission date: 11/07/2021 date of planned procedure: 11/07/2021 preoperative diagnoses: 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 planned procedure: will be laparoscopy with planned y-mesh sacrocolpopexy,56806; combined anterior and posterior repair, 37002; and cystoscopy, 59156. chief complaint: prolapse. history of present illness: the patient presented for consultation with atleast 7-month history of progressively worsening prolapse associated with pelvicpain. she presented with a photograph showing prolapse extending to 1 cm pastthe hymen. she also reported mixed urinary incontinence symptoms. she has ahistory of 4 vaginal deliveries and an abdominal hysterectomy with removal ofher fallopian tubes and ovaries in 2003, for fibroids. past medical history: significant for diabetes. past surgical history: tubal sterilization, tubal reversal, hysterectomy withbso, breast lift abdominoplasty, cholecystectomy, and knee surgery. habits: she does not use alcohol. she has never been a smoker. allergies: no known drug allergies. medications: trazodone 50 mg at bedtime and metformin 500 mg once daily. review of systems:constitutional: denies weight change, lethargy, or fatigue.heent: denies head, ears, eyes, nose, or throat concerns.pulmonary: denies coughing, wheezing, or shortness of breath.cardiovascular: denies chest pain, palpitations, or irregular heartbeat.gastrointestinal: denies nausea, vomiting, diarrhea, or constipation.musculoskeletal: denies aches or pains in her distal muscle or joints.neurological: denies weakness, numbness, dizziness, or other deficits.psychological: denies anxiety or depression. physical examination:general appearance: she appears her stated age and in no apparent distress. she is a good historian. patient name: ina farley vital signs: she is 64 inches tall. she weighs 173 pounds giving her a bmi of30. blood pressure 121/84, temperature 97.6, heart rate 60 beats per minute,and oxygen saturation 96% on room air.heent: normocephalic and atraumatic.lungs: clear to auscultation bilaterally.heart: s1and s2 and regular.abdomen: soft and nontender with healed abdominoplasty scars.extremities: normal motor function and toneneurologically: intact.psychological: no anxiety or depression.pelvic: she had normal female external genitalia with mild atrophy. urethrawas with hypermobility. negative supine empty stress test. bladder wasnontender. vagina was without abnormal discharge with atrophy. pop-q score aa0, ba +1, c -4, ap -1, bp -1, total vaginal length 9, perineal body 2.5, andgenital hiatus 4.5. perirectal skin normal. levator ani nontense, nontenderbilaterally. elevation of the apex did not reduce prolapse in the anteriorcompartment. laboratory data: preoperative laboratory evaluation included urodynamicsevaluation on 09/27/2021, she did not have a stress incontinence event. preoperative blood work dated , co2 24, glucose 116, bun 10,creatinine 0.6, calcium 8.8, sodium 141, potassium 4.2, and chloride 103. hemoglobin 14.4, hematocrit 41.8, wbc 9.7, and platelets 463. impression: previously stated symptomatic pelvic organ prolapse for definitivesurgical therapy. the patient understood risks, benefits, limitations forprocedure to be performed as an outpatient overnight stay. she was advised tovarious treatment options and opted for mesh sacrocolpopexy and mesh colpopexy. consents were signed in the office. the patient also understood she would nothave an anti-incontinence procedure performed based on her physical examinationand urodynamics findings. dictated by: will payan md wt: preophp:prick/chapincito/ntsdd: 11/04/2021 09:01:31dt: 11/04/2021 10:26:35conf#: [id number]/did#: [id number] by will payan md on 11/07/2021 11:23:10 am electronically signed by will payan md on 11/07/21 at 1123 patient name: ina farley and physical ljutgplllcg6187-85-57S23:26:00P.[id number] for patient uhvxVSWTJTUYGNETFB7499-91-28Y04:23:50 [facility]"
[2023-08-09] MEDS ORDERED: NA CHLORIDE 0.9% 500 ML ONE (12:40)
--- NOTE | 2023-08-09 13:05 | RAD REPORT ---
EXAM DESCRIPTION: CT - Head Brain Wo Cont - 08/09/2023 12:47 pm CLINICAL HISTORY: tingling body wide Headache, drowsiness COMPARISON: <Comparisons> TECHNIQUE: All CT scans are performed using dose optimization technique as appropriate and may inclu de automated exposure control or mA/KV adjustment according to patient size. FINDINGS: No intracranial hemorrhage, hydrocephalus or extra-axial fluid collection.No areas of brai n edema or evidence of midline shift. The paranasal sinuses and mastoids are clear separate 2 cm right maxillary sinus mucous retention cys t. . The calvarium is intact. IMPRESSION: No acute intracranial abnormality.
[2023-08-09 13:16] LABS: Absolute Basophils 0.1 K/uL (0-0.5); Absolute Eosinophils 0.1 K/uL (0-0.5); Absolute Lymphocytes (CBC) 2.2 K/uL (0.7-4.9); Absolute Monocytes 0.5 K/uL (0.1-1.3); Absolute Neutrophil 4.1 K/uL (1.8-8.0); Basophils % 0.9 % (0-1.3); Eosinophils % 1.1 % (0-4.4); Hemoglobin 13.1 g/dL (12.0-15.0); Lymphocytes % 31.2 % (15.3-44.8); MCH 27.5 pg (27.0-35.0); MCHC 32.6 g/dL (32.0-36.0); MCV 84.4 fL (80-100); MPV 7.4 fL (7.6-11.3); Monocytes % 6.9 % (3.3-12.3); Neutrophils % 59.9 % (41.7-73.7); Platelets 378 thou/uL (152-406); RBC Red Blood Cell Count 4.74 M/uL (3.86-4.86); Red Cell Distribution Width 13.7 % (12.1-15.2)
[2023-08-09 13:28] LABS: Albumin 3.5 g/dL (3.4-5.0); Albumin/Globulin Ratio 0.9 (1.1-1.8); Anion Gap 6.7 mEq/L (5.0-15.0); Bilirubin Direct 0.2 mg/dL (0-0.2); Bilirubin Indirect, Calculated 0.7 mg/dL (0.2-0.8); Bilirubin Total 0.9 mg/dL (0.2-1.0); Globulin 3.9 g/dL (2.3-3.5); Magnesium 1.8 mg/dL (1.6-2.4); Potassium 3.7 mEq/L (3.5-5.1); Protein, Total 7.4 g/dL (6.4-8.2); Troponin High Sensitivity 3.5 pg/mL (<58.9)
--- NOTE | 2023-08-09 13:35 | EDPHYS ---
Physician Documentation [facility] Name: Omayra Mancia Age: 63 yrs Sex: Female : 1960 Arrival Date: 08/09/2023 Time: 12:02 Bed 13 Private MD: ED Physician Hetal Jeffery HPI: 08/08 12:38 This 63 yrs old Female presents to ER via Ambulatory with complaints of sp3 Numbness of whole body and fatigue. 12:38 63-year-old female with history of diabetes, prior CVA, bronchitis now presents to the sp3 ED with chief complaint "tingling all over my body" and fatigue. Patient states she also has a new history of fibromyalgia and possible rheumatoid arthritis for which she is seeing the heat set operator for. She denies any focal numbness or weakness, speech changes, memory loss, change in ability to walk, loss of bowel or bladder control, headache, trauma, chest pain, shortness of breath, syncope, near syncope, travel history, known sick contacts, fever, or any other signs or symptoms on ROS at this time.. Historical: - Allergies: 12:08 No Known Allergies; ll1 - PMHx: 12:08 Bronchitis; Diabetes mellitus; Cerebrovascular accident; 2020; ll1 - Immunization history:: Adult Immunizations up to date. - Infectious Disease History:: Denies. - Social history:: Smoking status: Patient denies any tobacco usage or history of. ROS: 12:39 Constitutional: Negative for fever, chills, and weight loss, Eyes: Negative for injury, sp3 pain, redness, and discharge, ENT: Negative for injury, pain, and discharge, Neck: Negative for injury, pain, and swelling, Cardiovascular: Negative for chest pain, palpitations, and edema, Respiratory: Negative for shortness of breath, cough, wheezing, and pleuritic chest pain, Abdomen/GI: Negative for abdominal pain, nausea, vomiting, diarrhea, and constipation, Back: Negative for injury and pain, MS/Extremity: Negative for injury and deformity, Skin: Negative for injury, rash, and discoloration, Psych: Negative for depression, anxiety, suicide ideation, homicidal ideation, and hallucinations, Allergy/Immunology: Negative for hives, rash, and allergies, Endocrine: Negative for neck swelling, polydipsia, polyuria, polyphagia, and marked weight changes, Hematologic/Lymphatic: Negative for swollen nodes, abnormal bleeding, and unusual bruising, 12:39 All other systems are negative, Exam: 12:39 Constitutional: This is a well developed, well nourished patient who is awake, alert, sp3 and in no acute distress. Head/Face: Normocephalic, atraumatic. Eyes: Pupils equal round and reactive to light, extra-ocular motions intact. Lids and lashes normal. Conjunctiva and sclera are non-icteric and not injected. Cornea within normal limits. Periorbital areas with no swelling, redness, or edema. ENT: Nares patent. No nasal discharge, no septal abnormalities noted. External auditory canals are clear. Oropharynx with no redness, swelling, or masses, exudates, or evidence of obstruction, uvula midline. Mucous membranes moist. Neck: Trachea midline, no thyromegaly or masses palpated, and no cervical lymphadenopathy. Supple, full range of motion without nuchal rigidity, or vertebral point tenderness. No Meningismus. Chest/axilla: Normal chest wall appearance and motion. Nontender with no deformity. No lesions are appreciated. Cardiovascular: Regular rate and rhythm with a normal S1 and S2. No gallops, murmurs, or rubs. Normal PMI, no JVD. No pulse deficits. Respiratory: Lungs have equal breath sounds bilaterally, clear to auscultation and percussion. No rales, rhonchi or wheezes noted. No increased work of breathing, no retractions or nasal flaring. Abdomen/GI: Soft, non-tender, with normal bowel sounds. No distension or tympany. No guarding or rebound. No evidence of tenderness throughout. Back: No spinal tenderness. No costovertebral tenderness. Full range of motion. Skin: Warm, dry with normal turgor. Normal color with no rashes, no lesions, and no evidence of cellulitis. MS/ Extremity: Pulses equal, no cyanosis. Neurovascular intact. Full, normal range of motion. Neuro: Awake and alert, GCS 15, oriented to person, place, time, and situation. Cranial nerves II-XII grossly intact. Motor strength 5/5 in all extremities. Sensory grossly intact. Cerebellar exam normal. Normal gait. Psych: Awake, alert, with orientation to person, place and time. Behavior, mood, and affect are within normal limits. 13:12 ECG was reviewed by the Attending Physician. EKG demonstrates normal sinus rhythm at 86 sp3 bpm with normal intervals, normal QRS, normal axis, normal ST's ST segments without evidence of acute ischemia. Vital Signs: 12:07 BP 134 / 96; Pulse 109; Resp 16; Temp 98; Pulse Ox 99% ; ll1 13:16 BP 123 / 83; Pulse 88; Resp 18; Pulse Ox 99% on R/A; rs5 NIH Stroke Scale Scores: 12:10 NIHSS Score: 0 ll1 MDM: 12:19 Patient medically screened. sp3 12:39 Data reviewed: vital signs, nurses notes, old medical records, lab test result(s), EKG, sp3 radiologic studies. ED course: 63-year-old female with PMH above now with vague symptoms of fatigue and "tingling all over". I do not believe patient is having acute CVA. Differential diagnosis includes viral syndrome, electrolyte abnormality, fibromyalgia, and to lesser degree TIA/CVA. Clinically have ruled out sepsis, shock, acute coronary syndrome, or any other critical pathology. Completely normal neurological exam. If workup is negative, we will discharge patient home with PCP follow-up.. 13:34 ED course: Full workup negative. We will safely discharge patient home at this time sp3 with follow-up to PCP.. 05 12:34 Order name: Basic Metabolic Panel; Complete Time: 13:34 sp3 08/08 12:34 Order name: CBC with Diff; Complete Time: 13:27 sp3 08/08 12:34 Order name: LFT's; Complete Time: 13:34 sp3 08/08 12:34 Order name: Magnesium; Complete Time: 13:34 sp3 08/08 12:34 Order name: Troponin HS; Complete Time: 13:34 sp3 08/08 12:34 Order name: CT Head Brain wo Cont; Complete Time: 13:07 sp3 08/08 12:34 Order name: EKG; Complete Time: 12:34 sp3 08/08 12:34 Order name: EKG - Nurse/Tech; Complete Time: 13:15 sp3 08/08 12:34 Order name: IV Saline Lock; Complete Time: 13:15 sp3 08/08 12:34 Order name: Labs collected and sent; Complete Time: 13:15 sp3 Administered Medications: 12:45 Drug: NS 0.9% IV 500 ml IV at bolus once Route: IV; Rate: bolus; Site: right rs5 antecubital; 13:17 Follow up: Response: No adverse reaction rs5 Disposition Summary: 08/09/23 13:35 Discharge Ordered Notes: Location: Home sp3 Condition: Stable sp3 Diagnosis - Fatigue, fibromyalgia, paresthesia sp3 Followup: sp3 - With: Private Physician - When: Upon discharge from the Emergency Department - Reason: Continuance of care Discharge Instructions: - Discharge Summary Sheet sp3 - Fatigue sp3 Forms: - Medication Reconciliation Form sp3 - Antibiotic Education sp3 - Prescription Opioid Use sp3 - Patient Portal Instructions sp3 - Leadership Thank You Letter sp3 NIH Stroke Scale - NIH Stroke Score Date: 08/09/2023 Time: 12:10 Total Score = 0 10. Dysarthria (speech clarity - read or repeat words) - 0(Normal) 11. Extinction and Inattention (visual/tactile/auditory/spatial/personal) - 0(No abnormality) 1a. Level of Consciousness (LOC) - 0(Alert) 1b. Level of Consciousness (LOC) (Month \\T\\ Age) - 0(Both) 1c. LOC Commands (Open \\T\\ Closes Eyes/Vacuum Cleaner Repair Person) - 0(Both) 2. Best Gaze (Lateral Gaze Paresis) - 0(Normal) 3. Visual Field Loss - 0(No visual loss) 4. Facial Palsy - 0(Normal) 5a. Left Arm: Motor (10-second hold) - 0(No drift) 5b. Right Arm: Motor (10-second hold) - 0(No drift) 6a. Left Leg: Motor (5-second hold - always test supine) - 0(No drift) 6b. Right Leg: Motor (5-second hold - always test supine) - 0(No drift) 7. Limb Ataxia (finger/nose \\T\\ heel/shipman - test with eyes open) - 0(Absent) 8. Sensory Loss (pinprick arms/legs/face) - 0(Normal) 9. Best Language: Aphasia (description/naming/reading) - 0(No aphasia) Initials: ll1 Signatures: Dispatcher [employer] EDDestinee Baker RN RN ll1 Hetal Jeffery MD MD sp3 Reynolds, Esteban, RN RN rs5 Corrections: (The following items were deleted from the chart) 12:34 12:34 BASIC METABOLIC PANEL+C.LAB.BRZ ordered. EDMS EDMS 12:34 12:34 CBC+H.LAB.BRZ ordered. EDMS EDMS 12:34 12:34 HEPATIC FUNCTION+C.LAB.BRZ ordered. EDMS EDMS 12:34 12:34 MAGNESIUM+C.LAB.BRZ ordered. EDMS EDMS 12:34 12:34 Troponin High Sensitivity+C.LAB.BRZ ordered. EDMS EDMS
--- NOTE | 2023-08-09 13:35 | ER ---
Nurse's Notes [facility] Name: Omayra Mancia Age: 63 yrs Sex: Female : 1960 Arrival Date: 08/09/2023 Time: 12:02 Bed 13 Private MD: Diagnosis: Fatigue, fibromyalgia, paresthesia Presentation: 08/08 12:07 Chief complaint: Patient states: WHOLE FACE NUMBNESS x3 DAYS, NOW WHOLE BODY. ll1 Coronavirus screen: At this time, the client does not indicate any symptoms associated with coronavirus-19. Ebola Screen: No symptoms or risks identified at this time. Initial Sepsis Screen: Does the patient meet any 2 criteria? HR > 90 bpm. No. Patient's initial sepsis screen is negative. Does the patient have a suspected source of infection? No. Patient's initial sepsis screen is negative. Risk Assessment: Do you want to hurt yourself or someone else? Patient reports no desire to harm self or others. Onset of symptoms is unknown. 12:07 Method Of Arrival: Ambulatory ll1 12:07 Acuity: FATMATA 3 ll1 Triage Assessment: 12:08 General: Appears distressed, Behavior is cooperative, appropriate for age, anxious. ll1 Pain: Denies pain. EENT: No deficits noted. Neuro: Level of Consciousness is awake, alert, obeys commands, Oriented to Appropriate for age Instrument Technologist are equal bilaterally Moves all extremities. Full function Speech is normal. Cardiovascular: No deficits noted. Respiratory: No deficits noted. GI: No signs and/or symptoms were reported involving the gastrointestinal system. : No signs and/or symptoms were reported regarding the genitourinary system. Derm: No deficits noted. Musculoskeletal: No deficits noted. Historical: - Allergies: 12:08 No Known Allergies; ll1 - PMHx: 12:08 Bronchitis; Diabetes mellitus; Cerebrovascular accident; 2020; ll1 - Immunization history:: Adult Immunizations up to date. - Infectious Disease History:: Denies. - Social history:: Smoking status: Patient denies any tobacco usage or history of. Screenin:10 [facility] ED Fall Risk Assessment (Adult) History of falling in the last 3 months, ll1 including since admission No falls in past 3 months (0 pts). Abuse screen: Denies threats or abuse. Denies injuries from another. Nutritional screening: No deficits noted. Tuberculosis screening: No symptoms or risk factors identified. Assessment: 12:10 General: Appears in no apparent distress. Behavior is cooperative, appropriate for age, rs5 anxious. 12:10 Pain: Denies pain. Neuro: Level of Consciousness is awake, alert, obeys commands, rs5 Oriented to person, place, time, situation, Reports numbness in face. Cardiovascular: Patient's skin is warm and dry. Respiratory: Respiratory effort is even, unlabored, Respiratory pattern is regular, symmetrical. GI: Abdomen is round non-distended, Abd is soft and non tender X 4 quads. : No signs and/or symptoms were reported regarding the genitourinary system. EENT: No signs and/or symptoms were reported regarding the EENT system. Derm: Skin is intact, Skin is pink, warm \T\ dry. Musculoskeletal: Range of motion: intact in all extremities. 13:16 Reassessment: Patient and/or family updated on plan of care and expected duration. Pain rs5 level reassessed. Patient is alert, oriented x 3, equal unlabored respirations, skin warm/dry/pink. 13:45 Reassessment: No changes from previously documented assessment. rs5 Vital Signs: 12:07 BP 134 / 96; Pulse 109; Resp 16; Temp 98; Pulse Ox 99% ; ll1 13:16 BP 123 / 83; Pulse 88; Resp 18; Pulse Ox 99% on R/A; rs5 NIH Stroke Scale Scores: 12:10 NIHSS Score: 0 ll1 ED Course: 12:03 Patient arrived in ED. im 12:08 Triage completed. ll1 12:08 Arm band placed on. ll1 12:10 Patient has correct armband on for positive identification. ll1 12:10 No provider procedures requiring assistance completed. rs5 12:11 Hetal Jeffery MD is Attending Physician. sp3 12:20 Esteban Reynolds, JOLLY is Primary Nurse. rs5 12:48 CT Head Brain wo Cont In Process Unspecified. EDMS 13:50 IV discontinued, intact, bleeding controlled, No redness/swelling at site. Pressure rs5 dressing applied. Administered Medications: 12:45 Drug: NS 0.9% IV 500 ml IV at bolus once Route: IV; Rate: bolus; Site: right rs5 antecubital; 13:17 Follow up: Response: No adverse reaction rs5 Medication: 13:16 VIS not applicable for this client. rs5 Outcome: 13:35 Discharge ordered by . sp3 13:50 Discharged to home ambulatory, rs5 13:50 Condition: stable 13:50 Discharge instructions given to patient, family, Instructed on discharge instructions, follow up and referral plans. Demonstrated understanding of instructions, 13:52 Patient left the ED. rs5 NIH Stroke Scale - NIH Stroke Score Date: 08/09/2023 Time: 12:10 Total Score = 0 10. Dysarthria (speech clarity - read or repeat words) - 0(Normal) 11. Extinction and Inattention (visual/tactile/auditory/spatial/personal) - 0(No abnormality) 1a. Level of Consciousness (LOC) - 0(Alert) 1b. Level of Consciousness (LOC) (Month \T\ Age) - 0(Both) 1c. LOC Commands (Open \T\ Closes Eyes/Customer Solutions Teammate) - 0(Both) 2. Best Gaze (Lateral Gaze Paresis) - 0(Normal) 3. Visual Field Loss - 0(No visual loss) 4. Facial Palsy - 0(Normal) 5a. Left Arm: Motor (10-second hold) - 0(No drift) 5b. Right Arm: Motor (10-second hold) - 0(No drift) 6a. Left Leg: Motor (5-second hold - always test supine) - 0(No drift) 6b. Right Leg: Motor (5-second hold - always test supine) - 0(No drift) 7. Limb Ataxia (finger/nose \T\ heel/shipman - test with eyes open) - 0(Absent) 8. Sensory Loss (pinprick arms/legs/face) - 0(Normal) 9. Best Language: Aphasia (description/naming/reading) - 0(No aphasia) Initials: ll1 Signatures: Dispatcher [employer] EDDestinee Baker RN RN ll1 Hetal Jeffery MD MD sp3 Esteban Reynolds RN RN rs5 Suzy Barrera Corrections: (The following items were deleted from the chart) 13:16 12:10 General: Appears in no apparent distress. Behavior is cooperative, rs5 appropriate for age, anxious, ll1
[2023-08-09 14:21] VITALS: BP 123/83; TEMP 98; O2SAT 99
--- NOTE | 2023-08-10 16:52 | EKG ---
Test Date: 2023-08-09 Test Time: 12:58:01 [place]: SONIA MEASUREMENT RESULTS: Intervals: Rate: 86 IA: 168 QRSD: 82 QT: 346 QTc: 414 [place]: P: 39 IA: 168 QRS: 9 T: 11 INTERPRETIVE STATEMENTS: Normal sinus rhythm Normal ECG Compared to ECG 10/15/2020 08:46:31 T-wave abnormality no longer present Possible ischemia no longer present Electronically Signed On 08-10-23 16:48:50 CDT by Notrh Navarro
== END 2023-08-09 13:52 | disposition home or self-care (01) ==
LOC: ER 12:02
DX: M79.7 Fibromyalgia (principal); R20.2 Paresthesia of skin
CPT/HCPCS: 93005; 85025; 80048; 36415; 83735; 80076; 84484; 70450; 99284; J7040

== ENCOUNTER 2024-06-21 09:04 | Inpatient (IN) | payer OTHER ==
--- OUTSIDE RECORDS SUMMARY | 2024-06-21 09:12 | XMS REPORT | Continuity of Care Document ---
Author Name Unknown Address [address] [facility] [place] [address] Organization [facility] Address [address] [facility] [place] [address] Care Team Providers Care Compensation Coordinator Name Role Phone Jewels Tran Primary Care Physician CINTHIA MARTINEZ Attending Clinician Unavailable CATHY KHAN Attending Clinician Unavailable SILAS HANDLEY Attending Clinician Unavailable ANA GRECO Attending Clinician Unavailab le LAB90 Attending Clinician Unavailable [id number] Attending Clinician Unavailable DEVANG BURRIS Attending Clinician Unava ilable REX MELCHOR Attending Clinician Unavailable MITZI GILLIAM Attending Clinician Unavailable AINSLEY BETANCOURT Attending Clinician Unavailab tabatha MATIAS MD Attending Clinician Unavailab SAJI Rodriguez Attending Clinician Unava ilable KAYLA ALBERTS Attending Clinician Unavailable AINSLEY LAWTON Attending Clinician Unavailab AARON Resendiz Attending Clinician Unavailab le LAB45 Attending Clinician Unavailable MARJORIE FLORES Attending Clinician Unavailable AINSLEY ABERNATHY Attending Clinician Unavailable EBONY DO Attending Clinician Unavailable JEFFREY GOLDEN Attending Clinician Unavail NITA Mendoza Attending [place] Unavailable MILAGRO MORRIS Attending Clinician Unavailab RIK Dave Attending Clinician Unavaila ble NOCK, HUGH Attending Clinician Unavailable TOMOGRAPHY, CK OPTICAL COHERENCE Attending Clini Will Hairston Attending Clinician Unavail able GREGORIO_SWCHRISTIANO_[place] Attending Clinician Charline Triana MD Attending Clinician Sarita Fu MA Attending Clinician UnavailWill Spence Admitting Clinician Unavail able UNDEFINED Admitting Clinician Unavailable ALYSSIA_[place] Admitting Clinician Unavailab mays Payers Payer Name Policy Type Policy Number Effective Date Expirati on Date Source [facility] SILVER-C COPAY FOCUS 9 [id number] 2023 00:00:00 SILVER S ANALYTIC MANAGER 94 [id number] 2024 00:00:00 [facility] [id number] 2021 00:00:00 Problems Condition Name Condition Details Condition Category Status Onset Date Resolution Date Last Treatment Date Treating Clinician Comments Source 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) Disease Active 2-12 00:00: 00 Nita Seybold - Externa l Gastroesop hageal reflux disease without esophagiti s Gastroesop hageal reflux disease without esophagiti s Disease Active 2023-03 0-18 00:00: 00 Nita Guptaold - Externa l Urge incontinen ce Urge incontinen ce Disease Active 2023-03 0-16 00:00: 00 Nita Guptaold - Externa l OAB (overactiv e bladder) OAB (overactiv e bladder) Disease Active 2023-03 0-16 00:00: 00 Nita Ortegaybold - Externa l URI (upper respirator y infection) URI (upper respirator y infection) Disease Active 3-06 00:00: 00 Nita Guptaold - Externa l Pulmonary nodule Pulmonary nodule Disease Active 3-06 00:00: 00 Nita Guptaold - Externa l Left lower quadrant abdominal pain Left lower quadrant abdominal pain Disease Active 2-07 00:00: 00 Nita Pratt - Externa l Acute pain of right shoulder Acute pain of right shoulder Disease Active 2022-03 0-10 00:00: 00 Nita Murphy Externa jarek Statin intoleranc e Statin intoleranc e Disease Active 08-31 00:00: 00 Nita Murphy Externa jarek 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 (multi HCC) 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 (multi HCC) Disease Active 06-01 00:00: 00 Nita Murphy Externa jarek Diabetes mellitus type 2 without retinopath y Diabetes mellitus type 2 without retinopath y Disease Active 06-01 00:00: 00 Nita Murphy Externa jarek Arthralgia of both lower legs Arthralgia of both lower legs Disease Active 05-31 00:00: 00 Nita Murphy Externa jarek Screen for colon cancer Screen for colon cancer Disease Active 05-31 00:00: 00 Nita Murphy Externa jarek History of colon polyps History of colon polyps Disease Active 05-31 00:00: 00 Nita Murphy Externa jarek Arthralgia of both lower legs Arthralgia of both lower legs Disease Active 05-31 00:00: 00 Nita Murphy Externa jarek Urinary incontinen ce Urinary incontinen ce Disease Active 05-31 00:00: 00 Nita Murphy Externa jarek DM type 2 with diabetic mixed hyperlipid emia (multi HCC) DM type 2 with diabetic mixed hyperlipid emia (multi HCC) Disease Active 05-15 00:00: 00 Nita Murphy Externa jarek PVD (periphera l vascular disease) PVD (periphera l vascular disease) Disease Active 05-15 00:00: 00 Nita Murphy Externa jarek Primary insomnia Primary insomnia Disease Active 05-15 00:00: 00 Nita Murphy Externa jarek History of depression History of depression Disease Active 05-15 00:00: 00 Nita Murphy Externa jarek Chronic bilateral low back pain without sciatica Chronic bilateral low back pain without sciatica Disease Active 05-15 00:00: 00 Nita Pratt - Externa l Pain in both hands Pain in both hands Disease Active 3 00:00: 00 Nita Pratt - Externa l History of cardioembo lic cerebrovas cular accident (CVA) History of cardioembo lic cerebrovas cular accident (CVA) Disease Active 1- 00:00: 00 Nita Pratt - Externa l Allergies, Adverse Reactions, Alerts Allergy Name Allergy Type Status Severity Reaction(s) Onset Date Inactive Date Treating Clinician Comments Source Duloxeti ne Hcl Propensi ty to adverse reaction s to drug Active Anxiety 6 00:00: 00 Nita Pratt - Externa l Codeine Propensi ty to adverse reaction s Active Nausea and Vomiting 2 00:00: 00 Nita Pratt - Externa l Tramadol Propensi ty to adverse reaction s Active Nausea and Vomiting 2 00:00: 00 Nita Murphy Externa l No Known Allergie s DA Active U 8 00:00: 00 [facility] Social History Social Habit Start Date Stop Date Quantity Comments Source Exposure to SARS-CoV-2 (event) Not sure [facility] Gender identity Naomi Pratt - External Sexual orientation Teagan Pratt - External ASSERTION Not Nita Pratt - External History of Occupation Nita Pratt - External Alcoholic beverage intake 2024-06-19 00:00:00 2024-06-19 00:00:00 Lifetime non-drinker (finding) Nita Pratt - External Alcohol intake 2023-05-16 00:00:00 2023-05-16 00:00:00 Lifetime non-drinker (finding) Nita Pratt - External History of Social function 2022-11-27 00:00:00 2022-11-27 00:00:00 Nita Pratt - External Education 2022-05-31 00:00:00 2022-05-31 00:00:00 16 Nita Pratt - External Tobacco use and exposure 2022-05-15 00:00:00 2022-05-15 00:00:00 Smokeless tobacco non-user Nita Pratt - External Sex 2022-03-30 13:24:17 2022-03-30 13:24:17 Female (finding) Nita Cheema Sex assigned at 1960 00:00:00 1960 00:00:00 Nita Cheema Smoking Status Start Date Stop Date Source Never smoked tobacco Nita Cheema Medications Ordered Medication Name Filled Medication Name Start Date Stop Date Current Medication? Ordering Clinician Indication Dosage Frequency Signature (SIG) Comments Components Source Aspirin (Aspirin 81) 81 MG oral Tablet Delayed Response 06-19 09:43: 40 Yes 81mg QD Take 1 tablet (81 mg total) by mouth daily. Nita Jensena jarek Zinc 50 MG oral Tablet 06-19 09:12: 05 Yes 1{tbl} QD Take 1 tablet by mouth daily. Nita tilley Multiple Vitamins-Mi nerals (ICAPS AREDS 2 OR) 06-19 09:12: 05 Yes 1{tbl} Q.5D Take 1 tablet by mouth in the morning and 1 tablet in the evening. Nita Jensena jarek Chappell-3 Fatty Acids (Fish Oil) 1000 MG oral Capsule 06-19 09:12: 05 Yes 1000mg QD Take 1 capsule (1,000 mg total) by mouth daily. Nita tilley Atorvastati n Calcium 20 MG oral Tablet 06-19 00:00: 00 Yes [id number] 3 20mg QD Take 1 tablet (20 mg total) by mouth nightly. Nita tilley Zinc 50 MG oral Tablet 06-12 09:11: 25 Yes 1{tbl} QD Take 1 tablet by mouth daily. Nita Jensena jarek Multiple Vitamins-Mi nerals (ICAPS AREDS 2 OR) 06-12 09:11: 25 Yes 1{tbl} Q.5D Take 1 tablet by mouth in the morning and 1 tablet in the evening. Nita Jensena jarek Chappell-3 Fatty Acids (Fish Oil) 1000 MG oral Capsule 06-12 09:11: 25 Yes 1000mg QD Take 1 capsule (1,000 mg total) by mouth daily. Nita tilley Cetirizine (ZYRTEC) 10 MG oral Tablet 06-08 00:00: 00 Yes [id number] 10mg QD TAKE 1 TABLET BY MOUTH EVERY DAY Nita tilley Zinc 50 MG oral Tablet 05-15 08:33: 59 Yes 1{tbl} QD Take 1 tablet by mouth daily Nita tilley Multiple Vitamins-Mi nerals (ICAPS AREDS 2 OR) 05-15 08:33: 59 Yes 1{tbl} Q.5D Take 1 tablet by mouth 2 times daily. Nita tilley Chappell-3 Fatty Acids (Fish Oil) 1000 MG oral Capsule 05-15 08:33: 59 Yes 1000mg QD Take 1 capsule (1,000 mg total) by mouth daily. Nita tilley Cetirizine (ZyrTEC Allergy) 10 MG oral Tablet 05-15 00:00: 00 Yes [id number] 10mg QD Take 1 tablet (10 mg total) by mouth daily. Nita tilley methylPREDN ISolone 4 MG oral Tablet Therapy Pack 05-15 00:00: 00 06-19 00:00 :00 No [id number] 1{anusha} Take 1 anusha by mouth See Admin Instructio ns Use as directed. Nita tilley Azithromyci n 250 MG oral Tablet 05-15 00:00: 00 05-21 04:59 :00 Yes [id number] Take 2 tablets by mouth on day 1 then 1 tablet by mouth daily for 4 days thereafter .. Nita tilley Chappell-3 Fatty Acids (Fish Oil) 1000 MG oral Capsule 04-23 16:21: 50 Yes 1000mg QD Take 1 capsule (1,000 mg total) by mouth daily. Nita tilley Zinc 50 MG oral Tablet 04-23 15:58: 17 Yes 1{tbl} QD Take 1 tablet by mouth daily Nita tilley Multiple Vitamins-Mi nerals (ICAPS AREDS 2 OR) 04-23 15:58: 17 Yes 1{tbl} Q.5D Take 1 tablet by mouth 2 times daily. Nita tilley Oxybutynin Chloride (Ditropan XL) 10 MG oral TABLET SR 24 HR 04-23 00:00: 00 Yes [id number] 10mg QD Take 1 tablet (10 mg total) by mouth daily. Nita tilley Metformin HCl 500 MG oral Tablet 04-23 00:00: 00 Yes [id number] 3 500mg Take 1 tablet (500 mg total) by mouth 3 times daily (with meals). Nita tilley Meloxicam 15 MG oral Tablet 04-23 00:00: 00 Yes [id number] 15mg QD Take 1 tablet (15 mg total) by mouth daily as needed for pain. Nita tilley Trazodone HCl 50 MG oral Tablet 04-23 00:00: 00 Yes [id number] 50mg QD Take 1 tablet (50 mg total) by mouth nightly. Nita tilley Zinc 50 MG oral Tablet 2023-03 14:24: 28 Yes 1{tbl} QD Take 1 tablet by mouth daily Nita tilley Multiple Vitamins-Mi nerals (ICAPS AREDS 2 OR) 2023-03 14:24: 28 Yes 1{tbl} Q.5D Take 1 tablet by mouth 2 times daily. Nita tilley Zinc 50 MG oral Tablet 2023-03 09:53: 53 Yes 1{tbl} QD Take 1 tablet by mouth daily Nita tilley Multiple Vitamins-Mi nerals (ICAPS AREDS 2 OR) 2023-03 09:53: 53 Yes 1{tbl} Q.5D Take 1 tablet by mouth 2 times daily. Nita tilley Trazodone HCl 50 MG oral Tablet 2023-03 00:00: 00 04-23 00:00 :00 No [id number] TAKE 1 TABLET BY MOUTH NEEDED FOR SLEEP Nita tilley Nitrofurant oin Monohyd Macro (Macrobid) 100 MG oral Capsule 2023-03 00:00: 00 03-02 05:59 :00 No 100mg Q.5D Take 1 capsule (100 mg total) by mouth 2 times daily for 3 days Take first dose 24 hours prior to procedure. Nita tilley Zinc 50 MG oral Tablet 2023-03 10:03: 43 Yes 1{tbl} QD Take 1 tablet by mouth daily Nita tilley Multiple Vitamins-Mi nerals (ICAPS AREDS 2 OR) 2023-03 10:03: 43 Yes 1{tbl} Q.5D Take 1 tablet by mouth 2 times daily. Nita tilley Methylpredn isolone Acetate (Depo-Medro l) [40 mg/mL] - Physician Administere d (J1030) 2023-03 10:08: 16 No [id number] 80mg 80 mg, Physician Administer ed, ONCE, 1 dose, On Sun01/14/24 at 0915 Nita tilley Multiple Vitamins-Mi nerals (ICAPS AREDS 2 OR) 2023-03 08:38: 43 Yes 1{tbl} Q.5D Take 1 tablet by mouth 2 times daily. Nita tilley Zinc 50 MG oral Tablet 2023-03 08:38: 43 Yes 1{tbl} QD Take 1 tablet by mouth daily Nita tilley Zinc 50 MG oral Tablet 2023-03 09:07: 50 Yes 1{tbl} QD Take 1 tablet by mouth daily Nita tilley Multiple Vitamins-Mi nerals (ICAPS AREDS 2 OR) 2023-03 09:07: 50 Yes 1{tbl} Q.5D Take 1 tablet by mouth 2 times daily. Nita tilley Famotidine (PEPCID) 20 MG oral tablet 2023-03 00:00: 00 Yes [id number] 20mg Q.5D Take 1 tablet (20 mg total) by mouth 2 times daily. Nita tilley Zinc 50 MG oral Tablet 2023-03 10:11: 13 Yes 1{tbl} QD Take 1 tablet by mouth daily Nita tilley Multiple Vitamins-Mi nerals (ICAPS AREDS 2 OR) 2023-03 10:11: 13 Yes 1{tbl} Q.5D Take 1 tablet by mouth 2 times daily. Nita tilley Oxybutynin Chloride (Ditropan XL) 10 MG oral TABLET SR 24 HR 2023-03 00:00: 00 Yes [id number] 10mg QD Take 1 tablet (10 mg total) by mouth daily. Nita tilley Cholecalcif milton (D3) 50 MCG (1999) oral Tablet 10-14 16:43: 40 10-14 00:00 :00 No 1999{tb l} QD Take 2,000 tablets by mouth daily 2 tabs. Nita tilley Zinc 50 MG oral Tablet 10-14 16:40: 34 Yes 1{tbl} QD Take 1 tablet by mouth daily Nita tilley Multiple Vitamins-Mi nerals (ICAPS AREDS 2 OR) 10-14 16:40: 34 Yes 1{tbl} Q.5D Take 1 tablet by mouth 2 times daily. Nita tilley Multiple Vitamins-Mi nerals (ICAPS AREDS 2 OR) 09-26 15:39: 26 Yes 1{tbl} Q.5D Take 1 tablet by mouth 2 times daily. Nita tilley Misc Natural Products (GLUCOSAMIN E CHOND CMP ADVANCED OR) 09-26 15:38: 53 Yes 1{tbl} Q.5D Take 1 tablet by mouth 2 times daily. Nita tilley Zinc 50 MG oral Tablet 09-26 15:13: 15 Yes 1{tbl} QD Take 1 tablet by mouth daily Nita tilley Cholecalcif milton (D3) 50 MCG (1999) oral Tablet 09-26 15:13: 15 Yes 1999{tb l} QD Take 2,000 tablets by mouth daily 2 tabs. Nita tilley Zinc 50 MG oral Tablet 08-23 10:33: 57 Yes 1{tbl} Take 1 tablet by mouth daily Nita tilley Cholecalcif milton (D3) 50 MCG (1999) oral Tablet 08-23 10:33: 57 Yes 1999{tb l} Take 2,000 tablets by mouth daily 2 tabs. Nita tilley Turmeric 500 MG oral Capsule 08-23 00:00: 00 Yes [id number] 1{capsu le} Take 1 capsule by mouth after breakfast and after evening meal. Nita tilley Glucosamine -Chondroiti n ([facility]S Glucosamine -Chondroiti n) 500-400 MG oral Tablet 08-23 00:00: 00 09-23 04:59 :00 No [id number] 1{tbl} Take 1 tablet by mouth 3 times daily. Nita tilley Trazodone HCl 50 MG oral Tablet 08-15 09:32: 43 08-15 00:00 :00 No 50mg Take 1 tablet (50 mg total) by mouth as needed for sleep. Nita tilley Zinc 50 MG oral Tablet 08-15 09:07: 24 Yes 1{tbl} Take 1 tablet by mouth daily Nita tilley Cholecalcif milton (D3) 50 MCG (1999) oral Tablet 08-15 09:07: 24 Yes 1999{tb l} Take 2,000 tablets by mouth daily 2 tabs. Nita tilley Trazodone HCl 50 MG oral Tablet 08-15 00:00: 00 Yes [id number] 50mg Take 1 tablet (50 mg total) by mouth as needed for sleep. Nita tilley Meloxicam 15 MG oral Tablet 08-15 00:00: 00 04-23 00:00 :00 No [id number] 15mg QD Take 1 tablet (15 mg total) by mouth daily as needed for pain. Nita tilley Metformin HCl 500 MG oral Tablet 08-15 00:00: 00 04-23 00:00 :00 No [id number] 3 500mg Take 1 tablet (500 mg total) by mouth 3 times daily (with meals). Nita tilley Cholecalcif milton (D3) 50 MCG (1999) oral Tablet 07-12 13:34: 21 Yes 1999{tb l} Take 2,000 tablets by mouth daily 2 tabs. Nita tilley Zinc 50 MG oral Tablet 06-26 10:37: 04 Yes 1{tbl} Take 1 tablet by mouth daily Nita tilley Duloxetine HCl [address] Particles 06-26 00:00: 00 08-15 00:00 :00 No [id number] 60mg Take 1 capsule (60 mg total) by mouth daily. Nita tilley Zinc 50 MG oral Tablet 05-15 16:08: 36 Yes 1{tbl} Take 1 tablet by mouth daily Nita tilley Duloxetine HCl [address] Particles 05-15 00:00: 00 Yes [id number] 30mg Take 1 capsule (30 mg total) by mouth daily. Nita tilley Azithromyci n 250 MG oral Tablet 05-15 00:00: 00 05-21 04:59 :00 No [id number] Take 2 tablets by mouth on day 1 then 1 tablet by mouth daily for 4 days thereafter .. Nita tilley Zinc 50 MG oral Tablet 05-02 10:28: 39 Yes 1{tbl} Take 1 tablet by mouth daily Nita tilley Duloxetine HCl [address] Particles 05-02 00:00: 00 Yes [id number] 20mg Take 1 capsule (20 mg total) by mouth daily. Nita tilley Naproxen 500 MG oral Tablet 05-02 00:00: 00 08-15 00:00 :00 No [id number] 500mg Q.5D Take 1 tablet (500 mg total) by mouth 2 times daily as needed (Pain). Nita tilley Zinc 50 MG oral Tablet 04-18 11:08: 52 Yes 1{tbl} Take 1 tablet by mouth daily Nita tilley EQL Natural Zinc 50 MG oral Tablet 04-18 11:07: 49 04-18 00:00 :00 No [id number] 1{tbl} Take 1 tablet by mouth daily Nita tilley PAXLOVID STANDARD (30) (300/100) Therapy Pack 04-13 00:00: 00 04-18 00:00 :00 No [id number] Take two 150 mg nirmatrelv ir (pink) tablets with one 100 mg ritonavir (white) tablet by mouth two times daily for 5 days. Nita tilley Benzonatate (Tessalon Perles) 100 MG oral Capsule 04-12 00:00: 00 05-15 00:00 :00 No [id number] 15730 100mg Q.[id number] 3D Take 1 capsule (100 mg total) by mouth 3 times daily as needed for cough. Nita tilley Diclofenac Sodium 75 MG oral Tablet Delayed Response 03-20 00:00: 00 Yes [id number] 75mg Q.5D Take 1 tablet (75 mg [...] MG oral Tablet Delayed Response 2022-03 10:01: 02-20 00:00 :00 No 81mg Take 1 tablet (81 mg total) by mouth daily. Nita tilley EQL Natural Zinc 50 MG oral Tablet 2022-03 10:00: 28 Yes [id number] 1{tbl} Take 1 tablet by mouth daily Nita Ortegakimberleeeli Cordero jarek Azithromyci n 250 MG oral Tablet 2022-03 00:00: 00 Yes [id number] Take 2 tablets by mouth on day 1 then 1 tablet by mouth daily for 4 days thereafter .. Nita Ortegaleslie tilley Methylpredn isolone Acetate (Depo-Medro l) 40 mg/ml - Physician Administere d (J1030) 2022-03 20:30: 00 02-05 22:43 :00 No [id number] 9109 40mg Nita Ortegakimberleeeli Katherine tilley Methylpredn isolone Acetate (Depo-Medro l) 40 mg/ml - Physician Administere d (J1030) 2022-03 20:30: 00 02-05 22:42 :00 No [id number] 20mg Nita Ortegakimberleeeli Murphy Mikeyzee jarek EQL Natural Zinc 50 MG oral Tablet 2022-03 13:43: 56 Yes [id number] 1{tbl} Take 1 tablet by mouth daily Nita Terence tilley Bacillus Coagulans-I nulin (Align Prebiotic-P robiotic) 5-1.25 MG-GM oral Chewable Tablet 2022-03 13:43: 56 Yes 1{tbl} Take 1 tablet by mouth daily Nita Ortegaleslie tilley Aspirin 81 MG oral Tablet Delayed Response 2022-03 13:43: 56 Yes 81mg Take 1 tablet (81 mg total) by mouth daily. Nita Ortegakimberleeeli Cordero jarek EQL Natural Zinc 50 MG oral Tablet 2022-03 13:26: 54 Yes [id number] 1{tbl} Take 1 tablet by mouth daily Nita Ortegaleslie Katherine Mikeya jarek Bacillus Coagulans-I nulin (Align Prebiotic-P robiotic) 5-1.25 MG-GM oral Chewable Tablet 2022-03 13:26: 54 Yes 1{tbl} Take 1 tablet by mouth daily Nita Terence Jensena jarek Aspirin 81 MG oral Tablet Delayed Response 2022-03 13:26: 54 Yes 81mg Take 1 tablet (81 mg total) by mouth daily. Nita tilley Diclofenac Sodium 75 MG oral Tablet Delayed Response 2022-03 00:00: 00 Yes [id number] 75mg Q.5D Take 1 tablet (75 mg total) by mouth 2 times daily as needed (pain). Nita tilley Metformin HCl 500 MG oral Tablet 2022-03 00:00: 00 08-15 00:00 :00 No [id number] 3 500mg Take 1 tablet (500 mg total) by mouth 3 times daily (with meals). Nita tilley EQL Natural Zinc 50 MG oral Tablet 2022-03 11:17: 10 Yes [id number] 1{tbl} Take 1 tablet by mouth daily [...] PREP KIT) 17.5-3.13-1 .6 GM/177ML oral Solution 2022-0313 00:00: 00 02-20 00:00 :00 No [id number] Instructio ns provided to patient. Follow instructio [...] MG oral Tablet 2022-03 09:02: 54 Yes [id number] 1{tbl} Take 1 tablet by mouth daily Nita tilley Bacillus Coagulans-I nulin (Align Prebiotic-P robiotic) 5-1.25 MG-GM oral Chewable Tablet 2022-03 09:02: 54 Yes 1{tbl} Take 1 tablet by mouth daily Nita tilley Potassium 99 MG oral Tablet 2022-03 00:00: 00 08-15 00:00 :00 No 1{tbl} QD Take 1 tablet by mouth daily as needed. Nita tilley Meloxicam 15 MG oral Tablet 11-01 00:00: 00 01-16 00:00 :00 No [id number] 15mg QD Take 1 tablet (15 mg total) by mouth daily as needed for pain. Nita tilley Glucose Blood in vitro Strip 10-16 00:00: 00 Yes 100{eac h} 100 each by other route daily Use to check FSBS twice daily and as needed. Nita tilely Tizanidine HCl 2 MG oral Tablet 09-19 00:00: 00 12-19 00:00 :00 No [id number] TAKE 1 TABLET BY MOUTH NIGHTLY NEEDED FOR MUSCLE SPASMS. Nita tilley EQL Natural Zinc 50 MG oral Tablet 09-18 10:32: 09 Yes [id number] 1{tbl} Take 1 tablet by mouth daily Nita tilley Vibegron (Gemtesa) 75 MG oral Tablet 09-18 10:32: 09 Yes 1{tbl} Take 1 tablet by mouth daily Nita tilley Bacillus Coagulans-I nulin (Align Prebiotic-P robiotic) 5-1.25 MG-GM oral Chewable Tablet 09-18 10:32: 09 Yes 1{tbl} Take 1 tablet by mouth daily Nita tilley Tizanidine HCl 2 MG oral Tablet 09-18 00:00: 00 Yes [id number] 2mg QD Take 1 tablet (2 mg total) by mouth nightly as needed for muscle spasms Nita tilley EQL Natural Zinc 50 MG oral Tablet 09-06 14:07: 53 Yes [id number] 1{tbl} Take 1 tablet by mouth daily Nita tilley Vibegron (Gemtesa) 75 MG oral Tablet 09-06 [...] 08-31 09:50: 40 08-31 00:00 :00 No [id number] 50mg Take 1 tablet (50 mg total) by mouth nightly Nita tilley VITAMIN E OR 08-31 09:49: 20 08-31 00:00 :00 No Take by mouth Nita tilley Zinc 50 MG oral Tablet 08-31 09:48: 50 Yes 1{tbl} Take 1 tablet by mouth daily Nita tilley Zinc 50 MG oral Tablet 08-31 09:38: 44 Yes [id number] 1{tbl} Take 1 tablet by mouth daily Nita tilley Vibegron (Gemtesa) 75 MG oral Tablet 08-31 09:38: 44 Yes 1{tbl} Take 1 tablet by mouth daily Nita tilley Magnesium 250 MG oral Tablet 08-31 00:00: 00 Yes [id number] 1{tbl} QD Take 1 tablet by mouth daily as needed Nita tilley Potassium 99 MG oral Tablet 08-31 00:00: 00 Yes [id number] 1{tbl} Take 1 tablet by mouth daily Nita tilley Magnesium 250 MG oral Tablet 08-31 00:00: 00 Yes [id number] 1{tbl} QD Take 1 tablet by mouth daily as needed Nita tilley Metformin HCl 500 MG oral Tablet 08-31 00:00: 00 Yes [id number] 3 500mg Take 1 tablet (500 mg total) by mouth in the morning and 1 tablet (500 mg total) in the evening. Take with meals. Nita tilley Vitamin E 100 units oral Tablet 08-31 00:00: 00 Yes [id number] 1{tbl} Take 1 tablet by mouth daily Nita tilley Turmeric-Gi nger 150-25 MG oral Chewable Tablet 08-31 00:00: 00 08-15 00:00 :00 No [id number] 1{tbl} Take 1 tablet by mouth daily Nita tilley Multiple Vitamins-Mi nerals (Systane ICaps AREDS2) oral Capsule 08-31 00:00: 00 02-20 00:00 :00 No [id number] 1{capsu le} Take 1 capsule by mouth 2 times daily Nita tilley Trazodone HCl 50 MG oral Tablet 08-31 00:00: 00 12-19 00:00 :00 No [id number] 50mg QD Take 1 tablet (50 mg total) by mouth nightly as needed for sleep Nita tilley Potassium 99 MG oral Tablet 08-31 00:00: 00 12-19 00:00 :00 No [id number] 1{tbl} Take 1 tablet by mouth daily Nita tilley Trazodone HCl 50 MG oral Tablet 08-18 10:30: 57 Yes [id number] 50mg Take 1 tablet (50 mg total) by mouth nightly Nita tilley EQL Natural Zinc 50 MG oral Tablet 08-18 10:30: 57 Yes [id number] 1{tbl} Take 1 tablet by mouth daily Nita tilley Vibegron (Gemtesa) 75 MG oral Tablet 08-18 10:30: 57 Yes 1{tbl} Take 1 tablet by mouth daily Nita tilley Multiple Vitamins-Mi nerals (ICAPS AREDS 2 OR) 08-18 10:30: 57 Yes Take by mouth Nita tilley Na Sulfate-K Sulfate-Mg Sulf (SUPREP BOWEL PREP KIT) 17.5-3.13-1 .6 GM/177ML oral Solution 08-18 00:00: 00 Yes [id number] Instructio ns provided to patient. Follow instructio ns provided by provider. Nita tilley TURMERIC-GI NGER OR 08-16 00:00: 00 Yes Nita tilley Atorvastati n Calcium 10 MG oral Tablet 08-10 00:00: 00 08-31 00:00 :00 No Nita tilley Triamcinolo ne Acetonide (KENALOG) 40 mg/mL 08-03 13:30: 00 08-03 13:38 :00 No [id number] 40mg Nita tilley Trazodone HCl 50 MG oral Tablet 08-03 08:08: 04 Yes [id number] 50mg Take 1 tablet (50 mg total) by mouth nightly Nita tilley EQL Natural Zinc 50 MG oral Tablet 08-03 08:08: 04 Yes [id number] 1{tbl} Take 1 tablet by mouth daily Nita tilley Vibegron (Gemtesa) 75 MG oral Tablet 08-03 08:08: 04 Yes 1{tbl} Take 1 tablet by mouth daily Nita tilley Multiple Vitamins-Mi nerals (ICAPS AREDS 2 OR) 08-03 08:08: 04 Yes Take by mouth Nita tilley Pseudoeph-B romphen-DM 30-2-10 MG/5ML oral Syrup 08-03 00:00: 00 Yes [id number] 10mL Q.25D Take 10 mL by mouth 4 times daily as needed Nita tilley methylPREDN ISolone 4 MG oral Tablet Therapy Pack 08-03 00:00: 00 Yes [id number] 1{anusha} Take 1 anusha by mouth See Admin Instructio ns Use as directed Nita tilley Benzonatate (Tessalon Perles) 100 MG oral Capsule 08-03 00:00: 00 08-31 00:00 :00 No [id number] 100mg Q.[id number] 3D Take 1 capsule (100 mg total) by mouth 3 times daily as needed for cough Nita tilley Azithromyci n 500 MG oral Tablet 08-03 00:00: 00 08-31 00:00 :00 No [id number] 500mg Take 1 tablet (500 mg total) by mouth daily Nita tilley methylPREDN ISolone 4 MG oral Tablet Therapy Pack 08-03 00:00: 00 08-31 00:00 :00 No [id number] 1{anusha} Take 1 anusha by mouth See Admin Instructio ns Use as directed Nita tilley Metformin HCl 500 MG oral Tablet 07-18 00:00: 00 08-31 00:00 :00 No 500mg Take 1 tablet (500 mg total) by mouth 3 times daily (with meals) Nita tilley Duloxetine HCl [address] Particles 07-12 00:00: 00 12-19 00:00 :00 No [id number] 20mg Take 1 capsule (20 mg total) by mouth daily Nita tilley Multiple Vitamins-Mi nerals (ICAPS AREDS 2 OR) 06-19 11:36: 57 Yes Take by mouth Nita tilley Trazodone HCl 50 MG oral Tablet 06-19 11:21: 19 Yes [id number] 50mg Take 1 tablet (50 mg total) by mouth as needed for sleep. Nita tilley EQL Natural Zinc 50 MG oral Tablet 06-19 11:21: 19 Yes [id number] 1{tbl} Take 1 tablet by mouth daily Nita tilley Vibegron (Gemtesa) 75 MG oral Tablet 06-19 11:21: 19 Yes 1{tbl} Take 1 tablet by mouth daily Nita tilley Duloxetine HCl (Cymbalta) [address] Particles 06-19 00:00: 00 Yes [id number] 20mg Take 1 capsule (20 mg total) by mouth daily Nita tilley Vibegron (Gemtesa) 75 MG oral Tablet 06-01 14:15: 34 Yes 1{tbl} Take 1 tablet by mouth daily Nita tilley Trazodone HCl 50 MG oral Tablet 06-01 14:15: 34 Yes [id number] 50mg Take 50 mg by mouth nightly Nita tilley EQL Natural Zinc 50 MG oral Tablet 06-01 14:15: 34 Yes [id number] 1{tbl} Take 1 tablet by mouth daily Nita tilley Atorvastati n Calcium 10 MG oral Tablet 05-31 09:40: 36 05-31 00:00 :00 No [id number] 3 10mg Take 10 mg by mouth daily Nita tilley Trazodone HCl 50 MG oral Tablet 05-31 09:23: 50 Yes [id number] 50mg Take 50 mg by mouth nightly Nita tilley EQL Natural Zinc 50 MG oral Tablet 05-31 09:23: 50 Yes [id number] 1{tbl} Take 1 tablet by mouth daily Nita tilley Vibegron (Gemtesa) 75 MG oral Tablet 05-31 09:23: 50 Yes 1{tbl} Take 1 tablet by mouth daily Nita tilley EQL Natural Zinc 50 MG oral Tablet 05-15 10:04: 23 Yes [id number] 1{tbl} Take 1 tablet by mouth daily Nita tilley Trazodone HCl 50 MG oral Tablet 05-15 10:03: 01 Yes [id number] 50mg Take 50 mg by mouth nightly Nita tilley Atorvastati n Calcium 10 MG oral Tablet 05-15 10:03: 01 Yes [id number] 3 10mg Take 10 mg by mouth daily Nita tilley Meloxicam 15 MG oral Tablet 05-15 00:00: 00 08-31 00:00 :00 No [id number] 15mg QD Take 1 tablet (15 mg total) by mouth daily as needed for pain Nita tilley Metformin HCl 500 MG oral [...] 50 Yes Take by mouth if needed. [facility] metFORMIN (Glucophage ) 500 MG tablet 03-17 00:00: 00 Yes TAKE 1 TABLET BY MOUTH THREE TIMES A DAY WITH A MEAL 90 [facility] Calcium Carb-Cholec alciferol (Calcium+D3 ) 600-800 MG-UNIT tablet 11-29 00:00: 00 Yes [facility] Cholecalcif milton (Vitamin D3) 25 MCG tablet 11-29 00:00: 00 Yes [facility] Immunizations Ordered Immunization Name Filled Immunization Name Date Status Comments Source Pneumococcal Vaccine, Polysaccharide 2022-05-31 00:00:00 Completed Nita Seybold - External Tdap- (Boostrix, Adacel) 2022-05-31 00:00:00 Completed Nita Ortegaybold - External Pneumococcal Vaccine, Polysaccharide 2022-05-31 00:00:00 [...] 2022-05-31 00:00:00 Completed Nita Seybold - External Influenza, [...] Dose (HEPLISAV B) 2013-06-18 00:00:00 Completed Nita Pratt - External Tdap- (Boostrix, Adacel) Unknown Completed Nita Pratt - External Influenza Virus Vaccine, No Preserv, age 6 months and up Unknown Completed Nita Wiggins eybold - External Influenza, Injectable, Mdck, Preservative Free, Quadrivalent Unknown Completed Nita Seybold - External Hepatitis B- 2 Dose (HEPLISAV B) Unknown Completed Nita Pratt - External Pneumococcal Vaccine, Polysaccharide Unknown Completed Nita Pfeiffer d - External Tdap- (Boostrix, Adacel) Unknown Completed Nita Ortegaybold - External Influenza Virus Vaccine, No Preserv, age 6 months and up Unknown Completed Nita Wiggins eybold - External Hepatitis B- 2 Dose (HEPLISAV B) Unknown Completed Nita Pratt - External Pneumococcal Vaccine, Polysaccharide Unknown Completed Nita Seybol d - External Tdap- (Boostrix, Adacel) Unknown Completed Nita Seybold - External Influenza, Injectable, Mdck, Preservative Free, Quadrivalent Unknown Completed Nita Seybold - External Influenza Virus Vaccine, No Preserv, age 6 months and up Unknown Completed Nita S eybold - External Influenza, Injectable, Mdck, Preservative Free, Quadrivalent [facility] D[facility] (HEPLISAV B) Unknown Completed Nita Seybold - External Pneumococcal Vaccine, Polysaccharide Unknown Completed Nita Seybol d - External Tdap- (Boostrix, Adacel) Unknown [facility] Influenza Virus Vaccine, No Preserv, age 6 months and up Unknown Completed Nita S eybold - External Influenza, Injectable, Mdck, Preservative Free, Quadrivalent Unknown [facility]- 2 Dose (HEPLISAV B) [facility], Pol[facility]accharide [facility] T[facility]- (Boostrix, Adacel) Unknown [facility] Influenza Virus Vaccine, No Preserv, age 6 months and up Unknown Completed Nita Wiggins eybold - External Influenza, Injectable, Mdck, Preservative Free, Quadrivalent Unknown [facility] Hepatitis B- 2 Dose (HEPLISAV B) Unknown [facility] Pneumococcal Vaccine, Polysaccharide Unknown Completed Nita Seybol d - External Tdap- (Boostrix, Adacel) Unknown [facility] Influenza Virus Vaccine, No Preserv, age 6 months and up Unknown Completed Nita S eybold - External Influenza, Injectable, Mdck, Preservative Free, Quadrivalent Unknown Completed Nita Seybold - External Hepatitis B- 2 Dose (HEPLISAV B) Unknown Completed Nita Seybold - External Pneumococcal Vaccine, Polysaccharide Unknown Completed Nita Seybol d - External Tdap- (Boostrix, Adacel) Unknown Completed Nita Seybold - External Influenza Virus Vaccine, No Preserv, age 6 months and up Unknown Completed Nita S eybold - External Influenza, Injectable, Mdck, Preservative Free, Quadrivalent Unknown Completed Nita Seybold - External Hepatitis B- 2 Dose (HEPLISAV B) Unknown Completed Nita Seybold - External Pneumococcal Vaccine, Polysaccharide Unknown Completed Nita Seybol d - External Tdap- (Boostrix, Adacel) Unknown Completed Nita Seybold - External Influenza Virus Vaccine, No Preserv, age 6 months and up Unknown Completed Nita Wiggins eybold - External Influenza, Injectable, Mdck, Preservative Free, Quadrivalent Unknown Completed Nita Seybold - External Hepatitis B- 2 Dose (HEPLISAV B) Unknown Completed Nita Seybold - External Pneumococcal Vaccine, Polysaccharide Unknown Completed Nita Seybol d - External Tdap- (Boostrix, Adacel) Unknown Completed Nita Seybold - External Influenza Virus Vaccine, No Preserv, age 6 months and up Unknown Completed Nita S eybold - External Influenza, Injectable, Mdck, Preservative Free, Quadrivalent Unknown Completed Nita Seybold - External Hepatitis B- 2 Dose (HEPLISAV B) Unknown Completed Nita Seybold - External Pneumococcal Vaccine, Polysaccharide Unknown Completed Nita Seybol d - External Tdap- (Boostrix, Adacel) Unknown [facility] Influ[facility] Virus Vaccine, No Preserv, age 6 months and up Unknown Completed Nita Wiggins eybold - External Influenza, Injectable, Mdck, Preservative Free, Quadrivalent Unknown Completed Nita Seybold - External Hepatitis B- 2 Dose (HEPLISAV B) Unknown Completed Nita Seybold - External Pneumococcal Vaccine, Polysaccharide Unknown Completed Nita Seybol d - External Tdap- (Boostrix, Adacel) Unknown Completed Nita ybold - External Influenza Virus Vaccine, No Preserv, age 6 months and up Unknown Completed Nita S eybold - External Influenza, Injectable, Mdck, Preservative Free, Quadrivalent Unknown Completed Nita Seybold - External Hepatitis B- 2 Dose (HEPLISAV B) Unknown Completed Nita Seybold - External Pneumococcal Vaccine, Polysaccharide Unknown Completed Nita Seybol d - External Tdap- (Boostrix, Adacel) Unknown Completed Nita Seybold - External Influenza Virus Vaccine, No Preserv, age 6 months and up Unknown Completed Nita S eybold - External Influenza, Injectable, Mdck, Preservative Free, Quadrivalent Unknown Completed Nita Seybold - External Hepatitis B- 2 Dose (HEPLISAV B) Unknown Completed Nita Seybold - External Pneumococcal Vaccine, Polysaccharide Unknown [facility] T[facility]- (Boostrix, Adacel) Unknown Completed Nita ybold - External Influenza Virus Vaccine, No Preserv, age 6 months and up Unknown Completed Nita Wiggins eybold - External Influenza, Injectable, Mdck, Preservative Free, Quadrivalent Unknown [facility]atitis B- 2 Dose (HEPLISAV B) Unknown [facility] Pneumococcal Vaccine, Polysaccharide Unknown [facility] (Boostrix, Adacel) [facility] Influenza Virus Vaccine, No Preserv, age 6 months and up Unknown Completed Nita Wiggins eybold - External Influenza, Injectable, Mdck, Preservative Free, Quadrivalent Unknown [facility]- 2 Dose (HEPLISAV B) Unknown [facility] Pneumococcal Vaccine, Polysaccharide Unknown [facility] Tdap- (Boostrix, Adacel) Unknown [facility] Influenza Virus Vaccine, No Preserv, age 6 months and up Unknown Completed Nita Wiggins bold - External Influenza, Injectable, Mdck, Preservative Free, Quadrivalent Unknown [facility]atitis B- 2 Dose (HEPLISAV B) Unknown [facility] Pneumococcal Vaccine, Polysaccharide Unknown [facility] Tdap- (Boostrix, Adacel) Unknown [facility] AFLURIA TRIVALENT PF(0.5mL) Unknown [facility] Vaccine, No Preserv, age 6 months and up Unknown Completed Nita Wiggins eybold - External Influenza, Injectable, Mdck, Preservative Free, Quadrivalent Unknown Completed Nita Seybold - External Hepatitis B- 2 Dose (HEPLISAV B) Unknown Completed Nita Seybold - External Pneumococcal Vaccine, Polysaccharide Unknown [facility]- (Boostrix, Adacel) [facility] AFLURIA TRIVALENT PF(0.5mL) Unknown [facility] Influenza Virus Vaccine, No Preserv, age 6 months and up Unknown Completed Nita Wiggins bold - External Influenza, Injectable, Mdck, Preservative Free, Quadrivalent Unknown [facility]atitis B- 2 Dose (HEPLISAV B) Unknown Completed Nita [facility] - External Pneumococcal Vaccine, Polysaccharide Unknown Completed Nita [facility] d - External Tdap- (Boostrix, Adacel) Unknown Completed [facility] - External AFLURIA TRIVALENT PF(0.5mL) Unknown Completed Nita [facility] External Influenza Virus Vaccine, No Preserv, age 6 months and up Unknown [facility] Influenza, Injectable, Mdck, Preservative Free, Quadrivalent Unknown Completed [facility] - External Hepatitis B- 2 Dose (HEPLISAV B) Unknown Completed [facility] - External Pneumococcal Vaccine, Polysaccharide Unknown Completed [facility] d - External Tdap- (Boostrix, Adacel) Unknown Completed [facility] External AFLURIA TRIVALENT PF(0.5mL) Unknown Completed Nita [facility] External Influenza Virus Vaccine, No Preserv, age 6 months and up Unknown [facility] Influenza, Injectable, Mdck, Preservative Free, Quadrivalent Unknown Completed [facility] - External Hepatitis B- 2 Dose (HEPLISAV B) Unknown Completed Nita [facility] - External Pneumococcal Vaccine, Polysaccharide Unknown Completed [facility] d - External Tdap- (Boostrix, Adacel) Unknown Completed [facility] - External AFLURIA TRIVALENT PF(0.5mL) Unknown Completed Nita [facility] External Influenza Virus Vaccine, No Preserv, age 6 months and up Unknown [facility] Influenza, Injectable, Mdck, Preservative Free, Quadrivalent Unknown Completed [facility] - External Hepatitis B- 2 Dose (HEPLISAV B) Unknown [facility] Pneumococcal Vaccine, Polysaccharide Unknown [facility] Tdap- (Boostrix, Adacel) Unknown Completed [facility] - External AFLURIA TRIVALENT PF(0.5mL) Unknown Completed [facility] - External Influenza Virus Vaccine, No Preserv, age 6 months and up Unknown Completed Nita S eybold - External Influenza, Injectable, Mdck, Preservative Free, Quadrivalent Unknown [facility]atitis B- 2 Dose (HEPLISAV B) Unknown [facility] Pneumococcal Vaccine, Polysaccharide Unknown [facility] Tdap- (Boostrix, Adacel) Unknown Completed [facility] - External AFLURIA TRIVALENT PF(0.5mL) Unknown Completed [facility] - External Influenza Virus Vaccine, No Preserv, age 6 months and up Unknown [facility] Influenza, Injectable, Mdck, Preservative Free, Quadrivalent Unknown Completed [facility] - External Hepatitis B- 2 Dose (HEPLISAV B) Unknown Completed [facility] - External Pneumococcal Vaccine, Polysaccharide Unknown [facility] Tdap- (Boostrix, Adacel) Unknown [facility] Influenza Virus Vaccine, No Preserv, age 6 months and up Unknown [facility] Influenza, Injectable, Mdck, Preservative Free, Quadrivalent Unknown Completed [facility] - External Hepatitis B- 2 Dose (HEPLISAV B) Unknown Completed [facility] - External Pneumococcal Vaccine, Polysaccharide Unknown [facility] Tdap- (Boostrix, Adacel) Unknown Completed [facility] - External Influenza Virus Vaccine, No Preserv, age 6 months and up Unknown [facility] Influenza, Injectable, Mdck, Preservative Free, Quadrivalent Unknown [facility] Hepatitis B- 2 Dose (HEPLISAV B) Unknown Completed [facility] - External Pneumococcal Vaccine, Polysaccharide Unknown [facility] Tdap- (Boostrix, Adacel) Unknown [facility] Influenza Virus Vaccine, No Preserv, age 6 months and up Unknown Completed [facility] eybold - External Influenza, Injectable, Mdck, Preservative Free, Quadrivalent Unknown Completed Nita Seybold - External Hepatitis B- 2 Dose (HEPLISAV B) Unknown Completed Nita Seybold - External Pneumococcal Vaccine, Polysaccharide Unknown Completed Nita Seybol d - External Tdap- (Boostrix, Adacel) Unknown Completed Nita Seybold - External Influenza Virus Vaccine, No Preserv, age 6 months and up Unknown Completed Nita carrbold - External Influenza, Injectable, Mdck, Preservative Free, Quadrivalent Unknown Completed Nita Pratt - External Hepatitis B- 2 Dose (HEPLISAV B) Unknown Completed Nita Pratt - External Pneumococcal Vaccine, Polysaccharide Unknown Completed Nita Alonsool d - External Vital Signs Vital Name Observation Time Observation Value Comments S ource Systolic blood pressure 2024-06-19 14:06:00 124 mm[Hg] Nita Ortegaybo ld - External Diastolic blood pressure 2024-06-19 14:06:00 74 mm[Hg] Nita Ortegaybo ld - External Heart rate 2024-06-19 14:06:00 75 /min Monty peña Seybold - External Body temperature 2024-06-19 14:06:00 36.89 Sayra Nita Ortegaybold - External Respiratory rate 2024-06-19 14:06:00 14 /min Nita Ortegaybold - External Body height 2024-06-19 14:06:00 154.9 cm Naomi ey Seybold - External Body weight 2024-06-19 14:06:00 80.74 kg Naomi carr Seybold - External BMI 2024-06-19 14:06:00 33.63 kg/m2 Naomi carr Seybold - External Oxygen saturation in Arterial blood by Pulse oximetry 2024-06-19 14:06:00 98 /min Nita Guptao ld - External Systolic blood pressure 2024-06-12 14:08:00 120 mm[Hg] Nita Guptao ld - External Diastolic blood pressure 2024-06-12 14:08:00 84 mm[Hg] Nita Ortegaybo ld - External Heart rate 2024-06-12 14:08:00 81 /min Samuelse y Seybold - External Body temperature 2024-06-12 14:08:00 36.67 Sayra Nita Seybold - External Respiratory rate 2024-06-12 14:08:00 16 /min Nita Ortegaybold - External Body height 2024-06-12 14:08:00 154.9 cm Naomi ey Seybold - External Body weight 2024-06-12 14:08:00 79.742 kg Naomi ey Seybold - External BMI 2024-06-12 14:08:00 33.22 kg/m2 Naomi ey Seybold - External Oxygen saturation in Arterial blood by Pulse oximetry 2024-06-12 14:08:00 98 /min Nita Seybo ld - External Heart rate 2024-05-15 14:29:00 85 /min Kelse y Seybold - External Body temperature 2024-05-15 14:29:00 36.11 Sayra Nita Seybold - External Body height 2024-05-15 14:29:00 154.9 cm Naomi ey Seybold - External Body weight 2024-05-15 14:29:00 80.74 kg Naomi ey Seybold - External BMI 2024-05-15 14:29:00 33.63 kg/m2 Naomi ey Seybold - External Oxygen saturation in Arterial blood by Pulse oximetry 2024-05-15 14:29:00 99 /min Nita Seybo ld - External Systolic blood pressure 2024-04-23 21:55:00 116 mm[Hg] Nita Seybo ld - External Diastolic blood pressure 2024-04-23 21:55:00 84 mm[Hg] Nita Seybo ld - External Heart rate 2024-04-23 21:55:00 81 /min Kelse y Seybold - External Body temperature 2024-04-23 21:55:00 36.06 Sayra Nita Seybold - External Respiratory rate 2024-04-23 21:55:00 18 /min Nita Seybold - External Body height 2024-04-23 21:55:00 154.9 cm Naomi ey Seybold - External Body weight 2024-04-23 21:55:00 80.287 kg Naomi ey Seybold - External BMI 2024-04-23 21:55:00 33.44 kg/m2 Naomi ey Seybold - External Oxygen saturation in Arterial blood by Pulse oximetry 2024-04-23 21:55:00 98 /min Nita Seybo ld - External Systolic blood pressure 2024-02-27 20:24:00 138 mm[Hg] Nita Seybo ld - External Diastolic blood pressure 2024-02-27 20:24:00 87 mm[Hg] Nita Seybo ld - External Heart rate 2024-02-27 20:24:00 86 /min Kelse y Seybold - External Body temperature 2024-02-27 20:24:00 36.89 Sayra Nita Seybold - External Respiratory rate 2024-02-27 20:24:00 16 /min Nita Seybold - External Body height 2024-02-27 20:24:00 154.9 cm Naomi ey Seybold - External Body weight 2024-02-27 20:24:00 80.287 kg Naomi ey Seybold - External BMI 2024-02-27 20:24:00 33.44 kg/m2 Naomi ey Seybold - External Body height 2024-02-27 15:55:00 154.9 cm Naomi ey Seybold - External Body weight 2024-02-27 15:55:00 80.343 kg Naomi ey Seybold - External BMI 2024-02-27 15:55:00 33.47 kg/m2 Naomi ey Seybold - External Systolic blood pressure 2024-01-23 15:59:00 110 mm[Hg] Nita Seybo ld - External Diastolic blood pressure 2024-01-23 15:59:00 76 mm[Hg] Nita Ortegaybo ld - External Heart rate 2024-01-23 15:59:00 76 /min Kelse y Seybold - External Body temperature 2024-01-23 15:59:00 36.61 Sayra Nita Seybold - External Respiratory rate 2024-01-23 15:59:00 18 /min Nita Seybold - External Body height 2024-01-23 15:59:00 154.9 cm Naomi ey Seybold - External Body weight 2024-01-23 15:59:00 79.096 kg Naomi ey Seybold - External BMI 2024-01-23 15:59:00 32.95 kg/m2 Naomi ey Seybold - External Oxygen saturation in Arterial blood by Pulse oximetry 2024-01-23 15:59:00 98 /min Nita Guptao ld - External Body height 2024-01-14 14:39:00 154.9 cm Naomi ey Seybold - External Body weight 2024-01-14 14:39:00 79.833 kg Naomi ey Seybold - External BMI 2024-01-14 14:39:00 33.25 kg/m2 Naomi ey Seybold - External Systolic blood pressure 2023-12-28 14:05:00 102 mm[Hg] Nita Seybo ld - External Diastolic blood pressure 2023-12-28 14:05:00 60 mm[Hg] Nita Seybo ld - External Heart rate 2023-12-28 14:05:00 80 /min Kelse y Seybold - External Body temperature 2023-12-28 14:05:00 35.67 Sayra Nita Seybold - External Respiratory rate 2023-12-28 14:05:00 18 /min Nita Seybold - External Body height 2023-12-28 14:05:00 154.9 cm Naomi ey Seybold - External Body weight 2023-12-28 14:05:00 79.833 kg Naomi ey Seybold - External BMI 2023-12-28 14:05:00 33.25 kg/m2 Naomi ey Seybold - External Oxygen saturation in Arterial blood by Pulse oximetry 2023-12-28 14:05:00 98 /min Nita Seybo ld - External Systolic blood pressure 2023-12-26 15:10:00 122 mm[Hg] Nita Seybo ld - External Diastolic blood pressure 2023-12-26 15:10:00 64 mm[Hg] Nita Seybo ld - External Heart rate 2023-12-26 15:10:00 80 /min Kelse y Seybold - External Body temperature 2023-12-26 15:10:00 36.89 Sayra Nita Seybold - External Respiratory rate 2023-12-26 15:10:00 16 /min Nita Seybold - External Body height 2023-12-26 15:10:00 154.9 cm Naomi ey Seybold - External Body weight 2023-12-26 15:10:00 80.287 kg Naomi ey Seybold - External BMI 2023-12-26 15:10:00 33.44 kg/m2 Naomi ey Seybold - External Systolic blood pressure 2023-10-15 21:35:00 112 mm[Hg] Nita Seybo ld - External Diastolic blood pressure 2023-10-15 21:35:00 70 mm[Hg] Nita Seybo ld - External Heart rate 2023-10-15 21:35:00 80 /min Kelse y Seybold - External Body temperature 2023-10-15 21:35:00 37.17 Sayra Nita Seybold - External Respiratory rate 2023-10-15 21:35:00 20 /min Nita Seybold - External Body height 2023-10-15 21:35:00 160 cm Naomi ey Seybold - External Body weight 2023-10-15 21:35:00 80.74 kg Naomi ey Seybold - External BMI 2023-10-15 21:35:00 31.53 kg/m2 Naomi ey Seybold - External Systolic blood pressure 2023-09-27 20:11:00 114 mm[Hg] Nita Seybo ld - External Diastolic blood pressure 2023-09-27 20:11:00 68 mm[Hg] Nita Seybo ld - External Heart rate 2023-09-27 20:11:00 89 /min Kelse y Seybold - External Body temperature 2023-09-27 20:11:00 37.06 Sayra Nita Seybold - External Respiratory rate 2023-09-27 20:11:00 16 /min Nita Seybold - External Body height 2023-09-27 20:11:00 160 cm Naomi ey Seybold - External Body weight 2023-09-27 20:11:00 80.287 kg Naomi ey Seybold - External BMI 2023-09-27 20:11:00 31.35 kg/m2 Naomi ey Seybold - External Oxygen saturation in Arterial blood by Pulse oximetry 2023-09-27 20:11:00 98 /min Nita Seybo ld - External Systolic blood pressure 2023-08-24 15:34:00 127 mm[Hg] Nita Seybo ld - External Diastolic blood pressure 2023-08-24 15:34:00 80 mm[Hg] Nita Seybo ld - External Body height 2023-08-24 15:34:00 160 cm Naomi ey Seybold - External Systolic blood pressure 2023-08-16 14:05:00 112 mm[Hg] Nita Seybo ld - External Diastolic blood pressure 2023-08-16 14:05:00 76 mm[Hg] Nita Seybo ld - External Heart rate 2023-08-16 14:05:00 86 /min Kelse y Seybold - External Body temperature 2023-08-16 14:05:00 37.06 Sayra Nita Seybold - External Respiratory rate 2023-08-16 14:05:00 16 /min Nita Seybold - External Body height 2023-08-16 14:05:00 154.9 cm Naomi ey Seybold - External Body weight 2023-08-16 14:05:00 79.833 kg Naomi ey Seybold - External BMI 2023-08-16 14:05:00 33.25 kg/m2 Naomi ey Seybold - External Oxygen saturation in Arterial blood by Pulse oximetry 2023-08-16 14:05:00 98 /min Nita Ortegaybo ld - External Systolic blood pressure 2023-07-23 16:06:00 108 mm[Hg] Nita Seybo ld - External Diastolic blood pressure 2023-07-23 16:06:00 70 mm[Hg] Nita Seybo ld - External Heart rate 2023-07-23 16:06:00 68 /min Samuelse y Seybold - External Body temperature 2023-07-23 16:06:00 37.06 Sayra Nita Ortegaybold - External Respiratory rate 2023-07-23 16:06:00 18 /min Nita Ortegaybold - External Body height 2023-07-23 16:06:00 156.5 cm Naomi ey Seybold - External Body weight 2023-07-23 16:06:00 78.382 kg Naomi ey Seybold - External BMI 2023-07-23 16:06:00 32.00 kg/m2 Naomi ey Seybold - External Systolic blood pressure 2023-07-13 18:28:00 100 mm[Hg] Nita Seybo ld - External Diastolic blood pressure 2023-07-13 18:28:00 60 mm[Hg] Nita Seybo ld - External Heart rate 2023-07-13 18:28:00 86 /min Kelse y Seybold - External Body temperature 2023-07-13 18:28:00 36.67 Sayra Nita Seybold - External Respiratory rate 2023-07-13 18:28:00 18 /min Nita Seybold - External Body height 2023-07-13 18:28:00 160 [...] External Heart rate 2023-06-27 15:38:00 86 /min Kelse y Seybold - External Body temperature 2023-06-27 [...] External Heart rate 2023-05-16 22:08:00 93 /min Kelse y Seybold - External Body temperature 2023-05-16 22:08:00 36.67 Sayra Niat Seybold - External Respiratory rate 2023-05-16 22:08:00 [...] External Heart rate 2023-05-02 16:29:00 82 /min Samuelse y Seybold - External Body height 2023-05-02 16:29:00 160 cm Naomi ey Seybold - External Body weight 2023-05-02 16:29:00 83.008 kg Naomi ey Seybold - External BMI 2023-05-02 16:29:00 32.42 kg/m2 Naomi ey Seybold - External Oxygen saturation in Arterial blood by Pulse oximetry 2023-05-02 16:29:00 99 /min Nita Seybo ld - External Systolic blood pressure 2023-04-18 17:06:00 127 mm[Hg] Nita Seybo ld - External Diastolic blood pressure 2023-04-18 17:06:00 87 mm[Hg] Nita Seybo ld - External Heart rate 2023-04-18 17:06:00 83 /min Kelse y Seybold - External Body temperature 2023-04-18 [...] Pulse oximetry 2023-04-18 17:06:00 100 /min Nita Ortegaybo ld - External Body height 2023-02-20 16:00:00 [...] Pulse oximetry 2022-09-06 19:08:00 98 /min Nita Ortegaybo ld - External Systolic blood pressure 2022-08-31 [...] Pulse oximetry 2022-08-31 14:37:00 99 /min Nita Ortegaybo ld - External Systolic blood pressure 2022-08-18 15:29:00 110 mm[Hg] Nita Seybo ld - External Diastolic blood pressure 2022-08-18 15:29:00 68 mm[Hg] Nita Ortegaybo ld - External Heart rate 2022-08-18 15:29:00 [...] Pulse oximetry 2022-08-18 15:29:00 98 /min Nita Ortegaybo ld - External Systolic blood pressure 2022-08-03 13:06:00 118 mm[Hg] Nita Ortegaybo ld - External Diastolic blood pressure 2022-08-03 13:06:00 82 mm[Hg] Nita Seybo ld - External Heart rate 2022-08-03 13:06:00 72 /min Kelse y Seybold - External Body temperature 2022-08-03 [...] Pulse oximetry 2022-05-31 14:21:00 99 /min Nita Guptao ld - External Systolic blood pressure 2022-05-15 15:57:00 102 mm[Hg] Nita Ortegaybo ld - External Diastolic blood pressure 2022-05-15 15:57:00 68 mm[Hg] Nita Seybo ld - External Heart rate 2022-05-15 15:57:00 82 /min Samuelse y Seybold - External Body temperature 2022-05-15 15:57:00 37.22 Sayra Nita Seybold - External Body height 2022-05-15 15:57:00 162.6 cm Naomi ey Seybold - External Body weight 2022-05-15 15:57:00 80.468 kg Naomi ey Seybold - External BMI 2022-05-15 15:57:00 30.45 kg/m2 Naomi ey Seybold - External Oxygen saturation in Arterial blood by Pulse oximetry 2022-05-15 15:57:00 99 /min Nita Guptao ld - External Encounters Start Date/Time End Date/Time Encounter Type Admission Type Attending [facility] Care Department Encounter ID Source 2025-02-25 10:00:00 2025-02-25 10:00:00 Outpatient CINTHIA MARTINEZ [id number] Nita Pratt 2024-07-31 14:00:00 2024-07-31 14:00:00 Outpatient CATHY KHAN [id number] Nita Ortegaybeli 2024-07-21 09:45:00 2024-07-21 09:45:00 Outpatient SILAS HANDLEY [id number] Nita Ortegaybeli 2024-06-26 10:00:00 2024-06-26 10:00:00 Outpatient ANA GRECO [id number] Nita Pratt 2024-06-24 11:45:00 2024-06-24 11:45:00 Outpatient [facility]ITA YA [id number] [facility] 2024-06-19 10:00:00 2024-06-19 10:00:00 Outpatient LAB90 NITA YA [id number] Nita Seybold 2024-06-19 09:00:00 2024-06-19 09:00:00 Outpatient ANA GRECO NITA YA [id number] Nita Ortegay[facility]eli 2024-06-12 09:55:00 2024-06-12 09:55:00 Outpatient [id number] NITA YA [id number] [facility] 2024-06-12 09:00:00 2024-06-12 09:00:00 Outpatient FATUMA DEVANG NITA YA [id number] [facility] 2024-06-06 00:00:00 2024-06-06 00:00:00 Outpatient RUIZ, REX YA [id number] [facility] 2024-06-03 14:00:00 2024-06-03 14:00:00 Outpatient MITZI GILLIAM [id number] [facility] 2024-05-15 08:30:00 2024-05-15 08:30:00 Outpatient HUNDJarek, REX NITA YA [id number] [facility] 2024-04-23 16:45:00 2024-04-23 16:45:00 Outpatient [id number] NITA YA [id number] [facility] 2024-04-23 16:00:00 2024-04-23 16:00:00 Outpatient SILAS HANDLEY [id number] [facility] 2024-04-08 15:00:00 2024-04-08 15:00:00 Outpatient SILAS HANDLEY [id number] Nita Seybold 2024-04-07 10:30:00 2024-04-07 10:30:00 Outpatient AINSLEY BETANCOURT [id number] Nita Seybold 2024-03-27 09:00:00 2024-03-27 09:00:00 Outpatient SILAS HAND[facility] [id number] [facility] 2024-03-24 00:00:00 2024-03-24 00:00:00 Outpatient MD NITA SALOMON [id number] Nita Seybeli 2024-02-27 14:30:00 2024-02-27 14:30:00 Outpatient AINSLEY BETANCOURT [id number] Nita Seybold 2024-02-27 13:00:00 2024-02-27 13:00:00 Outpatient BRUCEJOSE MANUEL Zee SAJI NITA YA [id number] Nita Seybeli 2024-02-27 09:30:00 2024-02-27 09:30:00 Outpatient MARTINEZ CINTHIA NITA YA [id number] Nita Seybeli 2024-02-25 00:00:00 2024-02-25 00:00:00 Outpatient SILAS HANDLEY [id number] Nita Ortegaybeli 2024-02-22 00:00:00 2024-02-22 00:00:00 Outpatient BRUCE-INOCENCIO SAJI Koch NITA YA [id number] Nita Seybeli 2024-01-24 12:50:00 2024-01-24 12:50:00 Outpatient NITA YA [id number] Nita Seybeli 2024-01-23 10:00:00 2024-01-23 10:00:00 Outpatient ANGUSANA [id number] Nita Seybeli 2024-01-14 08:40:00 2024-01-14 08:40:00 Outpatient KAYLA ALBERTS [id number] Nita Seybold 2023-12-31 00:00:00 2023-12-31 00:00:00 Outpatient SILAS HANDLEY [id number] Nita Seybold 2023-12-28 10:05:00 2023-12-28 10:05:00 Outpatient LABMinerva YA [id number] Nita Seybold 2023-12-28 09:15:00 2023-12-28 09:15:00 Outpatient PREZASILAS Wiggins [id number] Nita Seybold 2023-12-28 00:00:00 2023-12-28 00:00:00 Outpatient PREZAS, SILAS YA NITA [id number] Nita Seybold 2023-12-28 00:00:00 2023-12-28 00:00:00 Outpatient AINSLEY LAWTON NITA YA [id number] Nita Seybold 2023-12-26 10:15:00 2023-12-26 10:15:00 Outpatient AINSLEY LAWTON NITA YA [id number] Nita Seybold 2023-12-11 00:00:00 2023-12-11 00:00:00 Outpatient PREZAS, SILAS NITA YA [id number] Nita Seybold 2023-12-03 08:40:00 2023-12-03 08:40:00 Outpatient LEXUSKAYLA LARES NITA YA [id number] Nita Seybold 2023-10-29 00:00:00 2023-10-29 00:00:00 Outpatient NITA YA [id number] Nita Seybold 2023-10-18 00:00:00 2023-10-18 00:00:00 Outpatient PREZAS, SILAS NITA YA [id number] Nita Seybold 2023-10-16 13:25:00 2023-10-16 13:25:00 Outpatient NITA YA [id number] Nita Seybold 2023-10-15 16:45:00 2023-10-15 16:45:00 Outpatient PREZAS, SILAS NITA YA [id number] Nita Seybold 2023-10-10 00:00:00 2023-10-10 00:00:00 Outpatient PREZASSILAS NITA YA [id number] Nita Seybold 2023-09-27 15:00:00 2023-09-27 15:00:00 Outpatient PREZAS, SILAS NITA YA [id number] Nita Seybold 2023-08-24 10:45:00 2023-08-24 10:45:00 Outpatient ZUNIGA AARON NITA YA [id number] Nita Seybold 2023-08-23 00:00:00 2023-08-23 00:00:00 Outpatient NITA YA [id number] Nita [facility] 2023-08-16 09:15:00 2023-08-16 09:15:00 Outpatient SILAS HANDLEY [facility]ITA [facility]A [id number] [facility] 2023-08-10 10:45:00 2023-08-10 10:45:00 Outpatient AARON ZUNIGA NITA YA [id number] [facility] 2023-08-09 00:00:00 2023-08-09 00:00:00 Outpatient ANA GRECO NITA YA [id number] [facility] 2023-07-23 11:50:00 2023-07-23 11:50:00 Outpatient LAB45 NITA YA [id number] [facility] 2023-07-23 10:45:00 2023-07-23 10:45:00 Outpatient MARJORIE FLORES NITA YA [id number] [facility] 2023-07-17 14:15:00 2023-07-17 14:15:00 Outpatient NITA YA [id number] [facility] 2023-07-17 13:40:00 2023-07-17 13:40:00 Outpatient JOSEMANUELAINSLEY NITA YA [id number] [facility] 2023-07-17 00:00:00 2023-07-17 00:00:00 Outpatient ANA GRECO NITA YA [id number] [facility] 2023-07-16 16:35:00 2023-07-16 16:35:00 Outpatient LAB90 NITA YA [id number] [facility] 2023-07-16 00:00:00 2023-07-16 00:00:00 Outpatient ANA GRECO NITA YA [id number] [facility] 2023-07-13 14:15:00 2023-07-13 14:15:00 Outpatient LAB90 NTIA YA [id number] [facility] 2023-07-13 13:30:00 2023-07-13 13:30:00 Outpatient LIZ GRECOTHIA NITA YA [id number] [facility] 2023-07-02 00:00:00 2023-07-02 00:00:00 Outpatient NITA YA [id number] [facility] 2023-07-02 00:00:00 2023-07-02 00:00:00 Outpatient PREZASIALS Wiggins NITA [id number] Nita Orte[facility]eli 2023-06-29 09:25:00 2023-06-29 09:25:00 Outpatient LAB90 NITA YA [id number] [facility] 2023-06-29 00:00:00 2023-06-29 00:00:00 Outpatient PREZASSILAS NITA [id number] [facility] 2023-06-28 00:00:00 2023-06-28 00:00:00 Outpatient PREZAS, SILAS YA NITA [id number] [facility] 2023-06-27 11:20:00 2023-06-27 11:20:00 Outpatient LAB90 NITADANNY YA [id number] [facility] 2023-06-27 10:30:00 2023-06-27 10:30:00 Outpatient PREZAFeliciano, SILAS ALEMANDANNY YA [id number] [facility] 2023-06-01 00:00:00 2023-06-01 00:00:00 Outpatient PREZAS, SILAS NITA YA [id number] [facility] 2023-05-16 16:15:00 2023-05-16 16:15:00 Outpatient PREZASILAS Wiggins NITA YA [id number] [facility] 2023-05-10 13:30:00 2023-05-10 13:30:00 Outpatient NITA YA [id number] [facility] 2023-05-02 10:15:00 2023-05-02 10:15:00 Outpatient AARON ZUNIGA [id number] [facility] 2023-05-02 00:00:00 2023-05-02 00:00:00 Outpatient NITA YA [id number] [facility] 2023-04-19 00:00:00 2023-04-19 00:00:00 Outpatient PREZASSILAS NITA YA [id number] [facility] 2023-04-18 11:35:00 2023-04-18 11:35:00 Outpatient LAB90 NITA YA [id number] Nita Seybold 2023-04-18 11:00:00 2023-04-18 11:00:00 Outpatient PREZAS, SILAS NITA YA [id number] Nita Seybold 2023-04-17 09:30:00 2023-04-17 09:30:00 Outpatient PREZAS, SILAS NITA YA [id number] [facility] 2023-04-12 00:00:00 2023-04-12 00:00:00 Outpatient PREZAS, SILAS NITA YA [id number] Nita Seybold 2023-04-12 00:00:00 2023-04-12 00:00:00 Outpatient PREZAS, SILAS NITA YA [id number] [facility] 2023-03-18 00:00:00 2023-03-18 00:00:00 Outpatient PREZAS, SILAS NITA YA [id number] [facility] 2023-03-04 00:00:00 2023-03-04 00:00:00 Outpatient AHMED, JONATHANDeepthiDORISToro YA [id number] Nita Seybold 2023-03-04 00:00:00 2023-03-04 00:00:00 Outpatient PREZAS, SILAS NITA YA [id number] Nita Seybold 2023-02-22 00:00:00 2023-02-22 00:00:00 Outpatient HI, EBONY YA [id number] Nita Seybold 2023-02-20 10:00:00 2023-02-20 10:00:00 Outpatient GOLDENJEFFREY [id number] Nita Seybold 2023-02-12 06:30:00 2023-02-12 06:30:00 Outpatient HI, EBONY YA [id number] Nita Seybold 2023-02-08 00:00:00 2023-02-08 00:00:00 Outpatient GROUP, NITA YA [id number] Nita Seybold 2023-02-05 14:00:00 2023-02-05 14:00:00 Outpatient KAYLA ALBERTS NITA YA [id number] Nita [facility] 2023-01-22 09:00:00 2023-01-22 09:00:00 Outpatient KAYLA ALBERTS NITA YA [id number] [facility] 2023-01-16 14:00:00 2023-01-16 14:00:00 Outpatient PREZASILAS Wiggins NITA YA [id number] [facility] 2023-01-12 00:00:00 2023-01-12 00:00:00 Outpatient PREZAS SILAS YA [id number] [facility] 2023-01-11 11:20:00 2023-01-11 11:20:00 Outpatient MILAGRO MORRIS [id number] [facility]ita [facility] 2022-12-25 10:45:00 2022-12-25 10:45:00 Outpatient MARJORIE FLORES [id number] [facility] 2022-12-22 00:00:00 2022-12-22 00:00:00 [id number]:00:00 2022-12-22 00:00:00 Outpatient NITA YA [id number] [facility] 2022-12-22 00:00:00 2022-12-22 00:00:00 Outpatient MD NITA SALOMON [id number] [facility] 2022-12-22 00:00:00 2022-12-22 00:00:00 Outpatient EBONY DO [id number] [facility] 2022-12-21 00:00:00 2022-12-21 00:00:00 Outpatient PREZAFeliciano SILAS NITA YA [id number] [facility] 2022-12-20 10:45:00 2022-12-20 10:45:00 Outpatient NITA YA [id number] [facility] 2022-12-19 09:25:00 2022-12-19 09:25:00 Outpatient LAB90 NITA NITA [id number] Nita Seybeli 2022-12-19 08:45:00 2022-12-19 08:45:00 Outpatient SILAS HANDLEY [id number] Nita Ortegay[facility]eli 2022-12-19 00:00:00 2022-12-19 00:00:00 Outpatient NITA NITA [id number] Nita Seybeli 2022-12-01 09:30:00 2022-12-01 09:30:00 Outpatient SILAS HANDLEY NITA [id number] Nita Seybeli 2022-11-01 00:00:00 2022-11-01 00:00:00 Outpatient SILAS HANDLEY NITA [id number] Nita Orte[facility] 2022-11-01 00:00:00 2022-11-01 00:00:00 Outpatient NITA YA [id number] Nita Seybold 2022-10-29 00:00:00 2022-10-29 00:00:00 Outpatient NITA YA [id number] Nita Seybold 2022-10-16 00:00:00 2022-10-16 00:00:00 Outpatient SILAS HANDLEY NITA [id number] Nita Seybold 2022-10-14 00:00:00 2022-10-14 00:00:00 Outpatient MARJORIE FLORES [id number] Nita Seybold 2022-10-04 00:00:00 2022-10-04 00:00:00 Outpatient NITA YA [id number] Nita Seybeli 2022-09-20 10:30:00 2022-09-20 10:30:00 Outpatient RIK HASTINGS [id number] Nita Seybeli 2022-09-19 00:00:00 2022-09-19 00:00:00 Outpatient MARJORIE FLORES [id number] Nita Seybold 2022-09-18 11:00:00 2022-09-18 11:00:00 Outpatient MARJORIE FLORES NITA YA [id number] [facility] 2022-09-11 00:00:00 2022-09-11 00:00:00 Outpatient NITA YA [id number] [facility] 2022-09-08 00:00:00 2022-09-08 00:00:00 Outpatient NITA YA [id number] [facility] 2022-09-06 14:15:00 2022-09-06 14:15:00 Outpatient RIK HASTINGS NITA YA [id number] [facility] 2022-09-01 00:00:00 2022-09-01 00:00:00 Outpatient SILAS HANDLEY [id number] [facility] 2022-08-31 10:15:00 2022-08-31 10:15:00 Outpatient LAB90 NITA YA [id number] [facility] 2022-08-31 09:30:00 2022-08-31 09:30:00 Outpatient PRESILAS AVILES [id number] [facility] 2022-08-23 06:30:00 2022-08-23 06:30:00 Outpatient HIPOLLYDeepthi YA [id number] [facility] 2022-08-18 10:20:00 2022-08-18 10:20:00 Outpatient HIPOLLYDeepthi YA [id number] [facility] 2022-08-18 00:00:00 2022-08-18 00:00:00 Outpatient NITA YA [id number] [facility] 2022-08-03 08:00:00 2022-08-03 08:00:00 Outpatient HUNDREX Tilley [id number] [facility] 2022-08-02 00:00:00 2022-08-02 00:00:00 Outpatient SILAS HANDLEY [id number] [facility] 2022-07-18 00:00:00 2022-07-18 00:00:00 Outpatient SILAS HANDLEY [id number] Nita Seybold 2022-07-13 00:00:00 2022-07-13 00:00:00 Outpatient MD NITA SALOMON [id number] Nita Seybeli 2022-07-12 00:00:00 2022-07-12 00:00:00 Outpatient MARJORIE FLORES [id number] Nita Seybold 2022-07-10 00:00:00 2022-07-10 00:00:00 Outpatient SILAS HANDLEY [id number] Nita Seybeli 2022-06-27 10:40:00 2022-06-27 10:40:00 Outpatient NITA YA [id number] Nita Seybeli 2022-06-27 10:40:00 2022-06-27 10:40:00 Outpatient NITA YA [id number] Nita Seybeli 2022-06-27 00:00:00 2022-06-27 00:00:00 Outpatient SILAS HANDLEY [id number] Nita Seybeli 2022-06-19 12:15:00 2022-06-19 12:15:00 Outpatient LAB45 NITA YA [id number] Nita Seybeli 2022-06-19 11:30:00 2022-06-19 11:30:00 Outpatient MARJORIE FLORES [id number] Nita Seybold 2022-06-05 15:45:00 2022-06-05 15:45:00 Outpatient MARJORIE FLORES [id number] Nita Seybold 2022-06-01 14:40:00 2022-06-01 14:40:00 Outpatient NOCK, HUGH NITA YA [id number] Nita Seybold 2022-06-01 14:15:00 2022-06-01 14:15:00 Outpatient TOMOGRAPHY, CK NITA YA [id number] Nita Seybold 2022-05-31 10:15:00 2022-05-31 10:15:00 Outpatient LAB90 NITA YA [id number] Nita Seybold 2022-05-31 09:30:2022-05-31 09:30:00 Outpatient PREZASSILAS NITA [id number] [facility] 2022-05-16 10:05:00 2022-05-16 10:05:00 Outpatient NITA NITA [id number] [facility] 2022-05-16 10:00:00 2022-05-16 10:00:00 Outpatient NITA NITA [id number] [facility]ita Pratt 2022-05-16 09:55:00 2022-05-16 09:55:00 Outpatient NITA NITA [id number] [facility] 2022-05-16 09:50:00 2022-05-16 09:50:00 Outpatient NITA YA [id number] [facility]ita [facility] 2022-05-16 00:00:00 2022-05-16 00:00:00 Outpatient PRESILAS AVILES NITA YA [id number] [facility] 2022-05-15 10:30:00 2022-05-15 10:30:00 Outpatient LAB90 NITA YA [id number] [facility] 2022-05-15 10:00:00 2022-05-15 10:00:00 Outpatient PRESILAS AVILES NITA YA [id number] [facility] 2022-05-15 00:00:00 2022-05-15 00:00:00 Outpatient PRESILAS AVILES NITA YA [id number] [facility] 2022-05-08 09:00:00 2022-05-08 09:00:00 Outpatient MARJORIE FLORES [id number] [facility] 2021-11-07 03:06:00 2021-11-08 11:00:00 Inpatient Will Lagos [facility].01 [id number] [facility] 2021-11-07 15:20:00 2021-11-07 15:20:00 [facility] [id number] [facility] 2021-08-22 02:50:00 2021-08-22 02:50:00 Outpatient GC_SWHAWPRC _Cathey PRIV PRIV [id number] [facility] 2021-07-08 13:40:00 2021-07-08 14:36:55 Office Visit Charline Thibodeaux [facility] [id number] [facility] 2021-07-08 00:00:00 2021-07-08 00:00:00 Telephone Sarita Fu Amanda [facility] [id number] [facility] Results Test Description Test Time Test Comments Results Result Co mments Source [id number] 08:15:00* Test Item Value Reference Range Interpretation Comme nts GLUBED (test code = GLUBED) 121 MG/DL 70-105 H [id number] 01:23:00* Test Item Value Reference Range Interpretation Comme nts GLUBED (test code = GLUBED) 114 MG/DL 70-105 H [id number] 17:18:00* Test Item Value Reference Range Interpretation Comme nts GLUBED (test code = GLUBED) 134 MG/DL 70-105 H [id number] 13:30:00* Test Item Value Reference Range Interpretation Comme nts GLUBED (test code = GLUBED) 158 MG/DL 70-105 H [id number] 12:13:00* Test Item Value Reference Range Interpretation Comme nts GLUBED (test code = GLUBED) 175 MG/DL 70-105 H - XR ABDOMEN [id number] 11:08:00 [facility] 1960 Sex: FPatient Name: INA FARLEY Unit No: [id number] EXAMS: CPT CODE: [id number] XR ABDOMEN 1V 47024 Abdomen (KUB) History: INCORRECT SUTURE NEEDLE COUNT Comparison: None at this time Location: H45 Number of images: 2 The bowel gas pattern is unremarkable. The bones appear unremarkable. No pathologic calcifications are identified. There is a thin linear metallic structure measuring 5 cm in length projected over the upper abdomen, which the operating room personnel report is not in the area of interest and not the description of concern. A nasogastric tube terminates in the stomach. There are 3 small surgical structures superimposed over the upper sacrum. No curved surgical needle is demonstrated. IMPRESSION: There are no localizing signs in the abdomen. at 1108 Reported and signed by: JUAN VAZQUEZ M.D. CC: Will Payan MD Technologist: JANAE CISNEROS RT(R) Fluoro Time: DAP (Gy m2): Air Kerma (mGy): Trscr Dt/Tm: 11/07/2021 (1108) by:[email or web address] Printed Date/Time: 11/07/2021 (1111) Name: INA FARLEY [facility] Phys: Will Brown [address] : 1960 Age: 61 Sex: [place] [id number] Loc: P.SRG Exam Date: 11/07/2021 Status: REG SD PH: FAX: PAGE 1 Signed ReportGLUBED 2021-11-07 06:45:00* Test Item Value Reference Range Interpretation Comme nts GLUBED (test code = GLUBED) 116 MG/DL 70-105 H BASIC METABOLIC [id number] 11:39:00* Test Item Value Reference Range Interpretation [...] New Reference Range Apr 2020 CBC W/AUTO [id number] 11:32:00* Test Item Value Reference Range Interpretation [...] 0.0-0.20 N Notes Date/Time Note Provider Source 2024-06-19 09:11:40 Chief Complaint Patient presents with Follow-up Follow up on tingling in face and body. She was advised to follow up in 1 week. Kimberlyn Hurley MA [facility] 2024-06-12 09:11:27 Chief Complaint Patient presents with OTHER Patient is present to follow up on anxiety Eduardo Hart MA [facility] Eduardo Hart MA [facility] 2024-05-15 08:33:35 Chief Complaint Patient presents with Cough Cough for 8 days, chest congestion, hoarse, fatigue. No fever. No body aches. Negative flu test Sunday. No COVID test. Kimberlyn Hurley MA [facility] 2024-04-23 15:58:19 Chief Complaint Patient presents with Diabetes 3 month follow up Eduardo Hart MA [facility] 2024-02-27 14:24:12 Chief Complaint Patient presents with Consultation BOTOX Kelly Brito CMA [facility] 2024-01-23 10:03:48 Chief Complaint Patient presents with Follow-up Left foot toe injury 2-3 weeks ago Chantelle Guzmán LVN [facility] 2024-01-14 08:41:09 Chief Complaint Patient presents with Consultation Patient is here for the right knee, present since couple of years ago, no recent injuries, hx of surgery in left knee 3 years ago, patient stated pain is constant and radiates to the right hip down to the right leg, tx'd meloxicam,tramadol, steroid injection 12/03 and ibuprofen,occupation assistant warehouse manager. JOVANY Rosario [facility] 2023-12-26 10:11:13 Chief Complaint Patient presents with Incontinence Urinary incontinence. Patient has a history of bladder lift. Wants to discuss possible Botox injections. She says she as done well with those in the past. Yazmin Nicole LVN [facility] 2023-10-15 16:40:36 Chief Complaint Patient presents with Follow-up Chronic right leg pain Chantelle Guzmán LVN [facility] 2023-08-24 10:36:21 Chief Complaint Patient presents with Follow-up Patient here for f/u, states she is still have back and leg pain, right Desi Coreas MA I T Desi HCAVIS I [facility] 2023-07-23 11:07:23 Chief Complaint Patient presents with Fatigue For almost a month always feels fatigue and tired. Carolyn Burks [facility] 2023-07-13 13:34:27 Chief Complaint Patient presents with Fatigue Fatigue with tension headaches and pressure. Gets off balance at times. Left ear pain with blurred vision. Throat Problem Chantelle Guzmán LVN [facility] 2023-06-27 10:37:38 Chief Complaint Patient presents with Follow-up DM Last A1C Collected: 12/19/2022 6mo ago reading at 6.2 [facility] 2023-05-02 10:33:02 Chief Complaint Patient presents with Back Pain Complete back pain Hx of Botox injection w/ Urology in the past Desi Coreas MA I [facility] 2021-11-08 07:26:00 [facility] gynecology progress note report #: [id number] report status: signed date: 11/08/21 time: 725 patient: ina farley unit #: [id number] room #: [facility] bed: 1 : 62 age: 61 sex: f attend: will payan md adm dt: 11/07/21 author: will payan md atte ntion *edits and/or addenda must be made in patient keeper for this note. * * edits and ammendments created in [employer] are not visible * * in patient keeper or the legal medical record (hpf). * -- assessment and plan -- problems: 1: prolapse of vaginal vault after hysterectomy a/p: well post op home today, meds restrictions and follow up reviewed -- subjective -- patient narrative: no complaints -- objective -- vitals (11/07 07:26 - 11/08 07:26): temperature c: 36.7 (36.6 - 37.2) temperature source: oral pulse rate 72 (72 - 96) respiratory rate: 16 (16 - 20) bp: 99/63 (91/55 - 115/76) i/os (11/07 07:00 - 11/08 07:00): net 490.00 intake 2,140.00 output 1,650 additional v/s: in a chair with a smile indwelling osorio: no discontinued: yes comments: good output -- data -- medications ondansetron hcl/pf 4 mg iv q4h prn tramadol hcl 100 mg po q4h prn metformin hcl 500 mg po tid petrolatum,white 1 applic right eye q8h prn naproxen 500 mg po bid hydromorphone hcl 1 mg iv q4h prn acetaminophen 1000 mg po q6h dextrose 50%-water 25 ml iv asdir prn insulin lispro 0 units subq q4hr tramadol hcl 50 mg po q4h prn zolpidem tartrate 5 mg po bedtime prn glucagon 1 mg im asdir prn sodium chloride 0.9% 1000 ml iv .q10h promethazine hcl with/in sodium chloride 50 ml bag 25 mg iv q4h prn labs glu bed (11/08/21 01:11) glubed 114 h glu bed (11/07/21 17:07) glubed 134 h glu bed (11/07/21 13:19) glubed 158 h glu bed (11/07/21 12:02) glubed 175 h vitals temperature c: 11/08/21 06:26 11/08/21 05:08 36.7 11/08/21 00:17 36.9 11/07/21 21:14 36.9 11/07/21 16:57 37.2 11/07/21 16:49 11/07/21 16:19 11/07/21 15:49 11/07/21 14:49 11/07/21 14:34 pulse rate 11/08/21 06:26 72 11/08/21 05:08 77 11/08/21 00:17 74 11/07/21 21:14 83 11/07/21 16:57 96 11/07/21 16:49 88 11/07/21 16:19 85 11/07/21 15:49 82 11/07/21 14:49 85 11/07/21 14:34 77 respiratory rate: 11/08/21 06:26 11/08/21 05:08 11/08/21 00:17 11/07/21 21:14 16 11/07/21 16:57 20 11/07/21 16:49 11/07/21 16:19 11/07/21 15:49 11/07/21 14:49 11/07/21 14:34 blood pressure: 11/08/21 06:26 99 / 63 11/08/21 [...] by will payan md on 11/08/21 at 0727 atte ntion *edits and/or addenda must be made in patient keeper for this note. * * edits and ammendments created in [facility] are not visible * * in patient keeper or the legal medical record (hpf). * [facility] #: [id number] end of report [facility] 2021-11-08 07:20:00 [facility] ([facility]) med order sheet report #: [id number] report status: signed date: 11/08/21 time: 719 patient: ina farley unit #: [id number] room #: [id number] bed: 1 : 61 age: 61 sex: f attend: will payan md adm dt: 11/07/21 author: will payan md atte ntion *edits and/or addenda must be made in patient keeper for this note. * * edits and ammendments created in [facility] are not visible * * in patient keeper or the legal medical record ([facility]). * discharge medication reconciliation discharge medication list calcium with vit.d3 dose: po - takes 600mg daily magnesium oxide tab (nf) (mag ox tab (nf)) dose: takes as needed oral - takes as needed metformin tab (glucophage tab) dose: takes 2-3x /day oral - takes 2-3x /day acetaminophen tab (tylenol tab) dose: 1000mg po q6h - for three days then as needed naproxen tab (naprosyn tab) dose: 250 mg po bid - for three days then as needed tramadol tab (ultram tab) dose: 50mg po q4h prn pain scale 4-6, disp: 6 tablet, refills: 0 stopped hospital medications dc'd: dextrose 50% 50 ml syringe (d50w 50 ml syringe) 25ml iv asdir prn hypoglycemiadc'd: glucagon inj (glucagon inj) 1mg im asdir prn hypoglycemia if no iv/enteraldc'd: hydromorphone inj (dilaudid inj) 1mg iv q4h prn breakthrough pain and npodc'd: insulin (lispro) inj (humalog inj) 0 units subq q4hrdc'd: ondansetron inj (zofran inj) 4mg iv q4h prn nausea and vomitingdc'd: petrolatum ophth oint (lacri-lube ophth oint) 1applic right eye q8h prn dry eyesdc'd: promethazine inj (phenergan inj) 25mg 102 mls/hr iv q4h prn nausea and vomitingin sodium chloride 0.9% (ns) 50ml dc'd: sodium chloride 0.9% (ns) 1000ml 100 mls/hr iv dc'd: tramadol tab (ultram tab) 100mg po q4h prn pain scale 7-10dc'd: zolpidem tab (ambien tab) 5mg po bedtime prn insomniaelectronically signed in patientkeeper by will payan on 11/08/21 07:18 electronically signed by will payan md on 11/08/21 at 0720 atte ntion *edits and/or addenda must be made in patient keeper for this note. * * edits and ammendments created in [facility] are not visible * * in patient keeper or the legal medical record (hpf). * [facility] #: [id number] end of report [facility] 2021-11-07 19:12:00 [facility] ([facility] gynecology progress note report #: [id number] report status: signed date: 11/07/21 time: 1911 patient: ina farley unit #: [id number] room #: [id number] bed: 1 : 61 age: 61 sex: f attend: will payan md adm dt: 11/07/21 author: will payan md atte ntion *edits and/or addenda must be made in patient keeper for this note. * * edits and ammendments created in [employer] are not visible * * in patient keeper or the legal medical record ([facility]). * -- assessment and plan -- problems: 1: prolapse of vaginal vault after hysterectomy a/p: well post op routine care -- subjective -- patient narrative: no complaints -- objective -- vitals (11/06 19:12 - 11/07 19:12): temperature c: 37.2 (36.5 - 37.2) pulse rate 96 (74 - 96) respiratory rate: 20 (16 - 20) bp: 105/67 (104/67 - 118/78) additional v/s: in bed nad indwelling osorio: yes discontinued: no comments: urine clear good output -- data -- medications naloxone hcl 0.04 mg iv pacu q2min prn labetalol hcl 10 mg iv pacu q5min prn promethazine hcl with/in sodium chloride 50 ml bag 6.25 mg iv pacu once prn metformin hcl 500 mg po tid pregabalin 75 mg po pacu hydralazine hcl 10 mg iv pacu q10min prn flumazenil 0.2 mg iv pacu asdir prn morphine sulfate 2 mg iv pacu q5min prn hydromorphone hcl 0.5 mg iv pacu q10min prn oxycodone hcl 5 mg po pacu q4h prn epinephrine 2.25% 0.5 ml neb pacu asdir prn meperidine hcl 12.5 mg iv pacu once prn tramadol hcl 50 mg po q4h prn sodium chloride 0.9% 1000 ml iv pacu iv fluid zolpidem tartrate 5 mg po bedtime prn atropine sulfate 0.5 mg iv pacu q5min prn sodium chloride 0.9% 1000 ml iv .q10h ondansetron hcl/pf 4 mg iv q4h prn tramadol hcl 100 mg po q4h prn petrolatum,white 1 applic right eye q8h prn naproxen 500 mg po bid acetaminophen 1000 mg iv pacu hydromorphone hcl 1 mg iv q4h prn acetaminophen 1000 mg po q6h dextrose 50%-water 25 ml iv asdir prn insulin lispro 0 units subq q4hr diphenhydramine hcl 12.5 mg iv pacu once prn glucagon 1 mg im asdir prn promethazine hcl with/in sodium chloride 50 ml bag 25 mg iv q4h prn labs glu bed (11/07/21 17:07) glubed 134 h glu bed (11/07/21 13:19) glubed 158 h glu bed (11/07/21 12:02) glubed 175 h glu bed (11/07/21 06:35) glubed 116 h vitals temperature c: 11/07/21 16:57 37.2 11/07/21 16:49 11/07/21 16:19 11/07/21 15:49 11/07/21 14:49 11/07/21 14:34 11/07/21 14:19 11/07/21 14:05 11/07/21 13:49 11/07/21 13:34 pulse rate 11/07/21 16:57 96 11/07/21 16:49 88 11/07/21 16:19 85 11/07/21 15:49 82 11/07/21 14:49 85 11/07/21 14:34 77 11/07/21 14:19 79 11/07/21 14:05 85 11/07/21 13:49 86 11/07/21 13:34 78 respiratory rate: 11/07/21 16:57 20 11/07/21 16:49 11/07/21 16:19 11/07/21 15:49 11/07/21 14:49 11/07/21 14:34 11/07/21 14:19 11/07/21 14:05 18 11/07/21 13:49 11/07/21 13:34 blood pressure: 11/07/21 16:57 105 / 67 11/07/21 [...] by will payan md on 11/07/21 at 1913 atte ntion *edits and/or addenda must be made in patient keeper for this note. * * edits and ammendments created in [facility] are not visible * * in patient keeper or the legal medical record (hpf). * [facility] #: [id number] end of report [facility] 2021-11-07 11:38:00 [id number] [place] [address] patient name: ina farley admit date: 11/07/21 account no: [id number] room no: [id number] age: 61 report type: operative report sex: f admitting physician:will payan md attending physician:will payan md operation date: 11/07/2021 preoperative diagnoses: prolapse of vaginal vault after hysterectomy, n99.3; cystocele, n81.11; rectocele, n81.6. procedures: laparoscopy with extensive lysis of adhesions, laparoscopic y-mesh sacral colpopexy, 95592; combined anterior and posterior repair, 81994; cystoscopy, 15762. postoperative diagnoses: prolapse of vaginal vault after hysterectomy, n99.3; cystocele, n81.11; rectocele, n81.6 with severe post-procedure pelvic adhesive disease, n99.4. surgeon: will payan md assistant warehouse manager: mitzi torres, licensed ophthalmology assistant. anesthesia: general endotracheal anesthesia. biopsy: rectocele. complications: none. drains: osorio to gravity. estimated blood loss: 5 ml. urine output: 250 ml. findings: complete reduction of all prolapse. no bladder or ureteral injury. strong jet of urine from each ureter, 50 grams of d50 dextrose placed in the cystoscopic irrigant, 17-amharic sheath 70-degree lens used for cystoscopic review, 250 ml placed in the bladder. photos taken of the ureters and the bladder from the cystoscopic view. complete retroperitonealization of the mesh. no rectal injury and digital rectal exam with rectocele repair, massive anterior abdominal wall adhesions of omentum and posterior cul-de-sac adhesions of sigmoid. needle count was incorrect and pelvic and upper abdomen x-ray showed no surgical needles in the abdomen. procedure in detail: the patient was taken to the operating room where general endotracheal anesthesia was found to be adequate. she was prepped and draped in normal sterile technique after being placed in dorsal lithotomy position in [facility] by tx. scds were activated prior to induction. antibiotics patient name: ina farley were administered. a rod vaginal elevator with ally assist was placed in the vagina. osorio was used to drain the bladder completely. gloves were changed. attention was placed to left upper quadrant. frazier's point was marked with a marking pen, injected with local anesthesia followed by 11-blade skin incision, then a direct 5-mm port entry without incident. with the patient in steep trendelenburg, the omental adhesions were identified from the umbilicus all the way down into the pelvis. photos were taken. a left lower quadrant port was placed and adhesions were initially taken down for access to the pelvis. a camera was moved into the pelvis and there was a window of opportunity for placement of suprapubic port, which was placed in a similar fashion as previously described. placement of the camera there showed no small bowel involved in the anterior abdominal wall omental adhesions. harmonic was then used to take the upper adhesions down. umbilical port was placed as previously described, then right lower quadrant port as previously described. old scars from abdominoplasty were used for port placement. harmonic was then used to take down the omental adhesions with complete release from the anterior abdominal wall. attention was then placed to the pelvis and epiploica and sigmoid were adhered to the vagina and anterior cul-de-sac. these were taken down with endoshears with meticulous dissection without compromise to the sigmoid colon. with the colon completely mobilized from the anterior and posterior vagina, the bladder was retrofilled and the peritoneum was opened over the apex of the vagina and the vesicovaginal space was identified and developed ____ 8 cm inferior to the apex of the vagina. the rectovaginal space was then developed with further mobilization of the adhesions from the right pelvic sidewall. the rectovaginal space was developed in the avascular plane without incident, and a communication to the right pelvic sidewall peritoneum was opened completing the posterior dissection. attention was placed to the sacral promontory where the peritoneum was opened with direct visualization of the ureter and sigmoid all the way down to the medial longitudinal ligament, which was exposed 2 x 2 cm and a photo was taken. the peritoneum of the right paracolic gutter was then opened and the retroperitoneal space dissected. the peritoneal communication was then connected to the uterosacral dissection from the right side with direct visualization of the ureter, sigmoid, and rectum. attention was then placed to the anterior compartment for the cystocele repair. horizontal mattress sutures were placed with 2-0 vicryl in the anterior compartment; first suture placed at the apex, the other approximately 4 cm distally. four sutures were placed in the anterior compartment, followed by extracorporeal knot tying to reduce the cystocele in the anterior compartment. with all 4 sutures tied, the mesh was then introduced after measuring the anterior and posterior compartment and applied to the anterior and posterior vagina with a combination of 2-0 ethibond and 2-0 vicryl sutures. with the mesh completely applied to the vagina, the vagina was then elevated maximally and then reduced by 2 cm. protack was used to secure the mesh at the sacral promontory, folding the mesh over on itself to reduce the footprint at the sacral promontory. three tacks were placed. excess mesh was trimmed. the peritoneum was then closed with 2-0 v-loc suture with complete retroperitonealization of the mesh. the initial count was not correct. the needle count was 34. the surgical needle packs and needle count on the field was 36. we had 2 additional needles on the field, which could not be accounted for. cystoscopy was performed showing a strong jet of urine from each ureter and no compromise to the bladder. osorio was replaced. at that time, all ports were removed after one last laparoscopic review showed no bleeding or hematoma formation, and a photo taken of the completely retroperitonealized mesh. x-rays were performed of the abdomen and pelvis showing no surgical needle in the patient name: ina farley abdomen or pelvis. attention was then placed to the rectocele. the perineal body was marked with a marking pen, followed by #15 blade scalpel for skin incision and removal of the perineal skin and distal rectocele, vaginal skin with bovie cautery followed by undermining the rectocele in the midline with metzenbaum scissors, mobilizing the rectocele, followed by horizontal mattress sutures placed after clean glove digital rectal exam confirmed no buttonhole of the rectum. after all sutures were placed in a horizontal mattress fashion, clean glove digital rectal exam again showed no compromise to the rectum. sutures were then tied reducing the rectocele. the rectocele vaginal epithelium was trimmed with complete reduction of the rectocele and reinforcement of the perineal body with 0 vicryl, 2-0 vicryl was then used to close the vaginal skin and perineal body. this was completely hemostatic. osorio had been replaced. each port site was injected with local anesthesia followed by 4-0 monocryl and dermabond for final skin closure. sponge and instrument count was correct at that point with review of x-rays confirming no surgical needle in the abdomen and pelvis. the patient was reversed from anesthesia and transferred to the postanesthesia care unit in stable condition. dictated by: will payan md wt: op:lilia/chapincito/sophia dd: 11/07/2021 11:38:10 dt: 11/07/2021 13:42:08 conf#: [id number]/did#: [id number] authenticated by will payan md on 11/07/2021 04:30:01 pm electronically signed by will payan md on 11/07/21 at 0430 patient name: ina farley [facility] 2021-11-07 11:27:00 [facility] ([facility] med order sheet report #: [id number] report status: signed date: 11/07/21 time: 112 patient: ina farley unit #: [id number] room #: bed: : 61 age: 61 sex: f attend: will payan md adm dt: 11/07/21 author: will payan md atte ntion *edits and/or addenda must be made in patient keeper for this note. * * edits and ammendments created in [employer] are not visible * * in patient keeper or the legal medical record (hpf). * admission medication reconciliation -- continued / changed home medications -- home: metformin tab (glucophage tab) oral (takes 2-3x /day) hosp: metformin tab (glucophage tab) 500 mg oral starting in am tomorrow day - takes 2-3x /day -- stopped home medications -- home: calcium with vit.d3 (takes 600mg daily) home: magnesium oxide tab (nf) (mag ox tab (nf)) oral (takes as needed) electronically signed in patientkeeper by will payan on 11/07/21 11:26 electronically signed by will payan md on 11/07/21 at 1127 atte ntion *edits and/or addenda must be made in patient keeper for this note. * * edits and ammendments created in [employer] are not visible * * in patient keeper or the legal medical record ([facility]). * rpt #: [id number] end of report [facility] 2021-11-07 11:24:00 [facility] brief operative report report #: [id number] report status: signed date: 11/07/21 time: 1124 patient: ina farley unit #: [id number] room #: bed: : 61 age: 61 sex: f attend: will payan md adm dt: 11/07/21 author: will payan md atte ntion *edits and/or addenda must be made in patient keeper for this note. * * edits and ammendments created in [employer] are not visible * * in patient keeper or the legal medical record ([facility]). * -- brief op note -- pre-operative diagnosis: pvvaf, cystocele, rectocele post-operative diagnosis: same with severe pelvic adhesions name of procedure: l-scope extensive jaxson, y-mesh sacral colpopexy, a p repair cystoscopy surgeon: will payan md assistant warehouse manager(s): fabiano torres lfa findings: no gu or gi injury complete reduction pop, mesh retroperitoneal estimated blood loss (ml's): 5 specimen(s) removed and/or altered: rectocele complication(s): none drain(s): osorio signed in patientkeeper by will payan md on 11/07/21 at 11:26 electronically signed by will payan md on 11/07/21 at 1126 atte ntion *edits and/or addenda must be made in patient keeper for this note. * * edits and ammendments created in [employer] are not visible * * in patient keeper or the legal medical record (hpf). * [facility] #: [id number] end of report [facility] 2021-11-04 09:01:00 [id number] [place] [address] patient name: ina farley admit date: 11/07/21 account no: [id number] room no: age: 61 report type: preop hp report sex: f admitting physician: attending physician:will payan md admission date: 11/07/2021 date of planned procedure: 11/07/2021 preoperative diagnoses: prolapsed vaginal vault after hysterectomy, n99.3; cystocele, n81.11; and rectocele, n81.6. planned procedure: will be laparoscopy with planned y-mesh sacrocolpopexy, 94400; combined anterior and posterior repair, 07562; and cystoscopy, 44353. chief complaint: prolapse. history of present illness: the patient presented for consultation with at least 7-month history of progressively worsening prolapse associated with pelvic pain. she presented with a photograph showing prolapse extending to 1 cm past the hymen. she also reported mixed urinary incontinence symptoms. she has a history of 4 vaginal deliveries and an abdominal hysterectomy with removal of her fallopian tubes and ovaries in 2003, for fibroids. past medical history: significant for diabetes. past surgical history: tubal sterilization, tubal reversal, hysterectomy with bso, breast lift abdominoplasty, cholecystectomy, and knee surgery. habits: she does not use alcohol. she has never been a smoker. allergies: no known drug allergies. medications: trazodone 50 mg at bedtime and metformin 500 mg once daily. review of systems: constitutional: denies weight change, lethargy, or fatigue. heent: denies head, ears, eyes, nose, or throat concerns. pulmonary: denies coughing, wheezing, or shortness of breath. cardiovascular: denies chest pain, palpitations, or irregular heartbeat. gastrointestinal: denies nausea, vomiting, diarrhea, or constipation. musculoskeletal: denies aches or pains in her distal muscle or joints. neurological: denies weakness, numbness, dizziness, or other deficits. psychological: denies anxiety or depression. physical examination: general appearance: she appears her stated age and in no apparent distress. she is a good historian. patient name: ina farley vital signs: she is 64 inches tall. she weighs 173 pounds giving her a bmi of 30. blood pressure 121/84, temperature 97.6, heart rate 60 beats per minute, and oxygen saturation 96% on room air. heent: normocephalic and atraumatic. lungs: clear to auscultation bilaterally. heart: s1and s2 and regular. abdomen: soft and nontender with healed abdominoplasty scars. extremities: normal motor function and tone neurologically: intact. psychological: no anxiety or depression. pelvic: she had normal female external genitalia with mild atrophy. urethra was with hypermobility. negative supine empty stress test. bladder was nontender. vagina was without abnormal discharge with atrophy. pop-q score aa 0, ba +1, c -4, ap -1, bp -1, total vaginal length 9, perineal body 2.5, and genital hiatus 4.5. perirectal skin normal. levator ani nontense, nontender bilaterally. elevation of the apex did not reduce prolapse in the anterior compartment. laboratory data: preoperative laboratory evaluation included urodynamics evaluation on 09/27/2021, she did not have a stress incontinence event. preoperative blood work dated , co2 24, glucose 116, bun 10, creatinine 0.6, calcium 8.8, sodium 141, potassium 4.2, and chloride 103. hemoglobin 14.4, hematocrit 41.8, wbc 9.7, and platelets 463. impression: previously stated symptomatic pelvic organ prolapse for definitive surgical therapy. the patient understood risks, benefits, limitations for procedure to be performed as an outpatient overnight stay. she was advised to various treatment options and opted for mesh sacrocolpopexy and mesh colpopexy. consents were signed in the office. the patient also understood she would not have an anti-incontinence procedure performed based on her physical examination and urodynamics findings. dictated by: will payan md wt: preophp:lilia/chapincito/sophia dd: 11/04/2021 09:01:31 dt: 11/04/2021 10:26:35 conf#: [id number]/did#: [id number] authenticated by will payan md on 11/07/2021 11:23:10 am electronically signed by will payan md on 11/07/21 at 1123 patient name: ina farley [facility]
[2024-06-21] MEDS ORDERED: MECLIZINE HCL 12.5 MG TAB ONE (09:39)
--- NOTE | 2024-06-21 09:54 | RAD REPORT ---
Procedure: Chest Single View HISTORY: Chest pain COMPARISON: 2020 FINDINGS: The lungs appear clear of acute infiltrate. Calcified granuloma left lung No significant pleural effusion noted. The heart is normal size. IMPRESSION: No acute abnormality is displayed.
[2024-06-21 10:25] LABS: Specific Gravity 1.016 (1.005-1.030); Sqamous Epithelial <5 /HPF (None Seen); Urine Bacteria None Seen /HPF (<20); Urine Bilirubin NEGATIVE (Negative); Urine Blood Negative (Negative); Urine Clarity Clear (Clear); Urine Color Light-Yellow (Yellow); Urine Crystals Unidentified Few /HPF (None Seen); Urine Culture Reflex Order NOT NEEDED; Urine Glucose NEGATIVE (Negative); Urine Ketones NEGATIVE (Negative); Urine Micro Reflex YN NO BILL MICROSCOPIC; Urine Nitrite NEGATIVE (Negative); Urine Protein NEGATIVE (Negative); Urine RBC <5 /HPF (None Seen); Urine Urobilinogen Normal (Normal); Urine WBC <5 /HPF (<5)
[2024-06-21 10:58] LABS: Absolute Basophils 0.1 K/uL (0-0.5); Absolute Monocytes 0.4 K/uL (0.1-1.3); Basophils % 1.1 % (0-1.3); Eosinophils % 0.6 % (0-4.4); Hematocrit 41.6 % (36.0-45.0); Hemoglobin 14.4 g/dL (12.0-15.0); Lymphocytes % 30.8 % (15.3-44.8); MCHC 34.6 g/dL (32.0-36.0); MCV 83.8 fL (80-100); MPV 7.1 fL (7.6-11.3); Monocytes % 6.4 % (3.3-12.3); Neutrophils % 61.1 % (41.7-73.7); Nucleated Red Blood Cells % 0.1 % (0-0); Platelets 372 thou/uL (152-406); RBC Red Blood Cell Count 4.96 M/uL (3.86-4.86); Red Cell Distribution Width 13.8 % (12.1-15.2)
[2024-06-21 11:02] LABS: PT Prothrombin Time 10.8 SECONDS (10-13.0); Protime INR 0.94
[2024-06-21 11:15] LABS: ALT/SGPT 25 U/L (13-56); AST/SGOT 14 U/L (15-37); Albumin 3.8 g/dL (3.4-5.0); Alkaline Phosphatase 113 U/L (45-117); Anion Gap 8.7 mEq/L (5.0-15.0); BUN Blood Urea Nitrogen 8 mg/dL (7-18); Bicarbonate 27 mEq/L (21-32); Bilirubin Direct 0.2 mg/dL (0-0.2); Bilirubin Indirect, Calculated 0.8 mg/dL (0.2-0.8); Globulin 3.7 g/dL (2.3-3.5); Glomerular Filtration Rate 99 ml/min (=/>90); Glucose Level 129 mg/dL (74-106); Magnesium 2.1 mg/dL (1.6-2.4); NT PRO-BNP 75 pg/mL (<125); Potassium 3.7 mEq/L (3.5-5.1); Protein, Total 7.5 g/dL (6.4-8.2); Sodium Level 140 mEq/L (136-145)
[2024-06-21 11:17] LABS: Troponin High Sensitivity < 3.0 pg/mL (<58.9)
--- NOTE | 2024-06-21 12:07 | RAD REPORT ---
EXAM: CT brain without contrast HISTORY: Numbness COMPARISON: 2023 TECHNIQUE: Multiple contiguous axial images were obtained and a CT of the brain without contrast.. Sagittal and coronal reconstruction performed. Automated exposure control, adjustment of the mA and/or kV according to patient size, and/or iterative reconstruction. Unless otherwise specified, incidental f indings do not require dedicated imaging follow-up FINDINGS: An intracranial bleed is not seen Ventricles are normal caliber No extra-axial fluid collection noted No significant hypodensity within the brain No fluid within the visualized sinuses or mastoids noted. IMPRESSION: No acute intracranial abnormality noted. If the patient continues to have symptoms to suggest an acute intracranial abnormality then MRI of th e brain would be recommended.
--- NOTE | 2024-06-21 12:13 | RAD REPORT ---
EXAMINATION: CTA HEAD CLINICAL INDICATION: Numbness TECHNIQUE: Axial CT images were obtained through the head after 100 cc Isovue-370 intravenous contras t utilizing angiographic protocol with 3D post-processing (maximum intensity projection images, volume rendered images and/or shaded surface rendered images). One or more of the following dose red uction techniques were used: Automated exposure control, adjustment of the mA and/or kV according to patient size, and/or iterative reconstruction. Unless otherwise specified, incidental findings do not require dedicated imaging follow-up. COMPARISON: None FINDINGS: Distal internal carotid, basilar, anterior cerebral, middle cerebral and posterior cerebral arteries do not demonstrate a significant stenosis An aneurysm not noted. No large vessel occlusion IMPRESSION: No acute vascular abnormality displayed
--- NOTE | 2024-06-21 12:13 | RAD REPORT ---
EXAMINATION: Neck Angio CLINICAL INDICATION: Numbness TECHNIQUE: Axial CT images were obtained from the aortic arch to the skull base after intravenous adm inistration of 100 cc Isovue-370 utilizing angiographic protocol. Multiplanar reformats, as well as 3D post-processing (maximum intensity projection images, volume rendered images and/or shaded surface rendered images) were generated and reviewed. One or more of the following dose reduction techniques were used: Automated exposure control, adjustment of the mA and/or kV according to patient size, and/or iterative reconstruction. Unless otherwise specified, incidental findings do not require dedicated imaging follow-up. COMPARISON: No prior exam. FINDINGS: The visualized aortic arch and great vessels do not demonstrate a significant abnormality Common carotid, internal carotid and external carotid arteries unremarkable Vertebral arteries unremarkable No significant stenosis noted. A dissection is not seen. Methods for NASCET criteria: Mild stenosis, 0% to 49%; Moderate stenosis 50% to 69%; Severe stenosis, 70% to 99% IMPRESSION: No acute vascular abnormality displayed
--- NOTE | 2024-06-21 12:38 | EDPHYS ---
Physician Documentation [facility] Name: Omayra Mancia Age: 63 yrs Sex: Female : 1960 Arrival Date: 06/21/2024 Time: 09:04 Bed 17 Private MD: ED Physician Norm Schwarz HPI: 06/21 09:25 This 63 yrs old Female presents to ER via Ambulatory with complaints of S/S of cp Possible Stroke. 09:25 The patient's problem is reported as paresthesias, all over. Onset: The cp symptoms/episode began/occurred 2-3 weeks ago. Duration: The episode is continuous, the symptoms became worse yesterday. 09:25 Associated signs and symptoms: Pertinent positives: increased weakness to left arm and cp left leg, Pertinent negatives: abdominal pain, chest pain. 09:25 Patient is a 63-year-old female with past medical history significant for diabetes and cp hypertension. Patient presents with complaints of generalized tingling for the last 2 to 3 weeks. She reports increased weakness to her left arm and left leg. Patient does have a history of stroke in the past in which she continues to have left-sided weakness but reports over the past 2 to 3 weeks she feels like her left arm and left leg are weaker. Historical: - Allergies: 09:30 No Known Allergies; kc6 - PMHx: 09:30 diabetes mellitus; Cerebrovascular accident; 2020; Bronchitis; insomnia (Bronchitis); kc6 Fibromyalgia; Arthritis; Hypertensive disorder; - PSHx: 09:30 Cholecystectomy; Arthroplasty of knee; hysterectomy; kc6 - Immunization history:: Adult Immunizations up to date. - Infectious Disease History:: Denies. - Social history:: Smoking status: Patient denies any tobacco usage or history of. ROS: 09:28 Constitutional: Negative for body aches, chills, fever, poor PO intake, cp 09:28 Cardiovascular: Positive for chest pressure, Negative for edema, palpitations, cp 09:28 Respiratory: Negative for cough, shortness of breath, wheezing, :28 Abdomen/GI: Negative for abdominal pain, nausea, vomiting, and diarrhea, :28 Neuro: Positive for dizziness, weakness, tingling all over, Negative for altered mental status, headache, 09:28 Eyes: Negative for injury, pain, redness, and discharge, cp 09:28 Neck: Negative for pain with movement, pain at rest, stiffness, cp 09:28 All other systems are negative, Exam: 09:33 Constitutional: The patient appears in no acute distress, alert, awake, cp non-diaphoretic, non-toxic, well developed, well nourished, uncomfortable, 09:33 Head/Face: Normocephalic, atraumatic. cp 09:33 Eyes: Periorbital structures: appear normal, Conjunctiva: normal, no exudate, no cp injection, Sclera: no appreciated abnormality, Lids and lashes: appear normal, bilaterally, 09:33 ENT: External ear(s): are unremarkable, Nose: is normal, Mouth: Lips: moist, Oral cp mucosa: moist, Posterior pharynx: Airway: no evidence of obstruction, patent, swelling, is not appreciated, erythema, is not appreciated, 09:33 Neck: ROM/movement: is normal, is supple, 09:33 Chest/axilla: Inspection: normal, Palpation: is normal, no crepitus, no tenderness, 09:33 Cardiovascular: Rate: normal, Rhythm: regular, Edema: is not appreciated, JVD: is not appreciated, 09:33 Respiratory: the patient does not display signs of respiratory distress, Respirations: normal, no use of accessory muscles, no retractions, labored breathing, is not present, Breath sounds: are clear throughout, no decreased breath sounds, no stridor, no wheezing, 09:33 Abdomen/GI: Inspection: abdomen appears normal, Palpation: abdomen is soft and non-tender, in all quadrants, 09:33 Back: pain, is absent, ROM is normal, 09:33 Neuro: Orientation: to person, place \T\ time. Mentation: is normal, Motor: moves all fours, mild decreased strength left arm and left leg, Sensation: tingling, that is mild, generalized, 09:49 ECG was reviewed by the Attending Physician. cp Vital Signs: 09:28 BP 146 / 83; Pulse 73; Resp 16 S; Temp 98.7(O); Pulse Ox 97% on R/A; Weight 78.93 kg kc6 (M); Height 5 ft. 1 in. (R); Pain 0/10; 10:16 BP 139 / 76; Pulse 68; Resp 16 S; Pulse Ox 98% on R/A; kc6 12:53 BP 124 / 78; Pulse 64; Resp 18 S; Pulse Ox 99% on R/A; 6 09:28 Body Mass Index 32.88 (78.93 kg, 154.94 cm) [facility] 09:28 Pain Scale: Adult kc6 NIH Stroke Scale Scores: 09:28 NIHSS Score: 2 kc6 12:33 NIHSS Score: 1 cp MDM: 09:13 Medical Screening Exam initiated cp 12:35 Data reviewed: vital signs, nurses notes, lab test result(s), EKG, radiologic studies, cp CT scan, plain films, I have discussed the patient's presentation/case with the attending Emergency Department Physician; and as a result, I will admit patient. 12:35 Management of patient was discussed with the following: Hospitalist: DR Iyer will cp admit after discussion. I considered the following discharge prescriptions or medication management in the emergency department Medications were administered in the Emergency Department. See MAY. 06/21 09:25 Order name: Basic Metabolic Panel; Complete Time: 11:21 06/21 11:21 Interpretation: Normal except: CL 108; GLUC 129. 06/21 09:25 Order name: CBC with Diff; Complete Time: 11:13 06/21 11:13 Interpretation: Normal except: RBC 4.96; MPV 7.1. 06/21 09:25 Order name: LFT's; Complete Time: 11:21 06/21 12:08 Interpretation: Normal except: AST 14; GLOB 3.7; A/G 1.0. 06/21 09:25 Order name: Magnesium; Complete Time: 11:21 06/21 12:09 Interpretation: MG 2.1; Reviewed. 06/21 09:25 Order name: NT PRO-BNP; Complete Time: 11:21 06/21 12:09 Interpretation: Reviewed. 06/21 09:25 Order name: PT-INR; Complete Time: 11:13 06/21 09:25 Order name: Troponin HS; Complete Time: 11:21 06/21 11:21 Interpretation: Reviewed. 06/21 09:25 Order name: Urinalysis W/Microscopic; Complete Time: 10:34 cp 06/21 10:34 Interpretation: Normal except: UPH 8.0. 06/21 12:52 Order name: Basic Metabolic Panel EDMS 06/21 12:52 Order name: Basic Metabolic Panel EDMS 06/21 12:52 Order name: Basic Metabolic Panel EDMS 06/21 12:52 Order name: Basic Metabolic Panel EDMS 06/21 12:52 Order name: Basic Metabolic Panel EDMS 06/21 12:52 Order name: Basic Metabolic Panel EDMS 06/21 12:52 Order name: Basic Metabolic Panel EDMS 06/21 12:52 Order name: Basic Metabolic Panel EDMS 06/21 12:52 Order name: CBC with Automated Diff EDMS 06/21 12:52 Order name: CBC with Automated Diff EDMS 06/21 12:52 Order name: CBC with Automated Diff EDMS 06/21 12:52 Order name: CBC with Automated Diff EDMS 06/21 12:52 Order name: CBC with Automated Diff EDMS 06/21 12:52 Order name: CBC with Automated Diff EDMS 06/21 12:52 Order name: CBC with Automated Diff EDMS 06/21 12:52 Order name: CBC with Automated Diff EDMS 06/21 12:52 Order name: Magnesium EDMS 06/21 12:52 Order name: Magnesium EDMS 06/21 12:52 Order name: Magnesium EDMS 06/21 12:52 Order name: Magnesium EDMS 06/21 12:52 Order name: Magnesium EDMS 06/21 12:52 Order name: Magnesium EDMS 06/21 12:52 Order name: Magnesium EDMS 06/21 12:52 Order name: Magnesium EDMS 06/21 12:59 Order name: Lipid Profile EDMS 06/21 12:59 Order name: Hemoglobin A1c EDMS 06/21 09:25 Order name: XRAY Chest (1 view); Complete Time: 10:34 cp 06/21 10:34 Interpretation: Report review. cp 06/21 09:45 Order name: CT Head Brain wo Cont; Complete Time: 12:08 cp 06/21 12:08 Interpretation: Report reviewed. cp 06/21 09:45 Order name: CT Head Angio; Complete Time: 12:14 cp 06/21 12:15 Interpretation: Report reviewed. cp 06/21 09:45 Order name: CT Neck Angio; Complete Time: 12:14 cp 06/21 12:15 Interpretation: Report reviewed. cp 06/21 12:56 Order name: MRA Head Wo Cont EDMS 06/21 13:02 Order name: Occupational Therapy Consult [facility] 06/21 13:02 Order name: Physical Therapy Consult [facility] 06/21 09:25 Order name: Cardiac monitoring; Complete Time: 09:38 cp 06/21 09:25 Order name: EKG - Nurse/Tech; Complete Time: 09:38 cp 06/21 09:25 Order name: IV Saline Lock; Complete Time: 10:16 cp 06/21 09:25 Order name: Labs collected and sent; Complete Time: 10:16 cp 06/21 09:25 Order name: O2 Per Protocol; Complete Time: 09:32 cp 06/21 09:25 Order name: O2 Sat Monitoring; Complete Time: 09:32 06/21 10:31 Order name: Labs - recollect needed: recollect the blood/ hemolyzed per lab; Complete eb Time: 10:52 EC:49 Rate is 68 beats/min. Rhythm is regular. WV interval is normal. QRS interval is normal. cp QT interval is normal. T waves are Inverted in leads III, aVR. Interpreted by me. Reviewed by me. Administered Medications: 09:43 Drug: Meclizine PO 25 mg PO once Route: PO; kc6 10:35 Follow up: Response: No adverse reaction kc6 13:16 Drug: Aspirin PO Chewable Tablet 324 mg PO once; 81 mg tablets x 4 Route: PO; kc6 13:58 Follow up: Response: No adverse reaction kc6 13:17 Drug: foLIC Acid IVPB 1 mg IVPB once Route: IVPB; Site: left antecubital; kc6 13:58 Follow up: Response: No adverse reaction; IV Status: Completed infusion; IV Intake: kc6 0.2ml Disposition: 20:19 Co-signature as Attending Physician, Norm Schwarz MD I reviewed the patient's care rt provided by the Advanced Practice Provider and agree with the diagnosis and treatment plan. 06/22 17:13 Chart complete. cp Disposition Summary: 06/21/24 12:37 Hospitalization Ordered Notes: Hospitalization Status: Inpatient Admission cp Provider: Norma Iyer cp Location: Telemetry/MedSurg (Inpatient) cp Condition: Stable cp Problem: new cp Symptoms: have improved cp Bed/Room Type: Standard cp Room Assignment: 425(06/21/24 16:31) eb Diagnosis - Dizziness and giddiness cp - Weakness cp - Paresthesia of skin cp Forms: - Medication Reconciliation Form cp - SBAR form cp - Leadership Thank You Letter cp NIH Stroke Scale - NIH Stroke Score Date: 06/21/2024 Time: 09:28 Total Score = 2 10. Dysarthria (speech clarity - read or repeat words) - 0(Normal) 11. Extinction and Inattention (visual/tactile/auditory/spatial/personal) - 0(No abnormality) 1a. Level of Consciousness (LOC) - 0(Alert) 1b. Level of Consciousness (LOC) (Month \T\ Age) - 0(Both) 1c. LOC Commands (Open \T\ Closes Eyes/Senior Electrical Engineer) - 0(Both) 2. Best Gaze (Lateral Gaze Paresis) - 0(Normal) 3. Visual Field Loss - 0(No visual loss) 4. Facial Palsy - 1(Minor Paralysis) 5a. Left Arm: Motor (10-second hold) - 0(No drift) 5b. Right Arm: Motor (10-second hold) - 0(No drift) 6a. Left Leg: Motor (5-second hold - always test supine) - 0(No drift) 6b. Right Leg: Motor (5-second hold - always test supine) - 0(No drift) 7. Limb Ataxia (finger/nose \T\ heel/shipman - test with eyes open) - 0(Absent) 8. Sensory Loss (pinprick arms/legs/face) - 1(Mild to moderate loss) 9. Best Language: Aphasia (description/naming/reading) - 0(No aphasia) Initials: kc6 NIH Stroke Scale - NIH Stroke Score Date: 06/21/2024 Time: 12:33 Total Score = 1 10. Dysarthria (speech clarity - read or repeat words) - 0(Normal) 11. Extinction and Inattention (visual/tactile/auditory/spatial/personal) - 0(No abnormality) 1a. Level of Consciousness (LOC) - 0(Alert) 1b. Level of Consciousness (LOC) (Month \T\ Age) - 0(Both) 1c. LOC Commands (Open \T\ Closes Eyes/Senior Electrical Engineer) - 0(Both) 2. Best Gaze (Lateral Gaze Paresis) - 0(Normal) 3. Visual Field Loss - 0(No visual loss) 4. Facial Palsy - 0(Normal) 5a. Left Arm: Motor (10-second hold) - 0(No drift) 5b. Right Arm: Motor (10-second hold) - 0(No drift) 6a. Left Leg: Motor (5-second hold - always test supine) - 0(No drift) 6b. Right Leg: Motor (5-second hold - always test supine) - 0(No drift) 7. Limb Ataxia (finger/nose \T\ heel/shipman - test with eyes open) - 0(Absent) 8. Sensory Loss (pinprick arms/legs/face) - 1(Mild to moderate loss) 9. Best Language: Aphasia (description/naming/reading) - 0(No aphasia) Initials: cp Signatures: Dispatcher [employer] EDMS Yunior Santana PA PA cp Botello, Elizabeth eb Campbell, Kaitlyn, RN RN kc6 Norm Schwarz MD MD rt Corrections: (The following items were deleted from the chart) 06/21 09:45 09:45 Head Angio+CT.RAD.BRZ ordered. EDMS EDMS 09:45 09:45 Neck Angio+CT.RAD.BRZ ordered. EDMS EDMS 12:34 12:27 NIHSS Score: 1 cp cp 16:31 12:37 cp eb 06/22 16:54 06/21 09:28 Neuro: Positive for dizziness, tingling all over, Negative for cp altered mental status, headache, cp
--- NOTE | 2024-06-21 12:38 | ER ---
Nurse's Notes [facility] Name: Omayra Mancia Age: 63 yrs Sex: Female : 1960 Arrival Date: 06/21/2024 Time: 09:04 Bed 17 Private MD: Diagnosis: Dizziness and giddiness;Weakness;Paresthesia of skin Presentation: 06/21 09:28 Chief complaint: Patient states: whole body tingling, heavy mouth, dizziness and kc6 increased left sided numbness/weakness x2 weeks. pt reports seeing her PCP on and they told her to f/u with neurologist. Coronavirus screen: At this time, the client does not indicate any symptoms associated with coronavirus-19. Ebola Screen: No symptoms or risks identified at this time. An acute neurological deficit is present. The charge nurse has been notified. Pre-hospital glucose is not applicable to this patient. Initial Sepsis Screen: Does the patient meet any 2 criteria? No. Patient's initial sepsis screen is negative. Does the patient have a suspected source of infection? No. Patient's initial sepsis screen is negative. Risk Assessment: Do you want to hurt yourself or someone else? Patient reports no desire to harm self or others. Onset of symptoms was June 07, 2024. 09:28 Method Of Arrival: Ambulatory [facility] 09:28 Acuity: FATMATA 3 kc6 Triage Assessment: 09:30 The onset of the patients symptoms was more than six hours ago. kc6 Stroke Activation: Symptom onset > 6 hours Physician: ED Attending; Name: ; Notified At: ; Arrived At: Physician: Mid-Level Provider; Name: ; Notified At: ; Arrived At: Physician: [not used]; Name: ; Notified At: ; Arrived At: Physician: [not used]; Name: ; Notified At: ; Arrived At: Physician: [not used]; Name: ; Notified At: ; Arrived At: Historical: - Allergies: : No Known Allergies; kc6 - PMHx: :30 diabetes mellitus; Cerebrovascular accident; 2020; Bronchitis; insomnia (Bronchitis); kc6 Fibromyalgia; Arthritis; Hypertensive disorder; - PSHx: :30 Cholecystectomy; Arthroplasty of knee; hysterectomy; kc6 - Immunization history:: Adult Immunizations up to date. - Infectious Disease History:: Denies. - Social history:: Smoking status: Patient denies any tobacco usage or history of. Screenin:43 [facility] ED Fall Risk Assessment (Adult) History of falling in the last 3 months, kc6 including since admission No falls in past 3 months (0 pts) Confusion or Disorientation No (0 pts) Intoxicated or Sedated No (0 pts) Impaired Gait No (0 pts) Mobility Assist Device Used No (0 pt) Altered Elimination No (0 pt) Score/Fall Risk Level 0 - 2 = Low Risk Oriented to surroundings, Maintained a safe environment, Educated pt \T\ family on fall prevention, incl call for assistance when getting out of bed. Abuse screen: Denies threats or abuse. Denies injuries from another. Nutritional screening: No deficits noted. Tuberculosis screening: No symptoms or risk factors identified. Assessment: 09:28 VAN Scoring: Arm Drift: Patients demonstrates NO arm weakness. Patient is VAN Negative. kc6 Visual Disturbance: No visual disturbance noted. Aphasia: No aphasia noted. Neglect: No neglect noted. [place] Swallow Protocol Brief Cognitive Screen What is your name? Normal, Where are you right now? Normal, What year is it? Normal. Oral Mechanism Examination Facial Symmetry: Normal, Motion: Normal, Lip Closure: Normal, Oral Mechanism Result: Normal. 3 oz Water Swallow Challenge: Pt able to drink all water without stopping, coughing, choking or throat clearing: Yes Result: PASS MD Notified: Norm Schwarz MD. General: Appears in no apparent distress. comfortable, well groomed, well developed, Behavior is calm, cooperative, appropriate for age. Pain: Denies pain. Neuro: Level of Consciousness is awake, alert, obeys commands, Oriented to person, place, time, situation, Appropriate for age Neonatal Pediatric Nurse are weak on left Moves all extremities. Full function Weakness in left hand(s) arm(s) leg(s) Gait is steady, Speech is normal, Facial droop on left, Facial symmetry: tongue is midline, Pupils are PERRLA, Tingling in face, left arm and left leg Numbness in face, left arm and left leg Reports dizziness. Cardiovascular: Reports lightheadedness, Denies chest pain, shortness of breath, Capillary refill < 3 seconds. Respiratory: Airway is patent Trachea Respiratory effort is even, unlabored, Respiratory pattern is regular, symmetrical. GI: No signs and/or symptoms were reported involving the gastrointestinal system. : No signs and/or symptoms were reported regarding the genitourinary system. EENT: No signs and/or symptoms were reported regarding the EENT system. Derm: No signs and/or symptoms reported regarding the dermatologic system. Skin is intact, is healthy with good turgor, Skin is pink, warm \T\ dry. Musculoskeletal: No signs and/or symptoms reported regarding the musculoskeletal system. Circulation, motion, and sensation intact. Range of motion: intact in all extremities. 09:28 [place] Swallow Protocol Exclusion Criteria: Exclusion Criteria Result: Proceed. TNKase kc6 (Tenecteplase) Screening: Indications: Treatment will start within 4.5 hours onset of symptoms: No. 10:28 Reassessment: Patient appears in no apparent distress at this time. No changes from kc6 previously documented assessment. Patient and/or family updated on plan of care and expected duration. Pain level reassessed. Patient is alert, oriented x 3, equal unlabored respirations, skin warm/dry/pink. 11:28 Reassessment: Patient appears in no apparent distress at this time. No changes from kc6 previously documented assessment. Patient and/or family updated on plan of care and expected duration. Pain level reassessed. Patient is alert, oriented x 3, equal unlabored respirations, skin warm/dry/pink. 12:53 Reassessment: Patient appears in no apparent distress at this time. No changes from kc6 previously documented assessment. Patient and/or family updated on plan of care and expected duration. Pain level reassessed. Patient is alert, oriented x 3, equal unlabored respirations, skin warm/dry/pink. 13:58 Reassessment: Patient appears in no apparent distress at this time. No changes from kc6 previously documented assessment. Patient and/or family updated on plan of care and expected duration. Pain level reassessed. Patient is alert, oriented x 3, equal unlabored respirations, skin warm/dry/pink. Vital Signs: 09:28 BP 146 / 83; Pulse 73; Resp 16 S; Temp 98.7(O); Pulse Ox 97% on R/A; Weight 78.93 kg kc6 (M); Height 5 ft. 1 in. (R); Pain 0/10; 10:16 BP 139 / 76; Pulse 68; Resp 16 S; Pulse Ox 98% on R/A; kc6 12:53 BP 124 / 78; Pulse 64; Resp 18 S; Pulse Ox 99% on R/A; kc6 09:28 Body Mass Index 32.88 (78.93 kg, 154.94 cm) kc6 09:28 Pain Scale: Adult kc6 NIH Stroke Scale Scores: 09:28 NIHSS Score: 2 kc6 12:33 NIHSS Score: 1 cp ED Course: 09:10 Patient arrived in ED. cj3 09:13 Yunior Santana PA is PHCP. cp 09:13 Norm Schwarz MD is Attending Physician. cp 09:28 Jerica Jeong, JOLLY is Primary Nurse. kc6 09:30 Triage completed. kc6 09:30 Arm band placed on. kc6 09:42 XRAY Chest (1 view) In Process Unspecified. EDMS 09:43 Patient has correct armband on for positive identification. Bed in low position. Call [facility] light in reach. Side rails up X 1. environmental monitoring specialist on. Pulse ox on. NIBP on. Door closed. Noise minimized. Lights dimmed. Pillow given. Verbal reassurance given. Assisted to bathroom. 09:43 Patient maintains SpO2 saturation greater than 95% on room air. kc6 09:43 EKG done, by ED staff, reviewed by Yunior KAUR. em1 10:16 Missed attempt(s): 20 gauge in right antecubital area. Inserted saline lock: 22 gauge kc6 in right hand, using aseptic technique. Blood collected. Flushed with 10 mL NS. 10:52 Lab(s) recollected, by me, sent to lab. Inserted saline lock: 20 gauge in left kc6 antecubital area, using aseptic technique. Blood collected. Flushed with 10 mL NS. 10:59 Radiology exam delayed due to lab results not completed at this time. (BUN/Creatinine). sm9 11:55 CT Head Brain wo Cont In Process Unspecified. EDMS 11:55 CT Head Angio In Process Unspecified. EDMS 11:55 CT Neck Angio In Process Unspecified. EDMS 12:37 Norma Iyer MD is Hospitalizing Provider. cp 13:00 Assisted to bathroom. kc6 13:58 No provider procedures requiring assistance completed. Patient admitted, IV remains in [facility] place. Administered Medications: 09:43 Drug: Meclizine PO 25 mg PO once Route: PO; kc6 10:35 Follow up: Response: No adverse reaction kc6 13:16 Drug: Aspirin PO Chewable Tablet 324 mg PO once; 81 mg tablets x 4 Route: PO; 6 13:58 Follow up: Response: No adverse reaction 6 13:17 Drug: foLIC Acid IVPB 1 mg IVPB once Route: IVPB; Site: left antecubital; kc6 13:58 Follow up: Response: No adverse reaction; IV Status: Completed infusion; IV Intake: kc6 0.2ml Medication: 13:58 VIS not applicable for this client. kc6 Intake: 13:58 IV: 0ml; Total: 0ml. 6 Outcome: 12:37 Decision to Hospitalize by Provider. cp 13:58 Admitted to ER Hold. Please see [facility] for further documentation. 6 13:58 Condition: good 13:58 Instructed on the need for admit, 17:39 Patient left the ED. 6 NIH Stroke Scale - NIH Stroke Score Date: 06/21/2024 Time: 09:28 Total Score = 2 10. Dysarthria (speech clarity - read or repeat words) - 0(Normal) 11. Extinction and Inattention (visual/tactile/auditory/spatial/personal) - 0(No abnormality) 1a. Level of Consciousness (LOC) - 0(Alert) 1b. Level of Consciousness (LOC) (Month \T\ Age) - 0(Both) 1c. LOC Commands (Open \T\ Closes Eyes/Duplicate Maker) - 0(Both) 2. Best Gaze (Lateral Gaze Paresis) - 0(Normal) 3. Visual Field Loss - 0(No visual loss) 4. Facial Palsy - 1(Minor Paralysis) 5a. Left Arm: Motor (10-second hold) - 0(No drift) 5b. Right Arm: Motor (10-second hold) - 0(No drift) 6a. Left Leg: Motor (5-second hold - always test supine) - 0(No drift) 6b. Right Leg: Motor (5-second hold - always test supine) - 0(No drift) 7. Limb Ataxia (finger/nose \T\ heel/shipman - test with eyes open) - 0(Absent) 8. Sensory Loss (pinprick arms/legs/face) - 1(Mild to moderate loss) 9. Best Language: Aphasia (description/naming/reading) - 0(No aphasia) Initials: kc6 NIH Stroke Scale - NIH Stroke Score Date: 06/21/2024 Time: 12:33 Total Score = 1 10. Dysarthria (speech clarity - read or repeat words) - 0(Normal) 11. Extinction and Inattention (visual/tactile/auditory/spatial/personal) - 0(No abnormality) 1a. Level of Consciousness (LOC) - 0(Alert) 1b. Level of Consciousness (LOC) (Month \T\ Age) - 0(Both) 1c. LOC Commands (Open \T\ Closes Eyes/Duplicate Maker) - 0(Both) 2. Best Gaze (Lateral Gaze Paresis) - 0(Normal) 3. Visual Field Loss - 0(No visual loss) 4. Facial Palsy - 0(Normal) 5a. Left Arm: Motor (10-second hold) - 0(No drift) 5b. Right Arm: Motor (10-second hold) - 0(No drift) 6a. Left Leg: Motor (5-second hold - always test supine) - 0(No drift) 6b. Right Leg: Motor (5-second hold - always test supine) - 0(No drift) 7. Limb Ataxia (finger/nose \T\ heel/shipman - test with eyes open) - 0(Absent) 8. Sensory Loss (pinprick arms/legs/face) - 1(Mild to moderate loss) 9. Best Language: Aphasia (description/naming/reading) - 0(No aphasia) Initials: cp Signatures: Dispatcher [employer] Jamal Morillo em1 Yunior Santana PA PA cp Jerica Jeong RN RN kc6 Radha Gaines 9 Heidy Hollins cj3 Corrections: (The following items were deleted from the chart) 10:56 09:30 NIHSS Score: 2 kc6 kc6
[2024-06-21] MEDS ORDERED: ONDANSETRON 4 MG/2 ML VIAL IV PRN (12:41)
[2024-06-21] MEDS ORDERED: ASPIRIN 81 MG CHEWABLE TABLET ONE (12:56)
[2024-06-21] MEDS ORDERED: FOLIC ACID 5 MG/ML VIAL ONE (12:58)
--- NOTE | 2024-06-21 16:14 | P.HP ---
Certification for Inpatient With expected LOS: <2 Midnights Patient will require the following post-hospital care: None Practitioner: I am a practitioner with admitting privileges, knowledge of patient current condition, hospital course, and medical plan of care. Services: Services provided to patient in accordance with Admission requirements found in Title 42 Section 412.3 of the Code of Federal Regulations Patient History Date of Service: 06/21/24 Reason for admission: Facial tingling, right-sided numbness, joint pains History of Present Illness: 63-year-old female with history of type 2 diabetes, prior CVA, fibromyalgia,, osteoarthritis admitted for a myriad of complaints including right thigh numbness, mild numbness, headaches, left arm pain, neck and joint pains. Yesterday was feeling dizzy. Symptoms ongoing for the past 3 weeks. Due to patient's prior history of CVA, she was concerned, then came to the ER. In the ER, CT of head, CTA of head and neck were all unremarkable Allergies No Known Allergies Allergy (Verified 10/15/20 09:29) Home medications list reviewed: Yes Home Medications: Metformin HCl 500 mg PO BID 12/06/19 Ascorbic Acid [Vitamin C] 1,000 mg PO DAILY 10/15/20 Cholecalciferol (Vitamin D3) [Vitamin D 5,000 Iu Cap] 5,000 unit PO DAILY 10/15/20 Naproxen Sodium [Aleve] 220 mg PO PRN PRN 10/15/20 Plant Stanol Evelyn [Cholest Off] 450 mg PO DAILY 10/15/20 - Past Medical/Surgical History -: Type 2 diabetes mellitus -: Hyperlipidemia -: Insomnia -: Cholecystectomy -: Hysterectomy -: Shin estrada Psychosocial/ Personal History: Lives at home with . - Social History Alcohol use: No CD- Drugs: No Caffeine use: No Review of Systems General: Weakness, Malaise Eyes: Unremarkable ENT: Unremarkable Respiratory: Unremarkable Cardiovascular: Unremarkable Gastrointestinal: Unremarkable Neurological: Weakness, Numbness Physical Examination - Physical Exam General: Alert, Oriented x3 HEENT: Atraumatic Neck: Supple Respiratory: Clear to auscultation bilaterally, Normal air movement Cardiovascular: No edema, Normal pulses, Regular rate/rhythm Gastrointestinal: Normal bowel sounds, Soft and benign, Non-distended Neurological: Normal gait, Normal speech, Normal strength at 5/5 x4 extr - Studies Laboratory Data (last 24 hrs) 06/21/24 06/21/24 06/21/24 10:46 10:46 10:46 WBC 6.60 Hgb 14.4 Hct 41.6 Plt Count 372 PT 10.8 INR 0.94 Sodium 140 Potassium 3.7 BUN 8 Creatinine 0.66 Glucose 129 H Magnesium 2.1 Total Bilirubin 1.0 AST 14 L ALT 25 Alkaline Phosphatase 113 Assessment and Plan - Plan 1. Paresthesias, mild numbness, headache, joint pains - CT of head without contrast, CTA of head and neck are all unremarkable - MRI of brain ordered for further evaluation -Permissive hypertension until MRI study done to rule out acute CVA - On aspirin, Plavix, and statin 2. Type 2 diabetes - Sliding scale insulin 3. History of fibromyalgia 4 History of breast CVA. - Continue statin, aspirin and Plavix - Allow for permissive hypertension for now until MRI study 5. DVT prophylaxis - Subcu Lovenox Patient was to be DNR - Advance Directives Does patient have a Living Will: No Does patient have a Durable POA for Healthcare: No
[2024-06-21] MEDS: INSULIN REGULAR (HUMAN) 100 UNIT/ML SQ SCH (16:30)
[2024-06-21] MEDS: ENOXAPARIN 40 MG/0.4 ML SQ SCH (18:22)
[2024-06-21 19:50] VITALS: BMI 32.8
[2024-06-21] MEDS: ATORVASTATIN 40 MG TAB PO SCH (20:53)
[2024-06-22 06:35] LABS: Absolute Eosinophils 0.1 K/uL (0-0.5); Absolute Lymphocytes (CBC) 2.2 K/uL (0.7-4.9); Absolute Monocytes 0.5 K/uL (0.1-1.3); Absolute Neutrophil 2.8 K/uL (1.8-8.0); Basophils % 0.2 % (0-1.3); Hematocrit 42.6 % (36.0-45.0); Hemoglobin 14.4 g/dL (12.0-15.0); Lymphocytes % 39.5 % (15.3-44.8); MCH 28.5 pg (27.0-35.0); MCHC 33.7 g/dL (32.0-36.0); MCV 84.4 fL (80-100); MPV 7.3 fL (7.6-11.3); Monocytes % 8.2 % (3.3-12.3); Neutrophils % 50.1 % (41.7-73.7); Nucleated Red Blood Cells % 0.1 % (0-0); Platelets 343 thou/uL (152-406); RBC Red Blood Cell Count 5.04 M/uL (3.86-4.86); Red Cell Distribution Width 13.9 % (12.1-15.2)
[2024-06-22 06:52] LABS: Anion Gap 9.9 mEq/L (5.0-15.0); Magnesium 2.2 mg/dL (1.6-2.4); Potassium 3.9 mEq/L (3.5-5.1)
[2024-06-22] MEDS: ASPIRIN EC 81 MG TAB PO SCH (08:09)
[2024-06-22] MEDS: KETOROLAC 30 MG/ML INJ IV ONE (08:09)
[2024-06-22] MEDS: CLOPIDOGREL 75 MG TABLET PO SCH (08:09)
[2024-06-22] MEDS: FAMOTIDINE 20 MG TAB PO SCH (08:09)
[2024-06-22] MEDS: ACETAMINOPHEN 500 MG TAB PO PRN (08:11)
--- NOTE | 2024-06-22 12:11 | P.PN ---
Subjective Date of Service: 06/22/24 Chief Complaint: Facial tingling, right-sided numbness, joint pains Subjective: No new changes Review of Systems 10-point ROS is otherwise unremarkable Physical Examination - Vital Signs Temperature: 97.7 F Blood Pressure: 114/66 Pulse: 69 Respirations: 15 Pulse Ox (%): 99 - Physical Exam General: Alert, Oriented x3 HEENT: Atraumatic Neck: Supple Respiratory: Clear to auscultation bilaterally Cardiovascular: No edema Gastrointestinal: Normal bowel sounds, Soft and benign, Non-distended Musculoskeletal: No clubbing, No swelling, No contractures Neurological: Normal gait, Normal strength at 5/5 x4 extr, Normal tone Assessment And Plan - Plan 1. Paresthesias, mild numbness, headache, joint pains - CT of head without contrast, CTA of head and neck are all unremarkable - MRI of brain pending -Permissive hypertension until MRI study done to rule out acute CVA - On aspirin, Plavix, and statin 2. Type 2 diabetes - Sliding scale insulin 3. History of fibromyalgia 4 History of CVA. - Continue statin, aspirin and Plavix 5. Essential HTN - controlled 6. [facility]
[2024-06-23 06:32] LABS: Absolute Basophils 0.1 K/uL (0-0.5); Absolute Eosinophils 0.1 K/uL (0-0.5); Absolute Lymphocytes (CBC) 2.2 K/uL (0.7-4.9); Absolute Monocytes 0.5 K/uL (0.1-1.3); Basophils % 1.4 % (0-1.3); Eosinophils % 1.7 % (0-4.4); Hematocrit 40.5 % (36.0-45.0); Hemoglobin 13.9 g/dL (12.0-15.0); Lymphocytes % 37.4 % (15.3-44.8); MCH 28.5 pg (27.0-35.0); MCHC 34.4 g/dL (32.0-36.0); MCV 82.7 fL (80-100); MPV 7.1 fL (7.6-11.3); Monocytes % 8.6 % (3.3-12.3); Neutrophils % 50.9 % (41.7-73.7); Nucleated Red Blood Cells % 0.1 % (0-0); Platelets 370 thou/uL (152-406); Red Cell Distribution Width 13.7 % (12.1-15.2)
--- NOTE | 2024-06-23 10:53 | EKG ---
Test Date: 2024-06-21 Test Time: 09:39:32 Gang Vibrator Operator: LIVIER MEASUREMENT RESULTS: Intervals: Rate: 68 CA: 162 QRSD: 86 QT: 386 QTc: 410 Ellis: P: 39 CA: 162 QRS: 9 T: 11 INTERPRETIVE STATEMENTS: Normal sinus rhythm Normal ECG Compared to ECG 08/09/2023 12:58:01 No significant changes Electronically Signed On 06-23-24 10:48:47 CDT by Thanh Ch
[2024-06-23] MEDS: METHYL SALICYLATE/MENTHOL 3 OZ TUBE TOP SCH (11:07)
[2024-06-23] MEDS: LIDOCAINE 4% PATCH TD SCH (11:52)
[2024-06-23] MEDS: MELOXICAM 7.5 MG TAB PO SCH (11:52)
--- NOTE | 2024-06-23 13:49 | P.PN ---
Subjective Date of Service: 06/23/24 Chief Complaint: Facial tingling, right-sided numbness, joint pains Subjective: No chest pain or shortness of breath. No nausea or vomiting. No abdominal pain. No obvious bleeding. Looks comfortable in the bed. Still complaining of left-sided tingling and numbness and mild weakness. Complaining of right shoulder pain which is chronic. Objective: General appearance: Alert and comfortable CVS: Normal S1 and S2 Lungs: Clear to auscultation bilaterally Abdomen: Soft, bowel sounds present, no tenderness Extremities: No lower extremity edema SUPERVISOR CORDUROY CUTTING: Moves all 4 extremities, right 5/5, left 4-5/5, no facial weakness. Right shoulder: No erythema no tenderness. Physical Examination - Vital Signs Temperature: 98.1 F Blood Pressure: 124/81 Pulse: 82 Respirations: 16 Pulse Ox (%): 100 - Studies Laboratory Data (last 24 hrs) 06/23/24 06/23/24 05:59 05:59 WBC 5.90 Hgb 13.9 Hct 40.5 Plt Count 370 Sodium 139 Potassium 4.0 BUN 8 Creatinine 0.78 Glucose 144 H Magnesium 2.0 Assessment And Plan - Plan 1. Paresthesias, mild weakness - CT of head CTA of head and neck are all unremarkable - MRI of brain pending -Permissive hypertension until MRI study done to rule out acute CVA - On aspirin, Plavix, and statin -get echo and neuro consult 2. Type 2 diabetes - Sliding scale insulin 3. History of fibromyalgia 4 History of CVA. - Continue statin, aspirin and Plavix 5. Essential HTN - controlled Plan discussed the patient and nursing staff.
--- NOTE | 2024-06-23 19:36 | CON ---
Reason For Consultation: Consultation called because of possible stroke. History Of Present Illness: Ms. Mancia is a 63-year-old, right-handed, patient with diabetes melli tus, dyslipidemia, and remote stroke that affected the left face, arm, leg, from which she said she h ad recovered very well. 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 She said she was able to stop home and check blood sugar around 120s and she, marlin lombardi, did not improve these symptoms. She eventually after about 2-3 weeks of these symptoms fluctu ating, came to the emergency room on the June 21. She was evaluated by head CT and CT angiogram of head and neck. No acute ischemic or hemorrhagic changes were identified on brain imaging. No intrac ranial bleed. Ventricles were of normal size. There were no significant hypodensities within the br ain. The findings were essentially unremarkable and similarly the CT scan of head and neck were unre markable. Her complete blood count with differential essentially showed unremarkable study, normal h emoglobin and hematocrit, white blood cell count is unremarkable. INR 0.94. Chemistries were also u nremarkable. Blood sugars ranged up to 163, normal calcium of 9.1. Magnesium 2.0. Urinalysis shows pH of 8, which was otherwise unremarkable. She said that the symptoms seem to have fluctuated, but potentially have improved. She did receive aspirin, Plavix, folic acid, and statin in the emergency room. Sliding scale initiated and blood pressures were largely normotensive. She does have a brain MRI pending. Past Medical History: Including the stroke noted with right brain left body involvement. She has di abetes mellitus, insomnia, and dyslipidemia. Past Surgical History: Cholecystectomy, hysterectomy, abdominoplasty. Home Medications: Metformin 500 mg twice daily, Vitamin C 1000 mg daily, Vitamin D 5000 units daily, Naprosyn 220 mg as needed while hospitalized. She is on Pepcid 20 mg twice daily, lidocaine patch t opically daily, Mobic 15 mg daily, Zofran 4 mg every 8 hours as needed, Lipitor 40 mg at bedtime, Paresh vix 75 mg daily, aspirin 81 mg daily, and Tylenol for temperature greater than 101, 500 mg every 6 ho urs as needed. Family History: Noncontributory. Allergies: NO KNOWN DRUG ALLERGIES. Review of Systems: Aside from what she did mention above, she did feel the generalized dizziness, some right and left-si ded facial tingling and numbness, perhaps more in the left than the right and some perhaps incoordina tion. Otherwise, negative on a systems review. Physical Examination: Vital Signs: Blood pressure 124/81, pulse 82, respiratory rate 16, temperature , oxygen sa turation 100% on room air. General: Ms. Mancia is sitting in a chair beside the bed. HEENT: She appears normocephalic, atraumatic. Sclerae anicteric. Oropharynx pink and moist. Neck: Supple. Chest: Clear. Heart: Regular. Extremities: Show no significant edema, cyanosis, or clubbing. Neurological: She is alert, oriented to situation, place, person. Follows commands appropriately. Cranial nerves 2-12 show no obvious deficits. Sensation appears intact in left and right side. Symm etric face with equal excursions and smiling. In terms of motor exam, no obvious deficits on the lef t compared to right side. Able to hold the hands up for 10 count without any difficulty. She did mcnally ve also good strength in both lower extremities bilaterally. Sensation appears intact left to right. No asymmetries noted. Coordination appears intact in the upper and lower extremities and reflexes. She has brisk reflexes noted in the left upper and lower extremities and around 2 to 3/5 in the kne e, biceps, triceps. On the right side, 1/5 in the biceps, triceps, patellae and she will be ambulat ed with the therapy service. Assessment: Ms. Mancia is a 63-year-old patient who comes in with generalized nonfocal complaints of systemic nature of apparent dizziness, unclear of the etiology. She has had a prior stroke affect ing right brain, left body. That stroke is nonapparent on the CT scan. She has an MRI of the brain pending. She does not have any significant abnormalities in terms of her blood work. There is mildl y elevated blood sugars and no significant anemia. No abnormal white count. Kidney function is unre markable. Her cholesterol panel showed elevated triglycerides 333, total cholesterol 223, and LDL ch olesterol 99. Urinalysis is unremarkable. In terms of the etiology of her symptoms is at this point unclear, perhaps a generalized issue may be; could be anxiety, stress; could be dehydration, althoug h not reflected in laboratory studies. Plan: 1. We will follow up brain MRI. 2. After discharge, perhaps she may benefit from routine electroencephalogram. If these events are r ecurrent, perhaps an ambulatory video-EEG monitoring study may be helpful. She should maintain a caitie ry of events. At this point, she should continue with aggressive stroke risk reduction including asp irin, Plavix, folic acid, statin; aggressive management of blood sugars, blood pressures, and LDL cho lesterol should be targeting less than 70. She should engage in regular exercise about 30 minutes da maggie 5 days weekly. Diet modifications to decrease the risk of stroke include increasing certain food s that are not animal based and decreasing animal based foods and she may follow up in Dr. De La Torre's clinic within a month of discharge. EULOGIO/DOMINIC Voice ID: [id number] Report ID: [id number]
--- NOTE | 2024-06-23 21:43 | RAD REPORT ---
EXAMINATION: MRI BRAIN WITHOUT CONTRAST CLINICAL INDICATION: Female, 63 years old. paresthesias TECHNIQUE: Multiplanar multisequence MR images of the brain were obtained without intravenous contras t. Unless otherwise specified, incidental findings do not require dedicated imaging follow-up. COMPARISON: Head CT and CT angiogram 06/21/2024 FINDINGS: INTRACRANIAL: Midline structures are unremarkable. Diffusion-weighted images show no acute or early subacute infarction. There is mild brain atrophy with mildT2/FLAIR hyperintensities in the periventricular and deep white matter regions, likely representing chronic microvascular ischemic damien nges. There is no mass effect or midline shift. No abnormal extraaxial fluid collection. VASCULATURE: Normal signal voids in the larger intracranial arteries and dural venous sinuses. SINUSES: Right maxillary sinus mucus retention cyst mastoid air cells are predominantly clear. BONE: The marrow signal pattern is within normal limits. IMPRESSION: No significant intracranial abnormalities.
[2024-06-24 06:59] LABS: Absolute Basophils 0.1 K/uL (0-0.5); Absolute Eosinophils 0.1 K/uL (0-0.5); Absolute Lymphocytes (CBC) 2.2 K/uL (0.7-4.9); Absolute Monocytes 0.5 K/uL (0.1-1.3); Absolute Neutrophil 4.2 K/uL (1.8-8.0); Eosinophils % 1.4 % (0-4.4); Hematocrit 41.8 % (36.0-45.0); Hemoglobin 14.5 g/dL (12.0-15.0); Lymphocytes % 31.2 % (15.3-44.8); MCH 28.9 pg (27.0-35.0); MCHC 34.6 g/dL (32.0-36.0); MCV 83.6 fL (80-100); MPV 7.2 fL (7.6-11.3); Monocytes % 7.4 % (3.3-12.3); Nucleated Red Blood Cells % 0.1 % (0-0); Platelets 357 thou/uL (152-406); Red Cell Distribution Width 13.4 % (12.1-15.2)
[2024-06-24 07:12] LABS: Magnesium 1.9 mg/dL (1.6-2.4)
[2024-06-24 09:57] VITALS: O2SAT 96
--- NOTE | 2024-06-24 12:22 | ECHO ---
HEIGHT: 5 ft 1 in WEIGHT: 174 lb 0 oz DATE OF STUDY: 06/24/[address]: Eric Barroso 2-DIMENSIONAL: YES M.MODE: YES DOPPLER: YES COLOR FLOW: YES TDS: PORTABLE: YES DEFINITY: BUBBLE STUDY: DIAGNOSIS: TRANSIENT ISCHEMIC ATTACK VS CEREBRAL VASCULAR ACCIDENT CARDIAC HISTORY: CATHERIZATION: NO SURGERY: NO PROSTHETIC VALVE: NO PACEMAKER: NO MEASUREMENTS (cm) DIASTOLIC (NORMALS) SYSTOLIC (NORMALS) IVSd 1.3 (0.6-1.2) LA Diam 2.9 (1.9-4.0) LVEF 57% LVIDd 3.2 (3.5-5.7) LVIDs 2.3 (2.0-3.5) %FS 29% LVPWd 1.4 (0.6-1.2) Ao Diam 2.7 (2.0-3.7) 2 DIMENSIONAL ASSESSMENT: RIGHT ATRIUM: NORMAL LEFT ATRIUM: NORMAL RIGHT VENTRICLE: NORMAL LEFT VENTRICLE: NORMAL TRICUSPID VALVE: TRACE TRICUSPID REGURGITATION MITRAL VALVE: NORMAL PULMONIC VALVE: NORMAL AORTIC VALVE: NORMAL PERICARDIAL EFFUSION: NONE AORTIC ROOT: NORMAL LEFT VENTRICULAR WALL MOTION: NORMAL DOPPLER/COLOR FLOW: NORMAL COMMENTS: 1. NORMAL LEFT VENTRICULAR SYSTOLIC FUNCTION, EJECTION FRACTION 60-65%, NORMAL WALL MOTION 2. NORMAL DIASTOLIC FUNCTION TECHNOLOGIST: HEBERT YOO
--- NOTE | 2024-06-24 17:05 | P.DS ---
Admission Date: 06/23/24 Discharge Date: 06/25/24 Disposition: ROUTINE DISCHARGE Discharge Condition: GOOD Reason for Admission: Facial tingling, right-sided numbness, joint pains Hospital Course: 1. Paresthesias, mild weakness - CT of head CTA of head and neck are all unremarkable - MRI of brain neg - On aspirin, Plavix, and statin -echo EF 60-65% -neuro consult rec o/p f/u 2. Type 2 diabetes 3. History of fibromyalgia 4 History of CVA. - Continue statin, aspirin and Plavix 5. Essential HTN 64-year-old patient admitted with tingling and numbness and mild left-sided weakness, neurology was consulted, she had a CT of the head, CTA of the head and neck, they were all negative, she had an MRI brain that was negative as well, when I see the patient today, tingling and numbness is resolved, she still feels little bit of weakness on the left side, PT OT cleared her, neurology is okay to for her to follow-up as an outpatient, I discussed with the case management and home health care social worker about setting up outpatient therapy but patient was not interested, she prefers to follow up with PCP and neurology as an outpatient, otherwise no other acute issues going on so I am planning to discharge her to go home. Subjective: No chest pain or shortness of breath. No nausea or vomiting. No abdominal pain. No obvious bleeding. Looks comfortable in the bed. Denies any tingling or numbness. Still complaining of mild left-sided weakness. Objective: General appearance: Alert and comfortable CVS: Normal S1 and S2 Lungs: Clear to auscultation bilaterally Abdomen: Soft, bowel sounds present, no tenderness Extremities: No lower extremity edema EXECUTIVE SERVICES ADMINISTRATOR: Right side 5/5, left side 4-5/5, no facial weakness. Vital Signs/Physical Exam: Temp Pulse Resp BP Pulse Ox 97.9 F 101 H 18 114/89 97 06/24/24 12:00 06/24/24 12:00 06/24/24 12:00 06/24/24 12:00 06/24/24 12:00 Laboratory Data at Discharge: WBC 7.10 thou/uL (4.3-10.9) 06/24/24 06:51 Hgb 14.5 g/dL (12.0-15.0) 06/24/24 06:51 Hct 41.8 % (36.0-45.0) 06/24/24 06:51 Plt Count 357 thou/uL (152-406) 06/24/24 06:51 PT 10.8 SECONDS (10-13.0) 06/21/24 10:46 INR 0.94 06/21/24 10:46 Sodium 139 mEq/L (136-145) 06/24/24 06:51 Potassium 4.0 mEq/L (3.5-5.1) 06/24/24 06:51 BUN 10 mg/dL (7-18) 06/24/24 06:51 Creatinine 0.77 mg/dL (0.55-1.02) 06/24/24 06:51 Glucose 138 mg/dL (74-106) H 06/24/24 06:51 Magnesium 1.9 mg/dL (1.6-2.4) 06/24/24 06:51 Total Bilirubin 1.0 mg/dL (0.2-1.0) 06/21/24 10:46 AST 14 U/L (15-37) L 06/21/24 10:46 ALT 25 U/L (13-56) 06/21/24 10:46 Alkaline Phosphatase 113 U/L (45-117) 06/21/24 10:46 Triglycerides 334 mg/dL (<150) H 06/21/24 21:14 Cholesterol 223 mg/dL (<200) H 06/21/24 21:14 HDL Cholesterol 57 mg/dL (40-60) 06/21/24 21:14 Cholesterol/HDL Ratio 3.91 06/21/24 21:14 Home Medications: Metformin HCl 500 mg PO BID 12/06/19 Aspirin Chewable [Aspirin Chewable*] 1 tab PO DAILY 06/21/24 Cholecalciferol (Vitamin D3) [Vitamin D3] 2,000 unit PO DAILY 06/21/24 Fish Oil/Dha/Epa [Fish Oil 1,200 mg Fish Oil] 1 cap PO DAILY 06/21/24 Meloxicam 15 mg PO DAILY 06/21/24 Trazodone [Desyrel*] 50 mg PO BEDTIME 06/21/24 Vit C/E/Zn/Coppr/Lutein/Zeaxan [Preservision Areds 2 Softgel] 1 cap PO BID 06/21/24 Zinc Gluconate [Zinc] 50 mg PO DAILY 06/21/24 Atorvastatin Calcium [Lipitor] 40 mg PO BEDTIME #30 tab 06/24/24 Clopidogrel Bisulfate [Plavix*] 75 mg PO DAILY #30 tab 06/24/24 New Medications: Atorvastatin Calcium [Lipitor] 40 mg PO BEDTIME #30 tab Clopidogrel Bisulfate [Plavix*] 75 mg PO DAILY #30 tab Diet: ADA Activity: Ad tino Followup: Tee De La Torre MD [ASSOCIATE-ACTIVE - CAN ADMIT] - 1-2 Weeks (follow up in 1-2 weeks) Napoleon Santiago DO [Primary Care Provider] - 1 Week (f/u with PCP in 1 week with CBC and CMP, thryodi profile) Time spent managing pt's care (in minutes): 34
[2024-06-24 17:49] VITALS: BP 133/83
[2024-06-24 17:59] VITALS: TEMP 97.6
== END 2024-06-24 18:25 | disposition home or self-care (01) | DRG 92 ==
LOC: ER 09:04 → ERHOLD 16:07 → 4TH 17:09 → OBSVTOIN 06-23 11:36
PROVIDERS: ADMIT Internal Medicine; ATTEND Hospitalist
DX: R20.2 Paresthesia of skin (principal); I69.354 Hemiplegia and hemiparesis following cerebral infarction affecting left non-dominant side; E11.9 Type 2 diabetes mellitus without complications; I10 Essential (primary) hypertension; E78.5 Hyperlipidemia, unspecified; M79.7 Fibromyalgia; R51.9 Headache, unspecified; R29.702 NIHSS score 2; Z66 Do not resuscitate; Z79.84 Long term (current) use of oral hypoglycemic drugs; Z90.49 Acquired absence of other specified parts of digestive tract; Z79.899 Other long term (current) drug therapy; Z90.710 Acquired absence of both cervix and uterus
CPT/HCPCS: 36415; 70450; 70496; 70498; 70551; 71045; 80048; 80061; 80076; 81001; 82947; 83036; 83735; 83880; 84484; 85025; 85610; 93005; 93306; 96365; 97110; 97116; 97161; 97165; 99285; G0378; J1650; J1815; J2003; J8597; Q9967